=== PATIENT | female | born 1965 | race Caucasian/White ===

== ENCOUNTER → 2016-09-25 | Outpatient (CLI) | payer BC ==
[~2016-09-25] MED LIST: ABL10 PO; ABL5 PO; B-CO1TAB53 PO; DIVA500T3 PO; FEXO1TAB46 PO; IPRASOL4 INH; LAMO200T38 PO; LVX100 PO; OMEP20CA9 PO; POTA1CAP2 PO; QUET1TAB34 PO; SNK PO; SUMA20SP; SYMIN160 INH; VTMD1000 PO
[2016-09-25 17:10] LABS: BASO % 0.2 %; BASO ABS # 0.02 K/uL (0-0.2); COMPLETE YES; EOS % 0.5 %; HEMATOCRIT 36.8 % (37-47); IG% 0.2 %; LYMPH % 18.9 %; LYMPH ABS # 2.51 K/uL (1.2-3.4); MEAN CELL VOLUME 81.8 fL (80-100); MEAN CORPUSCULAR HEMOGLOBIN 27.8 pg (25-34); MEAN PLATELET VOLUME 10.5 fL (7.4-10.4); MONO % 5.1 %; NEUT % 75.1 %; PLATELET COUNT 120 K/uL (130-400); WHITE BLOOD COUNT 13.26 K/uL (4.8-10.8)
[2016-09-25 17:23] LABS: ALT/SGPT 65 U/L (12-78); AMYLASE 75 U/L (25-115); BLOOD UREA NITROGEN 20 mg/dl (7-18); BUN/CREATININE RATIO 15.6 (10-20); CALCIUM 9.8 mg/dl (8.5-10.1); CARBON DIOXIDE 27 mmol/L (21-32); CHLORIDE 105 mmol/L (98-107); GLUCOSE 123 mg/dl (70-99); POTASSIUM 3.8 mmol/L (3.5-5.1); SODIUM 141 mmol/L (136-145)
[2016-09-25 17:26] LABS: ALB/GLOB RATIO 1.6 (0.9-2); ALKALINE PHOSPHATASE 116 U/L (45-117); AST/SGOT 34 U/L (15-37)
== END | disposition home or self-care (01) ==
LOC: C.LABBC 13:40
PROVIDERS: ATTEND Family Medicine
DX: R10.10 Upper abdominal pain, unspecified (principal)

== ENCOUNTER → 2016-10-15 | Outpatient (CLI) | payer BC ==
[2016-10-15 14:37] LABS: BASO % 0.3 %; BASO ABS # 0.02 K/uL (0-0.2); COMPLETE YES; EOS % 2.9 %; HEMATOCRIT 36.5 % (37-47); IG% 0.5 %; LYMPH % 26.9 %; LYMPH ABS # 1.96 K/uL (1.2-3.4); MEAN CELL VOLUME 84.3 fL (80-100); MEAN CORPUSCULAR HEMOGLOBIN 27.3 pg (25-34); MEAN CORPUSCULAR HGB CONC 32.3 g/dl (32-36); MEAN PLATELET VOLUME 10.6 fL (7.4-10.4); MONO % 6.4 %; PLATELET COUNT 185 K/uL (130-400); RED BLOOD COUNT 4.33 M/uL (4.2-5.4); WHITE BLOOD COUNT 7.29 K/uL (4.8-10.8)
[2016-10-15 14:47] LABS: ESTIMATED AVERAGE GLUCOSE 120 mg/dl; HA1C FLAG Normal (Normal)
[2016-10-15 15:20] LABS: ALT/SGPT 61 U/L (12-78); AST/SGOT 16 U/L (15-37); BLOOD UREA NITROGEN 18 mg/dl (7-18); BUN/CREATININE RATIO 16.8 (10-20); CALCIUM 9.5 mg/dl (8.5-10.1); CARBON DIOXIDE 27 mmol/L (21-32); CHLORIDE 108 mmol/L (98-107); GLUCOSE 92 mg/dl (70-99); POTASSIUM 4.4 mmol/L (3.5-5.1); SODIUM 143 mmol/L (136-145)
[2016-10-15 15:28] LABS: ALB/GLOB RATIO 1.2 (0.9-2); ALKALINE PHOSPHATASE 135 U/L (45-117); TOTAL IRON BINDING CAPACITY 384 mcg/dl (250-450)
== END | disposition home or self-care (01) ==
LOC: C.LAB 12:56
PROVIDERS: ATTEND Family Medicine
DX: R73.09 Other abnormal glucose (principal); N18.3 Chronic kidney disease, stage 3 (moderate)

== ENCOUNTER → 2016-11-04 | Outpatient (CLI) | payer BC ==
[2016-11-04 15:15] LABS: BLOOD UREA NITROGEN 13 mg/dl (7-18); BUN/CREATININE RATIO 11.4 (10-20); CALCIUM 9.8 mg/dl (8.5-10.1); CARBON DIOXIDE 30 mmol/L (21-32); CHLORIDE 105 mmol/L (98-107); GLUCOSE 112 mg/dl (70-99); POTASSIUM 4.2 mmol/L (3.5-5.1); SODIUM 138 mmol/L (136-145)
== END | disposition home or self-care (01) ==
LOC: C.LABBC 11:35
PROVIDERS: ATTEND Family Medicine
DX: Z79.899 Other long term (current) drug therapy (principal)

== ENCOUNTER → 2016-12-05 | Outpatient (CLI) | payer BC ==
[2016-12-05 11:25] LABS: ALB/GLOB RATIO 1.4 (0.9-2); ALKALINE PHOSPHATASE 103 U/L (45-117); ALT/SGPT 71 U/L (12-78); AST/SGOT 21 U/L (15-37); BLOOD UREA NITROGEN 21 mg/dl (7-18); CALCIUM 9.3 mg/dl (8.5-10.1); CARBON DIOXIDE 24 mmol/L (21-32); CHLORIDE 112 mmol/L (98-107); CREATININE 0.93 mg/dl (0.60-1.20); GLUCOSE 119 mg/dl (70-99); POTASSIUM 4.2 mmol/L (3.5-5.1); SODIUM 144 mmol/L (136-145)
== END | disposition home or self-care (01) ==
LOC: C.LABBC 08:38
PROVIDERS: ATTEND Family Medicine
DX: F06.31 Mood disorder due to known physiological condition with depressive features (principal)

== ENCOUNTER → 2017-05-08 | Outpatient (CLI) | payer BC ==
--- NOTE | 2017-05-08 16:09 | MAMMOGRAPHY REPORT ---
BILATERAL DIGITAL SCREENING MAMMOGRAM TOMOSYNTHESIS WITH CAD: 05/08/2017 CLINICAL HISTORY: Routine screening. Patient has no complaints. TECHNIQUE: Breast tomosynthesis in addition to standard 2D mammography was performed. Current study was also evaluated with a Computer Aided Detection (CAD) system. COMPARISON: Comparison is made to exams dated: 05/07/2016 mammogram, 05/03/2015 mammogram, and 4 mammogram - [facility]. BREAST COMPOSITION: There are scattered areas of fibroglandular density in both breasts. FINDINGS: No suspicious masses, calcifications, or areas of architectural distortion are noted in ei ther breast. There has been no significant interval change compared to prior exams. IMPRESSION: ACR BI-RADS CATEGORY 1: NEGATIVE There is no mammographic evidence of malignancy. A 1 year screening mammogram is recommended. The pa tient will receive written notification of the results. Approximately 10% of breast cancers are not detected with mammography. A negative mammographic report should not delay biopsy if a clinically suggestive mass is present. Priscilla Clinton M.D. ah/:05/08/2017 13:11:49 [employer] Supervisor: Becka HUNT(Kasia)(M), [facility] letter sent: Normal 1/2 BI-RADS Code: ACR BI-RADS Category 1: Negative
== END | disposition home or self-care (01) ==
LOC: C.MAMM 08:57
PROVIDERS: ATTEND Family Medicine
DX: Z12.31 Encounter for screening mammogram for malignant neoplasm of breast (principal)

== ENCOUNTER → 2017-05-27 | Outpatient (CLI) | payer BC ==
--- NOTE | 2017-05-28 23:47 | PULMONARY FUNCTION TEST ---
PULMONARY FUNCTION TEST Spirometry is normal. Repeat study done following bronchodilators showed mild but not significant improvement in function. Flow volume loops on expiration were normal. It appeared the patient did not optimally perform the inspiratory portion of the flow volume loop.
== END | disposition home or self-care (01) ==
LOC: C.RC 12:32
PROVIDERS: ATTEND Family Medicine
DX: J45.909 Unspecified asthma, uncomplicated (principal)

== ENCOUNTER → 2017-10-14 | Day surgery (SDC) | payer BC, OTHER ==
[2017-10-03 09:55] VITALS: Ht 154.9 cm; Wt 83.6 kg
[~2017-10-14] VITALS: Ht 154.9 cm; Wt 83.6 kg
[~2017-10-14] MED LIST changes: -ABL10 PO; -ABL5 PO; +ARIP30TA3 PO; +ASCA500 PO; -DIVA500T3 PO; +LAMO200T35 PO; -LAMO200T38 PO; +LIDOCAINE HCL 2% 2 ML VIAL (20MG/ML) ONE; +LITH300T2 PO; +MIDAZOLAM HCL 1 MG/ML 2ML VIAL ONE; -OMEP20CA9 PO; +PROPOFOL IV EMULSION 10 MG/ML 20 ML VIAL IV ONE; -QUET1TAB34 PO; -SNK PO; +SODIUM CHLORIDE 0.9% 500ML 500 ML IV ONE; -SUMA20SP
--- NOTE | 2017-10-14 11:00 | Endo History and Physical ---
History & Physical Date of Service: Oct 14, 2017. Chief Complaint: screening Referring Physician: Dr. Rocky Long History of Present Illness 51 yo CF who presents for screening colonoscopy. Past Medical History Other Psy. Disorders, Depression Past Surgical History Hx Cardiac Surgery: No Hx Internal Defibrillator: No Hx Pacemaker: No Hx Abdominal Surgery: Yes (JOSE, HYSTER) Hx of Implantable Prosthesis: No Hx Post-Op Nausea and Vomiting: No Hx Cancer Surgery: No Hx Thoracic Surgery: No Hx Orthopedic: No Hx Urinary Tract Surgery: No Family History None Social History Smoking Status: Former Smoker Hx Substance Use: No Hx Alcohol Use: Yes (QUIT 7 YEARS AGO) Allergies Coded Allergies: Cat Dander (Verified Allergy, Unknown, FACIAL SWELLING AND RASH, 10/03/17) NO KNOWN DRUG ALLERGIES (Verified Allergy, Unknown, ., 10/03/17) Current Medications Reported Home Medications Medications Dose Route/Sig Max Daily Dose Days Date Category Vitamin C (Ascorbic Acid) 500 Mg Tab 1,000 Mg PO QPM 10/03/17 Reported [place] Carbonate 300 Mg Tab 2 Tabs PO HS 10/03/17 Reported [place] Carbonate 300 Mg Tab 300 Mg PO QAM 10/03/17 Reported Abilify (Aripiprazole) 30 Mg Tab 30 Mg PO HS 10/03/17 Reported Duoneb (Ipratropium-Albuterol) 3 Ml Nebu 1 Treatment INH UD PRN 10/27/14 Reported Super B-Complex (B-Complex W/Biotin & Folic Aci) 1 Tab Tab 1 Tab PO QAM 10/27/14 Reported Potassium Chloride Er (Potassium Chloride) 10 Meq Cap 10 Meq PO QPM 10/27/14 Reported Fluvoxamine Maleate 100 Mg Tab 1.5 Tabs PO QPM 10/27/14 Reported Symbicort 160/4.5 Inhaler (Budesonide/Formoterol Fumarate) 120 Puffs/ Aero 2 Puffs INH BID PRN 10/27/14 Reported Ashley (Fexofenadine Hcl) 180 Mg Tab 180 Mg PO DAILY PRN 10/27/14 Reported Vitamin D3 (Cholecalciferol) 1,000 Inter.unit Tab 1,000 Inter.unit PO BID 06/06/14 Reported Lamictal (Lamotrigine) 200 Mg Tab 200 Mg PO QPM 09/05/11 Reported Vital Signs Weight (Kilograms): 83.64 Height (Feet): 5 Height (Inches): 1 Date Time Temp Pulse Resp B/P (MAP) Pulse Ox O2 Delivery O2 Flow Rate FiO2 10/14/17 10:48 37 77 18 122/72 (89) 97 Room Air Physical Exam General Appearance: WD/WN, no apparent distress Respiratory/Chest: Auscultation: breath sounds normal Cardiovascular: Heart Auscultation: RRR Abdomen: Bowel Sounds: normal Inspection & Palpation: soft, non-distended, no tenderness, guarding & rebound Assessment and Plan Assessment: 51 yo CF who presents for screening colonoscopy. Plan: Proceed with colonoscopy.
--- NOTE | 2017-10-14 12:14 | GI REPORT ---
Procedure Date: 10/14/2017 11:00 AM Procedure: Colonoscopy Indications: Screening for colorectal malignant neoplasm Medicines: Monitored Anesthesia Care Complications: No immediate complications. Estimated Blood Loss: Estimated blood loss: none. Procedure: Pre-Anesthesia Assessment: - Prior to the procedure, a History and Physical was performed, and patient medications and allergies were reviewed. The patient's tolerance of previous anesthesia was also reviewed. The risks and benefits of the procedure and the sedation options and risks were discussed with the patient. All questions were answered, and informed consent was obtained. Prior Anticoagulants: The patient has taken no previous anticoagulant or antiplatelet agents. ASA Grade Assessment: III - A patient with severe systemic disease. After reviewing the risks and benefits, the patient was deemed in satisfactory condition to undergo the procedure. After I obtained informed consent, the scope was passed under direct vision. Throughout the procedure, the patient's blood pressure, pulse, and oxygen saturations were monitored continuously. The scope was introduced through the anus and advanced to the terminal ileum. The colonoscopy was performed without difficulty. The patient tolerated the procedure well. The quality of the bowel preparation was good. The terminal ileum, the appendiceal orifice and the rectum were photographed. Findings: The perianal and digital rectal examinations were normal. Two sessile polyps were found in the transverse colon and ascending colon. The polyps were 4 to 6 mm in size. These polyps were removed with a hot snare. Resection and retrieval were complete. Non-bleeding internal hemorrhoids were found during retroflexion. The hemorrhoids were small. Impression: - Two 4 to 6 mm polyps in the transverse colon and in the ascending colon, removed with a hot snare. Resected and retrieved. - Non-bleeding internal hemorrhoids. Recommendation: - Resume previous diet. - Continue present medications. - Repeat colonoscopy for surveillance based on pathology results. - Return to primary care physician as previously scheduled. Bijan Cevallos, DO 10/14/2017 12:14:39 PM This report has been signed electronically. Note Initiated On: 10/14/2017 11:00 AM I attest to the content of the Intraoperative Record and orders documented therein, exceptions below
--- NOTE | 2017-10-14 12:15 | Discharge Instructions ---
Endoscopy Patient Instructions Date / Procedure(s) Performed Oct 14, 2017. Colonoscopy Allergy Information Coded Allergies: Cat Dander (Verified Allergy, Unknown, FACIAL SWELLING AND RASH, 10/03/17) NO KNOWN DRUG ALLERGIES (Verified Allergy, Unknown, ., 10/03/17) Discharge Date / Findings Oct 14, 2017. Colon polyps Internal hemorrhoids Medication Instructions OK to resume all medications today as prescribed Reported Home Medications Medications Dose Route/Sig Max Daily Dose Days Date Category Vitamin C (Ascorbic Acid) 500 Mg Tab 1,000 Mg PO QPM 10/03/17 Reported [place] Carbonate 300 Mg Tab 2 Tabs PO HS 10/03/17 Reported Miner Carbonate 300 Mg Tab 300 Mg PO QAM 10/03/17 Reported Abilify (Aripiprazole) 30 Mg Tab 30 Mg PO HS 10/03/17 Reported Duoneb (Ipratropium-Albuterol) 3 Ml Nebu 1 Treatment INH UD PRN 10/27/14 Reported Super B-Complex (B-Complex W/Biotin & Folic Aci) 1 Tab Tab 1 Tab PO QAM 10/27/14 Reported Potassium Chloride Er (Potassium Chloride) 10 Meq Cap 10 Meq PO QPM 10/27/14 Reported Fluvoxamine Maleate 100 Mg Tab 1.5 Tabs PO QPM 10/27/14 Reported Symbicort 160/4.5 Inhaler (Budesonide/Formoterol Fumarate) 120 Puffs/ Aero 2 Puffs INH BID PRN 10/27/14 Reported Ashley (Fexofenadine Hcl) 180 Mg Tab 180 Mg PO DAILY PRN 10/27/14 Reported Vitamin D3 (Cholecalciferol) 1,000 Inter.unit Tab 1,000 Inter.unit PO BID 06/06/14 Reported Lamictal (Lamotrigine) 200 Mg Tab 200 Mg PO QPM 09/05/11 Reported Provider Instructions Activity Restrictions - No exercising or heavy lifting for 24 hours. - Do not drink alcohol the day of the procedure. - Do not drive a car or operate machinery until the day after the procedure. - Do not make any important decisions or sign important papers in 24 hours after the procedure. Following Day: - Return to full activity which may include returning to work/school. Diet Start your diet with liquids and light foods (jello, soup, juice, toast). Then eat your usual diet if not nauseated. Treatment For Common After Affects For mild abdominal pain, bloating, or excessive gas: - Rest - Eat lightly - Lie on right side Follow-Up Information Follow-up with Dr. Rocky Long as scheduled Anesthesia Information What You Should Know You have had a procedure that required some medicine to reduce anxiety and discomfort. This treatment is called moderate sedation. After receiving the treatment, you may be sleepy, but you will be able to breathe on your own. The effects of the treatment may last for several hours. Follow these instructions along with Activity/Diet recommendations noted above: * Do NOT do anything where dizziness or clumsiness would be dangerous. * Rest quietly at home today, then you can be up and about tomorrow. * Have a responsible person stay with you the rest of today. * You may have had an I.V. today. If so, you may take the dressing off later today. Recommendations Call your doctor if: * Trouble breathing * Continuous vomiting for more than 24 hours * Temperature above 101 degrees * Severe abdominal pain or bloating * Pain not relieved by pain medicine ordered * There is increased drainage or redness from any incision * A large amount of rectal bleeding greater than 2-3 tablespoons. (If you had a polyp/s removed or have hemorrhoids, a small amount of blood - from the rectum is to be expected.) * You have any unanswered questions or concerns. IN THE EVENT OF A SERIOUS EMERGENCY, GO TO THE NEAREST EMERGENCY ROOM Your discharge instructions were prepared by provider Bijan Cevallos. Patient Instructions Signature Page Gayla Valentine Patient (or Guardian) Signature/Date: I have read and understand the instructions given to me by my caregivers. Caregiver/RN/Doctor Signature/Date: The above-named patient and/or guardian has received patient instructions on this date. + Original Patient Signature Page (only) stays with chart. Please make copy for patient.
[2017-10-14 12:37] VITALS: BP 125/54; PULSE 72; O2SAT 94
--- NOTE | 2017-10-14 12:50 | Anesthesiology Progress Note ---
Anesthesia Post Op Note Date & Time Oct 14, 2017 at 12:49 Vital Signs Pain Intensity: 0 Vital Signs Past 12 Hours Date Time Temp Pulse Resp B/P (MAP) Pulse Ox O2 Delivery O2 Flow Rate FiO2 10/14/17 12:37 72 18 125/54 (77) 94 Room Air 10/14/17 12:21 70 18 114/67 (83) 94 Room Air 10/14/17 12:05 71 18 124/63 (83) 94 Room Air 10/14/17 10:48 37 77 18 122/72 (89) 97 Room Air Notes Mental Status: alert / awake / arousable, participated in evaluation Pt Amnestic to Procedure: Yes Nausea / Vomiting: adequately controlled Pain: adequately controlled Airway Patency, RR, SpO2: stable & adequate BP & HR: stable & adequate Hydration State: stable & adequate Anesthetic Complications: no major complications apparent
== END | disposition home or self-care (01) ==
LOC: C.GI 10:21
PROVIDERS: ATTEND Internal Medicine
DX: Z12.11 Encounter for screening for malignant neoplasm of colon (principal); D12.3 Benign neoplasm of transverse colon; D12.2 Benign neoplasm of ascending colon; K64.8 Other hemorrhoids; J45.909 Unspecified asthma, uncomplicated; F31.9 Bipolar disorder, unspecified; G47.33 Obstructive sleep apnea (adult) (pediatric); Z90.49 Acquired absence of other specified parts of digestive tract; Z90.710 Acquired absence of both cervix and uterus; Z87.891 Personal history of nicotine dependence

== ENCOUNTER 2022-03-02 09:58 | Observation (INO) ==
[2022-03-02] MEDS ORDERED: SODIUM CHLORIDE 0.9% 1000ML 1,000 ML IV SCH ×2 (10:30→23:45)
[2022-03-02 10:54] LABS: Basophils # (auto) 0.02 K/uL (0-0.2); Basophils % (auto) 0.2 %; Eosinophils # (auto) 0.27 K/uL (0-0.5); Eosinophils % (auto) 3.3 %; Hematocrit (blood only) 33.4 % (37-47); Hemoglobin 10.7 g/dL (12.0-16.0); Immature Granulocytes # (auto) 0.01 K/uL (0.00-0.02); Immature Granulocytes % (auto) 0.1 %; Lymphocytes % (auto) 16.1 %; Mean Corpuscular Hemoglobin 28.6 pg (25-34); Mean Corpuscular Volume 89.3 fL (80-100); Mean Platelet Volume 11.1 fL (7.4-10.4); Monocytes # (auto) 0.43 K/uL (0.11-0.59); Monocytes % (auto) 5.3 %; Neutrophils # (auto) 6.03 K/uL (1.4-6.5); Platelet Count 160 K/uL (130-400); RDW Coefficient of Variation 13.1 % (11.5-14.5); RDW Standard Deviation 42.6 fL (36.4-46.3); Red Blood Count 3.74 M/uL (4.2-5.4); White Blood Count 8.06 K/uL (4.8-10.8)
[2022-03-02 10:57] LABS: D Dimer 270 ug/L FEU (0-500)
[2022-03-02 11:24] LABS: Albumin Level 4.1 gm/dl (3.4-5.0); BUN Creatinine Ratio 13.8 (10-20); Bilirubin,Total 0.6 mg/dl (0.2-1.0); Calcium 9.7 mg/dl (8.5-10.1); Est GFR (African American) 46.2 ml/min; Est GFR (Non-African American) 39.9 ml/min; Globulin 2.1 gm/dl (2.5-4.0); Magnesium 2.1 mg/dl (1.7-2.4); Potassium 4.4 mmol/L (3.5-5.1); Total Protein 6.2 gm/dl (6.0-8.3)
[2022-03-02 11:26] LABS: Troponin I High Sensitivity 3.1 pg/ml (0-14)
--- NOTE | 2022-03-02 11:41 | CT Scan Report ---
CT head/brain wo con CLINICAL HISTORY: 56 years-old Female with fall, confusion. Acute head injury status post fall TECHNIQUE: Multiple axial CT images of the head were obtained without contrast. A dose lowering tech nique was utilized adhering to the principles of ALARA. CT DOSE: 537.48 mGy.cm COMPARISON: 07/24/2021 FINDINGS: No acute intracranial hemorrhage, midline shift, intracranial mass, hydrocephalus, territorial ischem ia or abnormal extra-axial collection. Minimal white matter hypodensities are nonspecific and may rep resent chronic microvascular ischemic disease. The calvarium is intact. Trace mastoid effusions. Hypoplastic frontal sinuses. Metopic suture. IMPRESSION: No acute intracranial abnormality or calvarial fracture. ACT 112: Negative or not required by law. The above report was generated using voice recognition software. It may contain grammatical, syntax o r spelling errors. Electronically signed by: Clark Costa M.D. 03/02/2022 11:40 AM
--- NOTE | 2022-03-02 11:47 | XRay Report ---
XR chest 1V portable HISTORY: 56 years-old Female cough acute cough COMPARISON: Chest radiograph 07/24/2021 TECHNIQUE: Portable AP view of the chest FINDINGS: The cardiac silhouette is mildly enlarged. Minimal linear scarring/atelectasis of the lateral left blank ng base. No pneumothorax, pleural effusion, airspace consolidation or overt pulmonary edema. The bone s of the chest appear grossly intact. Mild sigmoidal thoracolumbar scoliosis redemonstrated. IMPRESSION: No acute process. ACT 112: Negative or not required by law. The above report was generated using voice recognition software. It may contain grammatical, syntax o r spelling errors. Electronically signed by: Clark Costa M.D. 03/02/2022 11:46 AM
[2022-03-02 12:00] LABS: Appearance Urine Clear (Clear); Bacteria Urine Automated Negative (Negative); Bilirubin Urine Negative (Negative); Blood Urine Negative (Negative); Cast Urine Automated 0 /lpf (0-5); Color Urine Yellow; Epithelial Cell Urine Auto >30 /lpf (0-5); Glucose Urine UA Negative (Negative); Ketones Urine Negative (Negative); Leukocyte Esterase Urine 2+ (Negative); Nitrite Urine Negative (Negative); Protein Urine Negative (Negative); RBC Urine Automated 0-4 /hpf (0-4); Specific Gravity Urine 1.009 (1.000-1.030); Urobilinogen Urine Negative (Negative); pH Urine 5.5 (4.5-7.5)
--- NOTE | 2022-03-02 13:00 | Emergency Department Note ---
Impression & Plan Acute dehydration, Acute hypotension, CHI (closed head injury), Fall, UTI (urinary tract infection), Abdominal pain, epigastric ED Provider Note INFORMANT: Patient ED PROVIDER(S): Dayron Mathur MD CHIEF COMPLAINT: Dehydration PLAN: Disposition: Admitted Condition: Good Outpatient prescription management: none Referral: None MEDICAL DECISION MAKING: Patient presented to the emergency department because of concerns for dehydration. She was generally weak. Nonfocal examination. She was hydrated. She was found to have mildly low blood pressures at baseline and then had some hypotension noted. ED. Despite fluid hydration she still had additional blood pressure measurements that were low. She was bradycardic without any obvious changes on her ECG. Her work-up revealed a negative D-dimer and troponin. Her COVID testing was negative. Urinalysis showed some concern for infection but her symptoms have been going on and expected from just a UTI. The patient was given a dose of Rocephin and culture was ordered. CBC was unremarkable. Her chemistry panel did reveal some mild ERNIE. Discussed with patient and . Further management will be necessary in the hospital. Consultation was made with Dr. Becker of the hospitalist service. Patient was evaluated in the ER for further management. Triage Nursing notes reviewed and agree them. Vital Signs: reviewed and remarkable for mild hypotension Differential diagnosis: Infection, dehydration, metabolic abnormality, hypo/hyperglycemia, electrolyte disturbance, anemia, hypoxia, cardiac sources, intracerebral event, toxicologic, neurologic, as well as other pathologies. Diagnostics interpreted by me: ECG: Lead ECG with sinus bradycardia [address] elevation or depression. No PACs or PVCs. Normal axis. Cardiac Monitoring: Cardiac monitoring ordered by me: The patient was placed on continuous cardiac monitoring and observed. It revealed a sinus bradycardia 57 beats per minute without ectopy or evidence of dysrhythmia. Imaging studies: Chest x-ray. Findings: A chest x-ray was performed and revealed no pneumothorax, effusion, infiltrate, pulmonary edema, free air under the diaphragm, or wide mediastinum. Impression: No acute disease. Head CT: A noncontrast CT scan of the head was performed and was negative for tumor, fracture, intracranial hemorrhage, or other acute pathology. CT scan of the abdomen pelvis does not reveal any obvious acute pathology. Question underdistention versus mild gastritis of the stomach. Nodularity noted of the peritoneum. I refer you to the EMR for further details. HPI: The patient is a 56year old female who presents to the Emergency Room with complaints of dehydration. This started last month and is worsening. Traveled to [place] and tested negative for COVID. She developed a chest cold over there and tested again for COVID and was negative. states that she seemed to be a little off prior to her trip. She has been getting weaker and is unsteady. On her way home to the [facility] the patient did fall and strike the right side of her head at the airport. No loss of consciousness. She did suffer a small hematoma and has some bruising. Patient's appetite has been down. She saw her primary physician yesterday and there was some concerns for dehydration. Blood work was obtained. Patient did try to orally hydrate. She did not im prove with that and with dehydration showing on her blood work she was recommended to come to the ER. Patient denies any current pain.Pt denies LOC, headache, fevers, chills, diaphoresis, visual changes, neck pain, chest pain, breathing difficulties, nausea, vomiting, abdominal pain, back pain, melena, hematochezia, urinary symptoms, numbness, lymphadenopathy, rash, or other complaints. ROS: See above HPI for pertinent positives & negatives. A total of 10 systems re viewed and were otherwise negative. PAST MEDICAL HISTORY:See Below , pancreatitis PAST SURGICAL HISTORY:See Below, FAMILY HISTORY:See below SOCIAL HISTORY:See Below, HOME MEDICATIONS:See Below ALLERGIES:See Below VITALS:See Below PHYSICAL EXAMINATION: GENERAL: Awake, alert, tired-appearing, in no distress HENT: Normocephalic, contusion noted to the right forehead. No lacerations. Oropharynx unremarkable. EYES: Normal conjunctiva. Sclera non-icteric. PERRL. EOMI. NECK: Inspection normal. Non-tender. Supple. No nuchal rigidity. FROM. No masses. RESPIRATORY: Clear to auscultation. No wheezes. No rales. Normal respiratory effort. CARDIAC: Normal rate. Normal rhythm. No murmurs. No rubs. Extremities warm and well perfused. Pulses equal. No JVD. GI: Soft, non-distended. No tenderness to palpation. No rebound or guarding. No masses. RECTAL: Deferred. MUSCULOSKELETAL: Atraumatic. Chest examination reveals no tenderness. The back is symmetrical on inspection without obvious abnormality. There is no CVA tenderness to palpation. No joint edema. LOWER EXTREMITIES: Calves are equal size bilaterally and non-tender. No edema. No discoloration. NEURO: Normal sensorium. Generally weak but no focal sensory or motor deficits noted. No drift. SKIN: No rash or jaundice noted. Dayron Mathur MD Past Med/Surg History Medical History Anxiety Asthma allergy induced--inhaler/neb prn Bipolar disorder Bronchitis Dehydration Depression Dyspnea Fatty liver, alcoholic Frequent urination GERD (gastroesophageal reflux disease) History of colon polyps Ileus Migraine Migraine with aura and without status migrainosus, not intractable Pancreatitis Pancreatitis PNA (pneumonia) Restless leg syndrome RLL pneumonia Sleep apnea cpap Tremor Urinary tract infection Surgical History H/O: hysterectomy History of cholecystectomy History of colonoscopy History of esophagogastroduodenoscopy (EGD) History of tooth extraction all upper teeth History of total hysterectomy with bilateral salpingo-oophorectomy (BSO) History of wisdom tooth extraction Family History Other No family history of adverse response to anesthesia Social History Smoking Status: Former smoker Second Hand Exposure: Yes (parents smoked); Hx Alcohol Use: Yes (quit about 5 yrs ago--was an alcoholic) Hx Substance Use: No Preferred Language: Wallisian Communication Ability: Effective Trade Analyst Required: No Beliefs That Will Affect Care: None Current Living Situation: Spouse Feels Safe at Home: Yes Assistive Devices: CPAP, Denture - Upper and Nebulizer Allergies Allergies Allergy/AdvReac Type Severity Reaction Status Date / Time cat dander Allergy Intermediate FACIAL Verified 08/22/21 08:40 SWELLING AND RASH amoxicillin AdvReac Unknown contraindic Verified 08/22/21 08:40 ation clarithromycin [From Biaxin] AdvReac Unknown contraindic Verified 08/22/21 08:40 ation levofloxacin AdvReac Unknown contraindication Verified 08/22/21 08:40 to med Home Meds Home Medications Medication Instructions Recorded Confirmed ascorbic acid (vitamin C) 1,000 mg 1 g PO QAM 03/02/19 08/22/21 tablet (Vitamin C) cholecalciferol (vitamin D3) 25 1,000 unit PO QAM 03/02/19 08/22/21 mcg (1,000 unit) tablet (Vitamin D3) fluvoxamine 100 mg tablet 200 mg PO HS 03/02/19 08/22/21 lithium carbonate 300 mg capsule 300 mg PO AMHS 03/02/19 08/22/21 lorazepam 0.5 mg tablet (Ativan) 0.5 mg PO BID 03/02/19 08/22/21 omeprazole 20 mg tablet,delayed 20 mg PO QAM 03/02/19 08/22/21 release paroxetine HCl 20 mg tablet (Paxil) 10 mg PO QAM 07/04/19 08/22/21 temazepam 15 mg capsule (Restoril) 30 mg PO HS 07/04/19 08/22/21 vitamin E 400 unit capsule 400 unit PO QDL 07/04/19 08/22/21 levothyroxine 50 mcg tablet 50 mcg PO DAILY 02/08/20 08/22/21 (Synthroid) albuterol sulfate 2.5 mg INHALATION Q4H PRN 05/16/20 08/22/21 lithium carbonate 150 mg capsule 150 mg PO QDL cap 09/04/20 08/22/21 diclofenac sodium 75 mg 75 mg PO BID 07/24/21 08/22/21 tablet,delayed release lamotrigine 150 mg tablet 150 mg PO HS 07/24/21 08/22/21 propranolol 20 mg tablet 20 mg PO BID 07/24/21 08/22/21 trazodone 100 mg tablet 100 mg PO HS 07/24/21 08/22/21 vitamin B complex 1 cap PO QAM 07/24/21 08/22/21 Previous Rx's Medication Instructions Recorded topiramate 50 mg tablet 50 mg PO .COMPLEX 90 Days #270 tab 08/22/21 rizatriptan 10 mg tablet 10 mg PO Q2H PRN #12 tab MDD 20 mg 08/24/21 Results & Data (ED) Vital Signs Vital Signs - 24 hr 03/02/22 10:01 03/02/22 10:38 03/02/22 11:00 Temperature 36.8 C Temperature Source Temporal Artery Scan Pulse Rate - Lying Pulse Rate - Sitting Pulse Rate - Standing Pulse Rate 66 57 L Pulse Rhythm Regular Pulse Strength Normal Respiratory Rate 20 24 Respiratory Effort / Characteristics Non-Labored Spontaneous Respiratory Depth Normal Respiratory Pattern Regular Blood Pressure - Lying Blood Pressure - Sitting Blood Pressure- Standing Blood Pressure 102/52 L 89/48 L Blood Pressure Mean 68 61 Blood Pressure Position Sitting Pulse Oximetry 99 Oxygen Delivery Method Room Air Room Air Sepsis Recent Fever Within 48 Hours No Sepsis New/Unexplained Change in Mental Status N/A Sepsis Action Taken by Nursing No Action Required 03/02/22 12:58 Temperature Temperature Source Pulse Rate - Lying 57 L Pulse Rate - Sitting 64 Pulse Rate - Standing 60 Pulse Rate Pulse Rhythm Pulse Strength Respiratory Rate Respiratory Effort / Characteristics Respiratory Depth Respiratory Pattern Blood Pressure - Lying 89/57 L Blood Pressure - Sitting 84/61 L Blood Pressure- Standing 101/61 Blood Pressure Blood Pressure Mean Blood Pressure Position Pulse Oximetry Oxygen Delivery Method Sepsis Recent Fever Within 48 Hours Sepsis New/Unexplained Change in Mental Status Sepsis Action Taken by Nursing Laboratory Data Result diagrams: 03/02/22 10:10 03/02/22 10:10 Lab Results 03/02/22 03/02/22 03/02/22 Range/Units 10:10 10:10 10:10 WBC 8.06 (4.8-10.8) K/uL RBC 3.74 L (4.2-5.4) M/uL Hgb 10.7 L (12.0-16.0) g/dL Hct 33.4 L (37-47) % MCV 89.3 (80-100) fL MCH 28.6 (25-34) pg MCHC 32.0 (32-36) g/dL RDW Std Deviation 42.6 (36.4-46.3) fL RDW Coeff of Donald 13.1 (11.5-14.5) % Plt Count 160 (130-400) K/uL MPV 11.1 H (7.4-10.4) fL Immature Gran % (Auto) 0.1 % Neut % (Auto) 75.0 % Lymph % (Auto) 16.1 % [place] % (Auto) 5.3 % Eos % (Auto) 3.3 % Baso % (Auto) 0.2 % Neut # (Auto) 6.03 (1.4-6.5) K/uL Lymph # (Auto) 1.30 (1.2-3.4) K/uL [place] # (Auto) 0.43 (0.11-0.59) K/uL Eos # (Auto) 0.27 (0-0.5) K/uL Baso # (Auto) 0.02 (0-0.2) K/uL Immature Gran # (Auto) 0.01 (0.00-0.02) K/uL D-Dimer 270 (0-500) ug/L FEU Sodium 135 L (136-145) mmol/L Potassium 4.4 (3.5-5.1) mmol/L Chloride 107 (98-107) mmol/L Carbon Dioxide 24 (21-32) mmol/L Anion Gap 4 (3-11) BUN 20 (6-23) mg/dl Creatinine 1.45 H (0.6-1.2) mg/dl Est Cr Clr Drug Dosing 36.0 ml/min Est GFR ( Amer) 46.2 ml/min Est GFR (Non-Af Amer) 39.9 ml/min BUN/Creatinine Ratio 13.8 (10-20) Glucose 158 H (70-99(Fasting)) mg/dl Calcium 9.7 (8.5-10.1) mg/dl Magnesium 2.1 (1.7-2.4) mg/dl Total Bilirubin 0.6 (0.2-1.0) mg/dl AST 13 (13-39) U/L ALT 32 (7-52) U/L Alkaline Phosphatase 205 H (34-104) U/L Troponin I High Sens 3.1 (0-14) pg/ml Total Protein 6.2 (6.0-8.3) gm/dl Albumin 4.1 (3.4-5.0) gm/dl Globulin 2.1 L (2.5-4.0) gm/dl Albumin/Globulin Ratio 2.0 (0.9-2) Lipase (11-82) U/L TSH (0.300-4.500) uIu/ml Urine Color Urine Appearance (Clear) Urine pH (4.5-7.5) Ur Specific [place] (1.000-1.030) Urine Protein (Negative) Urine Glucose (UA) (Negative) Urine Ketones (Negative) Urine Blood (Negative) Urine Nitrite (Negative) Urine Bilirubin (Negative) Urine Urobilinogen (Negative) Ur Leukocyte Esterase (Negative) Urine WBC (Auto) (0-5) /hpf Urine RBC (Auto) (0-4) /hpf U Hyaline Cast (Auto) (0-5) /lpf U Epithel Cells (Auto) (0-5) /lpf Urine Bacteria (Auto) (Negative) SARS-CoV-2, RNA, NAAT (NEGATIVE) 03/02/22 03/02/22 03/02/22 Range/Units 10:10 10:42 10:42 WBC (4.8-10.8) K/uL RBC (4.2-5.4) M/uL Hgb (12.0-16.0) g/dL Hct (37-47) % MCV (80-100) fL MCH (25-34) pg MCHC (32-36) g/dL RDW Std Deviation (36.4-46.3) fL RDW Coeff of Donald (11.5-14.5) % Plt Count (130-400) K/uL MPV (7.4-10.4) fL Immature Gran % (Auto) % Neut % (Auto) % Lymph % (Auto) % [place] % (Auto) % Eos % (Auto) % Baso % (Auto) % Neut # (Auto) (1.4-6.5) K/uL Lymph # (Auto) (1.2-3.4) K/uL [place] # (Auto) (0.11-0.59) K/uL Eos # (Auto) (0-0.5) K/uL Baso # (Auto) (0-0.2) K/uL Immature Gran # (Auto) (0.00-0.02) K/uL D-Dimer (0-500) ug/L FEU Sodium (136-145) mmol/L Potassium (3.5-5.1) mmol/L Chloride (98-107) mmol/L Carbon Dioxide (21-32) mmol/L Anion Gap (3-11) BUN (6-23) mg/dl Creatinine (0.6-1.2) mg/dl Est Cr Clr Drug Dosing ml/min Est GFR ( Amer) ml/min Est GFR (Non-Af Amer) ml/min BUN/Creatinine Ratio (10-20) Glucose (70-99(Fasting)) mg/dl Calcium (8.5-10.1) mg/dl Magnesium (1.7-2.4) mg/dl Total Bilirubin (0.2-1.0) mg/dl AST (13-39) U/L ALT (7-52) U/L Alkaline Phosphatase (34-104) U/L Troponin I High Sens (0-14) pg/ml Total Protein (6.0-8.3) gm/dl Albumin (3.4-5.0) gm/dl Globulin (2.5-4.0) gm/dl Albumin/Globulin Ratio (0.9-2) Lipase 12 (11-82) U/L TSH 1.588 (0.300-4.500) uIu/ml Urine Color Urine Appearance (Clear) Urine pH (4.5-7.5) Ur Specific [place] (1.000-1.030) Urine Protein (Negative) Urine Glucose (UA) (Negative) Urine Ketones (Negative) Urine Blood (Negative) Urine Nitrite (Negative) Urine Bilirubin (Negative) Urine Urobilinogen (Negative) Ur Leukocyte Esterase (Negative) Urine WBC (Auto) (0-5) /hpf Urine RBC (Auto) (0-4) /hpf U Hyaline Cast (Auto) (0-5) /lpf U Epithel Cells (Auto) (0-5) /lpf Urine Bacteria (Auto) (Negative) SARS-CoV-2, RNA, NAAT NEGATIVE (NEGATIVE) 03/02/22 Range/Units 11:15 WBC (4.8-10.8) K/uL RBC (4.2-5.4) M/uL Hgb (12.0-16.0) g/dL Hct (37-47) % MCV (80-100) fL MCH (25-34) pg MCHC (32-36) g/dL RDW Std Deviation (36.4-46.3) fL RDW Coeff of Donald (11.5-14.5) % Plt Count (130-400) K/uL MPV (7.4-10.4) fL Immature Gran % (Auto) % Neut % (Auto) % Lymph % (Auto) % [place] % (Auto) % Eos % (Auto) % Baso % (Auto) % Neut # (Auto) (1.4-6.5) K/uL Lymph # (Auto) (1.2-3.4) K/uL [place] # (Auto) (0.11-0.59) K/uL Eos # (Auto) (0-0.5) K/uL Baso # (Auto) (0-0.2) K/uL Immature Gran # (Auto) (0.00-0.02) K/uL D-Dimer (0-500) ug/L FEU Sodium (136-145) mmol/L Potassium (3.5-5.1) mmol/L Chloride (98-107) mmol/L Carbon Dioxide (21-32) mmol/L Anion Gap (3-11) BUN (6-23) mg/dl Creatinine (0.6-1.2) mg/dl Est Cr Clr Drug Dosing ml/min Est GFR ( Amer) ml/min Est GFR (Non-Af Amer) ml/min BUN/Creatinine Ratio (10-20) Glucose (70-99(Fasting)) mg/dl Calcium (8.5-10.1) mg/dl Magnesium (1.7-2.4) mg/dl Total Bilirubin (0.2-1.0) mg/dl AST (13-39) U/L ALT (7-52) U/L Alkaline Phosphatase (34-104) U/L Troponin I High Sens (0-14) pg/ml Total Protein (6.0-8.3) gm/dl Albumin (3.4-5.0) gm/dl Globulin (2.5-4.0) gm/dl Albumin/Globulin Ratio (0.9-2) Lipase (11-82) U/L TSH (0.300-4.500) uIu/ml Urine Color Yellow Urine Appearance Clear (Clear) Urine pH 5.5 (4.5-7.5) Ur Specific [place] 1.009 (1.000-1.030) Urine Protein Negative (Negative) Urine Glucose (UA) Negative (Negative) Urine Ketones Negative (Negative) Urine Blood Negative (Negative) Urine Nitrite Negative (Negative) Urine Bilirubin Negative (Negative) Urine Urobilinogen Negative (Negative) Ur Leukocyte Esterase 2+ H (Negative) Urine WBC (Auto) 10-30 H (0-5) /hpf Urine RBC (Auto) 0-4 (0-4) /hpf U Hyaline Cast (Auto) 0 (0-5) /lpf U Epithel Cells (Auto) >30 H (0-5) /lpf Urine Bacteria (Auto) Negative (Negative) SARS-CoV-2, RNA, NAAT (NEGATIVE) Administered Medications Sodium Chloride (Nss 1000ml) 1,000 mls @ 125 mls/hr IV .Q8H STA Stop: 03/02/22 22:09 Last Admin: 03/02/22 14:38 Dose: 125 mls/hr Documented by: [id number] Discontinued Medications Sodium Chloride (Nss 1000ml) 1,000 mls @ 999 mls/hr IV .Q1H1M NICK Stop: 03/02/22 11:30 Last Infusion: 03/02/22 11:49 Dose: 0 mls/hr Documented by: [id number] Admin: 03/02/22 10:43 Dose: 999 mls/hr Documented by: [id number] Sodium Chloride (Nss 1000ml) 500 mls @ 999 mls/hr IV .Q31M ONE Stop: 03/02/22 13:32 Last Infusion: 03/02/22 14:16 Dose: 0 mls/hr Documented by: [id number] Admin: 03/02/22 13:14 Dose: 999 mls/hr Documented by: [id number] Sodium Chloride (Nss 1000ml) 500 mls @ 999 mls/hr IV .Q31M ONE Stop: 03/02/22 14:40 Last Admin: 03/02/22 14:39 Dose: 999 mls/hr Documented by: [id number] Ceftriaxone Sodium (Rocephin) 1,000 mg in 50 mls @ 100 mls/hr IV NOW STA Stop: 03/02/22 14:42 Last Admin: 03/02/22 14:43 Dose: 100 mls/hr Documented by: [id number] Ioversol (Optiray 320 100ml) 93 ml IV ONCE ONE Stop: 03/02/22 13:37 Last Admin: 03/02/22 13:37 Dose: 93 ml Documented by: [id number] Imaging Data Radiologist's Impression: Chest X-Ray 03/02/22 10:18 XR chest 1V portable HISTORY: 56 years-old Female cough acute cough COMPARISON: Chest radiograph 07/24/2021 TECHNIQUE: Portable AP view of the chest FINDINGS: The cardiac silhouette is mildly enlarged. Minimal linear scarring/atelectasis of the lateral left lung base. No pneumothorax, pleural effusion, airspace consolidation or overt pulmonary edema. The bones of the chest appear grossly intact. Mild sigmoidal thoracolumbar scoliosis redemonstrated. IMPRESSION: No acute process. ACT 112: Negative or not required by law. The above report was generated using voice recognition software. It may contain grammatical, syntax or spelling errors. Electronically signed by: Clark Costa M.D. 03/02/2022 11:[address] 03/02/22 10:33 CT head/brain wo con CLINICAL HISTORY: 56 years-old Female with fall, confusion. Acute head injury status post fall TECHNIQUE: Multiple axial CT images of the head were obtained without contrast. A dose lowering technique was utilized adhering to the principles of ALARA. CT DOSE: 537.48 mGy.cm COMPARISON: 07/24/2021 FINDINGS: No acute intracranial hemorrhage, midline shift, intracranial mass, hydrocephalus, territorial ischemia or abnormal extra-axial collection. Minimal white matter hypodensities are nonspecific and may represent chronic microvascular ischemic disease. The calvarium is intact. Trace mastoid effusions. Hypoplastic frontal sinuses. Metopic suture. IMPRESSION: No acute intracranial abnormality or calvarial fracture. ACT 112: Negative or not required by law. The above report was generated using voice recognition software. It may contain grammatical, syntax or spelling errors. Electronically signed by: Clark Costa M.D. 03/02/2022 11:40 AM Abdomen/Pelvis CT 03/02/22 13:[address] WITH IV CONTRAST CT DOSE: 382.83 mGy.cm HISTORY: Acute epigastric abdominal pain in a patient with reported dehydration epigastric abd pain, dehydration TECHNIQUE: Multiaxial CT images of the abdomen and pelvis were performed following the IV administration of 93 cc of Optiray, A dose lowering technique was utilized adhering to the principles of ALARA. COMPARISON STUDY: CT abdomen and pelvis 01/18/2021 FINDINGS: No acute process of the imaged lower chest. Mild subsegmental dependent bibasilar atelectasis. No pneumatosis or pneumoperitoneum. The spleen is enlarged measuring up to 15.7 cm. There is chronic narrowing of the splenic vein with perigastric varices. Hypodensity adjacent to the splenic hilum abuts the adjacent stomach measuring 2.7 x 1.9 cm. This in the same distribution as th e previously described multiloculated pseudocyst which measured up to 4.3 cm. Atrophic pancreas. No CT evidence of acute pancreatitis. Unremarkable adrenal glands. Cholecystectomy. The liver is within normal limits. There is patency of the hepatic and portal veins. Unremarkable kidneys. No hydronephrosis. Hysterectomy. Unremarkable urinary bladder. Aorta and IVC are unremarkable. There is no lymphadenopathy identified. No bowel obstruction or bowel wall thickening. There is mild wall thickening of the distal stomach. No perigastric inflammation. There is no bowel obstruction or bowel wall thickening. Trace fluid/nodularity of the peritoneum/omentum on image 135 series 3 has mildly progressed from the prior study. Moderate colonic fecal retention. Normal appendix. Tiny fat filled periumbilical hernia. Subacute appearing fracture of the lateral left seventh rib with partially imaged sclerosis of the lateral sixth rib. Mild lumbar levoscoliosis. IMPRESSION: 1. Hypodense structure adjacent to the splenic hilum measuring up to 2.7 cm is suggestive of residual pseudocyst which previously measured over 4 cm on the 01/18/2021 study. 2. Atrophic pancreas. No CT evidence of acute pancreatitis. 3. Moderate fecal retention. No bowel obstruction or bowel wall thickening. Normal appendix. 4. Wall thickening of the distal stomach may be secondary to partial distention. A nonspecific gastritis could appear similarly. 5. Mild nonspecific nodularity of the omentum/peritoneum within the abdominal left upper quadrant. 3 month follow-up CT recommended. 6. Splenomegaly with chronic splenic vein narrowing and unchanged perigastric varices. 7. Additional findings as above. ACT 112: Negative or not required by law. The above report was generated using voice recognition software. It may contain grammatical, syntax or spelling errors. Electronically signed by: Clark Costa M.D. 03/02/2022 1:52 PM Discharge Plan Visit Data Chief Complaint: Dehydration Stated Complaint: BRONCHITIS/DEHYDRATED - REF BY DR VAN Provider: Dayron Mathur Discharge Problem: Acute dehydration, Acute hypotension, CHI (closed head injury), Fall, UTI (urinary tract infection), Abdominal pain, epigastric Forms Stand Alone Forms: [employer] Prescriptions Prescriptions: No Action albuterol sulfate 2.5 mg /3 mL (0.083 %) solution for nebulization 2.5 mg inhalation Q4H PRN (Reason: Shortness Of Breath) RF: 0 rizatriptan 10 mg tablet 10 mg PO Q2H MDD 20 mg PRN (Reason: migraine) Qty: 12 RF: 5 levothyroxine [Synthroid] 50 mcg tablet 50 mcg PO DAILY RF: 0 lithium carbonate 150 mg capsule 150 mg PO QDL RF: 0 topiramate 50 mg tablet 50 mg PO .COMPLEX 90 Days Qty: 270 RF: 1 ascorbic acid (vitamin C) [Vitamin C] 1,000 mg Tablet 1 g PO QAM RF: 0 lorazepam [Ativan] 0.5 mg Tablet 0.5 mg PO BID RF: 0 lithium carbonate 300 mg Capsule 300 mg PO AMHS RF: 0 fluvoxamine 100 mg Tablet 200 mg PO HS RF: 0 cholecalciferol (vitamin D3) [Vitamin D3] 1,000 unit Tablet 1,000 unit PO QAM RF: 0 omeprazole 20 mg Tablet,Delayed Release (Dr/Ec) 20 mg PO QAM RF: 0 temazepam [Restoril] 15 mg Capsule 30 mg PO HS RF: 0 paroxetine HCl [Paxil] 20 mg Tablet 10 mg PO QAM RF: 0 vitamin E 400 unit Capsule 400 unit PO QDL RF: 0 lamotrigine 150 mg tablet 150 mg PO HS RF: 0 trazodone [Desyrel] 100 mg Tablet 100 mg PO HS RF: 0 diclofenac sodium 75 mg tablet,delayed release (DR/EC) 75 mg PO BID RF: 0 propranolol 20 mg Tablet 20 mg PO BID RF: 0 vitamin B complex Capsule 1 cap PO QAM RF: 0 Referrals Referrals: Rocky Long MD [Primary Care Provider] -
[2022-03-02] MEDS ORDERED: SODIUM CHLORIDE 0.9% 1000ML 500 ML IV ONE ×2 (13:02→14:10)
[2022-03-02] MEDS ORDERED: OPTIRAY 320 100ml IV ONE (13:36)
--- NOTE | 2022-03-02 13:55 | CT Scan Report ---
ABDOMEN AND PELVIS CT WITH IV CONTRAST CT DOSE: 382.83 mGy.cm HISTORY: Acute epigastric abdominal pain in a patient with reported dehydration epigastric abd pain, dehydration TECHNIQUE: Multiaxial CT images of the abdomen and pelvis were performed following the IV administrat ion of 93 cc of Optiray, A dose lowering technique was utilized adhering to the principles of ALARA. COMPARISON STUDY: CT abdomen and pelvis 01/18/2021 FINDINGS: No acute process of the imaged lower chest. Mild subsegmental dependent bibasilar atelectas is. No pneumatosis or pneumoperitoneum. The spleen is enlarged measuring up to 15.7 cm. There is chronometer repairer angle narrowing of the splenic vein with perigastric varices. Hypodensity adjacent to the splenic hilum abuts the adjacent stomach measuring 2.7 x 1.9 cm. This in the same distribution as the previously d escribed multiloculated pseudocyst which measured up to 4.3 cm. Atrophic pancreas. No CT evidence of acute pancreatitis. Unremarkable adrenal glands. Cholecystectomy. The liver is within normal limits. There is patency of the hepatic and portal veins. Unremarkable kidneys. No hydronephrosis. Hysterectomy. Unremarkable urinary bladder. Aorta and IVC ar e unremarkable. There is no lymphadenopathy identified. No bowel obstruction or bowel wall thickening . There is mild wall thickening of the distal stomach. No perigastric inflammation. There is no bowel obstruction or bowel wall thickening. Trace fluid/nodularity of the peritoneum/omentum on image 135 series 3 has mildly progressed from the prior study. Moderate colonic fecal retention. Normal appendi x. Tiny fat filled periumbilical hernia. Subacute appearing fracture of the lateral left seventh rib with partially imaged sclerosis of the lateral sixth rib. Mild lumbar levoscoliosis. IMPRESSION: 1. Hypodense structure adjacent to the splenic hilum measuring up to 2.7 cm is suggestive of residual pseudocyst which previously measured over 4 cm on the 01/18/2021 study. 2. Atrophic pancreas. No CT evidence of acute pancreatitis. 3. Moderate fecal retention. No bowel obstruction or bowel wall thickening. Normal appendix. 4. Wall thickening of the distal stomach may be secondary to partial distention. A nonspecific gastri tis could appear similarly. 5. Mild nonspecific nodularity of the omentum/peritoneum within the abdominal left upper quadrant. 3 month follow-up CT recommended. 6. Splenomegaly with chronic splenic vein narrowing and unchanged perigastric varices. 7. Additional findings as above. ACT 112: Negative or not required by law. The above report was generated using voice recognition software. It may contain grammatical, syntax o r spelling errors. Electronically signed by: Clark Costa M.D. 03/02/2022 1:52 PM
[2022-03-02] MEDS ORDERED: SODIUM CHLORIDE 0.9% 1000ML 1,000 ML IV STA (14:10)
[2022-03-02] MEDS ORDERED: cefTRIAXone SODIUM 1,000 MG/50 ML BAG IV STA (14:13)
--- NOTE | 2022-03-02 15:13 | History & Physical Report ---
Date of Service March 02, 2022 Assessment & Plan (1) Weakness: Plan: - Ongoing for 1.5 months. In the setting of increased thirst, long time lithium use. ? diabetes insipidus. Also concern for Lyme disease as she also has fatigue, is bradycardic, hx of headaches (although they have no been occurring recently and when they do, seem consistent with her migraines). New anemia with Hgb 10.7, has previously been almost consistently > 12.0. - Received IVF for hypotension and ERNIE. Ceftriaxone given in ED to cover for UTI. - Test for Lyme and anaplasmosis, check lithium level, benzodiazepine level, urine Na and urine osm, AM cortisol. * Lyme IgG, IgM negative, no evidence of anaplasmosis on smear. Watrous level 1.3. Urine sodium 11. - Also check iron panel, ferritin, B12 and folate given new anemia, decreased appetite and documented history of previous excessive alcohol use. * Iron panel, ferritin, folate, B12 all within normal limits. - CT without evidence of infarct. Do not feel brain MRI is necessary at this time. but could get later on if above labs do not provide diagnosis to explain symptoms. - Hold off on further antibiotics. (2) Acute kidney injury: Plan: - Cr 1.45, BUN 24 yesterday on outpatient labs, now decreased at 20. In the setting of polydipsia for the past month or so, increased water intake yesterday per recommendation of PCP given Cr bump. - Received IVF in ED for this, as well as mild hypotension. Now normotensive, MAP has been > 65 - Follow renal function on BMP; renally dose meds as able, avoid nephrotoxins. (3) Anemia: Plan: - 10.7, without evidence of acute bleeding. No drop since yesterday's labs; last labs in our system from July 2021 she was 12.6. - Iron panel within normal limits. - Follow on CBC. (4) Abdominal pain, epigastric: Plan: - CT a/p showed gastric wall thickening, decreased in size of pseudocyst from 4.0 cm in January 2021 to 2.7 cm today. Atrophic pancreatitis. Splenomegaly and chronic splenic vein narrowing and unchanged perigastric varices. (5) Hypothyroidism: Plan: - TSH wnl here. - Continue levothyroxine 50 mcg daily. (6) Anxiety: Plan: - Continue Ativan, takes scheduled 0.5 mg in AM and afternoon. (7) Bipolar disorder: Plan: - Continue home meds: * Lamictal 150 mg HS * Watrous 300mg AM and HS. * Pacxil 10 mg daily. - Checking lithium level as above. (8) Migraine with aura and without status migrainosus, not intractable: Plan: - Continue topiramate 50 mg BID. - Continue rizatriptan prn; has not required this for the past month. patient reports her migraines typically worst in spring and fall. (9) Tremor: Plan: Continue propranolol 20 mg BID. (10) COPD (chronic obstructive pulmonary disease): Plan: - Chrinc, stable. Patient is a former smoker, quit many years ago. - Continue albuterol inhale prn; patient state she has not required it for some time. (11) Fatty liver, alcoholic: Plan: - Noted. Alk phos elevated, but at baseline. AST and ALT wnl. - Continue to follow on daily labs. (12) GERD (gastroesophageal reflux disease): Plan: - Continue PPI. Plan: - Obs med/tele. - SCDs for VTE pp.x - DNR/DNI. History of Present Illness Chief Complaint: Weakness, hypotension Primary Care Provider: Rocky Long MD Mariah Valentine is a 56-year-old female with past medical history significant for COPD, bipolar 1 disorder, cervical radiculopathy, migraine headaches, chronic pancreatitis with pancreatic cyst who presents today with concerns for dehydration. She has some ongoing symptoms over the past month, which include general confusion and difficulty finding her words that started in early January, prior to her traveling to [place]. At that time, her PCP made adjustments to her medications, specifically he reduced her lithium dose to just 300 mg in the morning at bedtime, removing the 150 mg lunch dose. No longer on Restoril, Topamax reduced from 50 mg AM and 100mg HS to 50 mg twice a day. Trazodone also reduced from 100 mg HS to 50 mg HS. since then, she has not had a confusion, but has continued to feel generally weak and fatigued, at bedside reports an obvious reduction in energy levels. He cannot get her to go on walks, something they previously did often. Other than that, she reports she has been drinking more water because she is very thirsty, but denies increased urinary output or urinary symptoms such as dysuria, hematuria, or urinary retention. She recently traveled to [place], which is where she is from was there for 3 weeks. While there, she had some URI symptoms, cough, some difficulty breathing, and headaches. She was tested for COVID twice, both test negative. She treated her symptoms with [id number] medications and this has resolved since returning to [facility]. Fatigue and weakness have begun before this. She did suffer a fall in the airport on her way home from [place], reports she was going down the escalator. She does not remember the fall well, she believes she tripped, cannot recall if she lost consciousness due to fall as she was very embarrassed and generally cannot provide much information about this. She had h er head and suffered a minor contusion, however appears to be healing well. No headaches/confusion or other acute neurological symptoms since this fall. She denies any focal weakness, numbness, or tingling. Denies any known tick bites or previous history of Lyme disease. Mildly bradycardic with heart rate midhigh 50s, soft BPs. Labs largely unremarkable, significant for Hgb 10.7, creatinine 1.45 (baseline 0.91.1), glucose 158. Alk phos 205, at baseline. UA with >30 epi cells's, 2+ leuk esterase and 1030 WBCs. COVID-negative. CXR and head CT unremarkable. CT A/P with nonspecific findings, showed atrophic pancreatitis no evidence of acute pancreatitis with residual pseudocyst, decreased in size from January 2021 study. Constipation. Distal stomach wall thickening and mild nonspecific nodularity and omentum within LUQ. Splenomegaly with chronic splenic vein narrowing, unchanged for gastric varices. Allergies Allergy/AdvReac Type Severity Reaction Status Date / Time cat dander Allergy Intermediate FACIAL Verified 03/02/22 15:14 SWELLING AND RASH amoxicillin AdvReac Unknown contraindic Verified 03/02/22 15:14 ation clarithromycin [From Biaxin] AdvReac Unknown contraindic Verified 03/02/22 15:14 ation levofloxacin AdvReac Unknown contraindication Verified 03/02/22 15:14 to [facility] Home Medications Medication Instructions Recorded Confirmed Type ascorbic acid (vitamin C) 1,000 mg 1 g PO QDL 03/02/19 03/02/22 History tablet (Vitamin C) cholecalciferol (vitamin D3) 25 1,000 unit PO QAM 03/02/19 03/02/22 History mcg (1,000 unit) tablet (Vitamin D3) fluvoxamine 100 mg tablet 200 mg PO HS 03/02/19 03/02/22 History lithium carbonate 300 mg capsule 300 mg PO AMHS 03/02/19 03/02/22 History lorazepam 0.5 mg tablet (Ativan) 0.5 mg PO BID 03/02/19 03/02/22 History omeprazole 20 mg tablet,delayed 20 mg PO QAM 03/02/19 03/02/22 History release paroxetine HCl 20 mg tablet (Paxil) 10 mg PO QAM 07/04/19 03/02/22 History vitamin E 400 unit capsule 400 unit PO QDL 07/04/19 03/02/22 History levothyroxine 50 mcg tablet 50 mcg PO DAILY 02/08/20 03/02/22 History (Synthroid) albuterol sulfate 2.5 mg INHALATION Q4H PRN 05/16/20 03/02/22 History diclofenac sodium 75 mg 75 mg PO BID 07/24/21 03/02/22 History tablet,delayed release lamotrigine 150 mg tablet 150 mg PO HS 07/24/21 03/02/22 History propranolol 20 mg tablet 20 mg PO BID 07/24/21 03/02/22 History vitamin B complex 1 cap PO QDL 07/24/21 03/02/22 History rizatriptan 10 mg tablet 10 mg PO Q2H PRN #12 tab MDD 20 mg 08/24/21 03/02/22 Rx melatonin 10 mg tablet 10 mg PO HS 03/02/22 03/02/22 History topiramate 50 mg tablet 50 mg PO BID 03/02/22 03/02/22 History trazodone 50 mg tablet 50 mg PO HS 03/02/22 03/02/22 History Past Med/Surg History Medical History (Updated 03/02/22 @ 16:18 by Samira De Leon PA-C) Anxiety Asthma allergy induced--inhaler/neb prn Bipolar disorder Bronchitis Dehydration Depression Dyspnea Fatty liver, alcoholic Frequent urination GERD (gastroesophageal reflux disease) History of colon polyps Ileus Migraine Migraine with aura and without status migrainosus, not intractable Pancreatitis Pancreatitis PNA (pneumonia) Restless leg syndrome RLL pneumonia Sleep apnea cpap Tremor Urinary tract infection Surgical History H/O: hysterectomy History of cholecystectomy History of colonoscopy History of esophagogastroduodenoscopy (EGD) History of tooth extraction all upper teeth History of total hysterectomy with bilateral salpingo-oophorectomy (BSO) History of wisdom tooth extraction Family History Other No family history of adverse response to anesthesia Social History Smoking Status: Never smoker Second Hand Exposure: No; Do You Dip or Chew Tobacco: No; Tobacco Cessation Education Requested by Patient: No Hx Alcohol Use: No Hx Substance Use: No Preferred Language: Moldovan Communication Ability: Effective House Steward/Stewardess Required: No Beliefs That Will Affect Care: None Current Living Situation: Spouse Other Information That Helps Us Care for You: No Feels Safe at Home: Yes Safety Concerns: Feels Safe At This Time Assistive Devices: None Review of Systems Review of Systems: Constitutional: increased thirst and general weakness and fatigue x1 month; No fever/chills, weakness, fatigue, myalgias, anorexia, night sweats Eyes: No diplopia, no worsening or blurred vision ENT: normal hearing, no trouble swallowing Respiratory: No cough, sputum, dyspnea at rest or on exertion Cardiovascular: No chest pain, tightness or palpitations Abdomen: No pain, nausea, vomiting, diarrhea or constipation : Denies dysuria, hematuria, increased urgency/frequency, urinary retention Musculoskeletal: No joint pain, calf pain, swelling Neurologic: No focal weakness, numbness/tingling, or balance problems Psychiatric: No anxiety or depression Skin: No rash or itch Physical Exam Physical Exam: General: awake, alert, no apparent distress Head: Normocephalic, atraumatic ENT: PERRL, EOMI, no pharyngeal exudate, mucous membranes moist Chest: Clear to auscultation, on room air, no adventitious breath sounds Cardiac: Regular rate and rhythm, no murmur, no JVD, normal peripheral pulses, good capillary refill Abdominal: TTP in upper abdomen without rebound pain; NABS x 4 quadrants, soft, no rebound, guarding Extremities: Normal inspection, no peripheral edema or erythema, calfs nontender to palpation Psych: Normal mood and affect Neuro: AAO x 3, strength intact bilaterally and rated 5/5, no motor deficits, speech is clear, no peripheral sensory deficits Skin: no rash or erythema Results & Data Results & Data ([facility]) Vital Signs (Past 12 Hours) Vital Signs Temp Pulse Resp BP Pulse Ox 03/02/22 11:00 57 L 24 89/48 L 03/02/22 10:01 36.8 C 66 20 102/52 L 99 Laboratory Results Abnormal lab results 03/02/22 03/02/22 03/02/22 Range/Units 10:10 10:10 11:15 RBC 3.74 L (4.2-5.4) M/uL Hgb 10.7 L (12.0-16.0) g/dL Hct 33.4 L (37-47) % MPV 11.1 H (7.4-10.4) fL Sodium 135 L (136-145) mmol/L Creatinine 1.45 H (0.6-1.2) mg/dl Glucose 158 H (70-99(Fasting)) mg/dl Alkaline Phosphatase 205 H (34-104) U/L Globulin 2.1 L (2.5-4.0) gm/dl Ur Leukocyte Esterase 2+ H (Negative) Urine WBC (Auto) 10-30 H (0-5) /hpf U Epithel Cells (Auto) >30 H (0-5) /lpf Diagnostic Findings Chest X-Ray 03/02/22 10:18 XR chest 1V portable HISTORY: 56 years-old Female cough acute cough COMPARISON: Chest radiograph 07/24/2021 TECHNIQUE: Portable AP view of the chest FINDINGS: The cardiac silhouette is mildly enlarged. Minimal linear scarring/atelectasis of the lateral left lung base. No pneumothorax, pleural effusion, airspace consolidation or overt pulmonary edema. The bones of the chest appear grossly intact. Mild sigmoidal thoracolumbar scoliosis redemonstrated. IMPRESSION: No acute process. ACT 112: Negative or not required by law. The above report was generated using voice recognition software. It may contain grammatical, syntax or spelling errors. Electronically signed by: Clark Costa M.D. 03/02/2022 11:[address] 03/02/22 10:33 CT head/brain wo con CLINICAL HISTORY: 56 years-old Female with fall, confusion. Acute head injury status post fall TECHNIQUE: Multiple axial CT images of the head were obtained without contrast. A dose lowering technique was utilized adhering to the principles of ALARA. CT DOSE: 537.48 mGy.cm COMPARISON: 07/24/2021 FINDINGS: No acute intracranial hemorrhage, midline shift, intracranial mass, hydrocephalus, territorial ischemia or abnormal extra-axial collection. Minimal white matter hypodensities are nonspecific and may represent chronic microvascular ischemic disease. The calvarium is intact. Trace mastoid effusions. Hypoplastic frontal sinuses. Metopic suture. IMPRESSION: No acute intracranial abnormality or calvarial fracture. ACT 112: Negative or not required by law. The above report was generated using voice recognition software. It may contain grammatical, syntax or spelling errors. Electronically signed by: Clark Costa M.D. 03/02/2022 11:40 AM Abdomen/Pelvis CT 03/02/22 13:[address] WITH IV CONTRAST CT DOSE: 382.83 mGy.cm HISTORY: Acute epigastric abdominal pain in a patient with reported dehydration epigastric abd pain, dehydration TECHNIQUE: Multiaxial CT images of the abdomen and pelvis were performed following the IV administration of 93 cc of Optiray, A dose lowering technique was utilized adhering to the principles of ALARA. COMPARISON STUDY: CT abdomen and pelvis 01/18/2021 FINDINGS: No acute process of the imaged lower chest. Mild subsegmental dependent bibasilar atelectasis. No pneumatosis or pneumoperitoneum. The spleen is enlarged measuring up to 15.7 cm. There is chronic narrowing of the splenic vein with perigastric varices. Hypodensity adjacent to the splenic hilum abuts the adjacent stomach measuring 2.7 x 1.9 cm. This in the same distribution as the previously described multiloculated pseudocyst which measured up to 4.3 cm. Atrophic pancreas. No CT evidence of acute pancreatitis. Unremarkable adrenal glands. Cholecystectomy. The liver is within normal limits. There is patency of the hepatic and portal veins. Unremarkable kidneys. No hydronephrosis. Hysterectomy. Unremarkable urinary bladder. Aorta and IVC are unremarkable. There is no lymphadenopathy identified. No bowel obstruction or bowel wall thickening. There is mild wall thickening of the distal stomach. No perigastric inflammation. There is no bowel obstruction or bowel wall thickening. Trace fluid/nodularity of the peritoneum/omentum on image 135 series 3 has mildly progressed from the prior study. Moderate colonic fecal retention. Normal appendix. Tiny fat filled periumbilical hernia. Subacute appearing fracture of the lateral left seventh rib with partially imaged sclerosis of the lateral sixth rib. Mild lumbar levoscoliosis. IMPRESSION: 1. Hypodense structure adjacent to the splenic hilum measuring up to 2.7 cm is suggestive of residual pseudocyst which previously measured over 4 cm on the 01/18/2021 study. 2. Atrophic pancreas. No CT evidence of acute pancreatitis. 3. Moderate fecal retention. No bowel obstruction or bowel wall thickening. Normal appendix. 4. Wall thickening of the distal stomach may be secondary to partial distention. A nonspecific gastritis could appear similarly. 5. Mild nonspecific nodularity of the omentum/peritoneum within the abdominal left upper quadrant. 3 month follow-up CT recommended. 6. Splenomegaly with chronic splenic vein narrowing and unchanged perigastric varices. 7. Additional findings as above. ACT 112: Negative or not required by law. The above report was generated using voice recognition software. It may contain grammatical, syntax or spelling errors. Electronically signed by: Clark Costa M.D. 03/02/2022 1:52 PM ECG Additional Comments: Sinus bradycardia Otherwise normal ECG When compared with ECG of 24-JUL-2021 14:14, Incomplete right bundle branch block is no longer Present. Code Status & VTE Plan Code Status DNR/DNI. PG Care Time/CCT Total # of Minutes Spent Total Time Spent with Patient: Total time spent is greater than 50% in coordination of care (as documented) at patient's floor/unit and/or counseling patient: Coding Level of Care Code INT OBSERVATION CARE 70M LVL 3 Diagnoses Bipolar disorder F31.9 Acute kidney injury N17.9 Abdominal pain, epigastric R10.13 Migraine with aura and without status migrainosus, not intractable G43.109 COPD (chronic obstructive pulmonary disease) J44.9 Fatty liver, alcoholic K70.0 GERD (gastroesophageal reflux disease) K21.9 Anxiety F41.9 Weakness R53.1 Tremor R25.1 Anemia D64.9 Hypothyroidism E03.9
[2022-03-02 16:58] LABS: Folate (Folic Acid) > 22.30 ng/ml (>5.38)
[2022-03-02 16:59] LABS: Amphetamines+Metham, Urine Neg (Neg); Barbiturates, Urine Neg (Neg); Benzodiazepine, Urine Neg (Neg); Cocaine, Urine Neg (Neg); MDMA (Ecstacy), Urine Neg (Neg); Methadone, Urine Neg (Neg); Opiate, Urine Neg (Neg); Phencyclidine, Urine Neg (Neg)
[2022-03-02 16:59] LABS: Vitamin B12 769 pg/ml (180-914)
[2022-03-02 17:00] LABS: Ferritin 120.5 ng/ml (8-388)
[2022-03-02 17:00] LABS: Lyme Ab IgG w/WB Rflx Negative (Negative); Lyme Ab IgM w/WB Rflx Negative (Negative)
[2022-03-02] MEDS ORDERED: ONDANSETRON INJ 2 MG/ML 2 ML VIAL IV PRN (17:09)
[2022-03-02] MEDS ORDERED: POLYETHYLENE (MIRALAX) 17 GM PACK PO PRN (17:09)
[2022-03-02] MEDS ORDERED: RIZATRIPTAN BENZOATE 10 MG TAB PO PRN (17:09)
[2022-03-02] MEDS ORDERED: ALBUTEROL 0.083% NEBU SOLN 3 ML VIAL INH PRN (17:09)
[2022-03-02] MEDS ORDERED: NORMOSOL-R 1,000 ML IV SCH (17:09)
[2022-03-02] MEDS: ACETAMINOPHEN 325 MG TAB PO PRN (20:28)
[2022-03-02] MEDS: LORazepam 0.5 MG TAB PO SCH (20:29)
[2022-03-02] MEDS: TOPIRAMATE 50 MG TAB PO SCH (20:31)
[2022-03-02] MEDS: LITHIUM CARBONATE 300 MG TAB PO SCH (20:31)
[2022-03-02] MEDS ORDERED: fluvoxaMINE MALEATE 50 MG TAB PO SCH (21:00)
[2022-03-02] MEDS ORDERED: lamoTRIgine 100 MG TAB PO SCH (21:00)
[2022-03-02] MEDS ORDERED: traZODone HCL 50 MG TAB PO SCH (21:00)
[2022-03-03 06:26] LABS: Eosinophils # (auto) 0.06 K/uL (0-0.5); Eosinophils % (auto) 2.5 %; Hematocrit (blood only) 27.3 % (37-47); Hemoglobin 8.7 g/dL (12.0-16.0); Lymphocytes % (auto) 25.2 %; Mean Corpuscular Hemoglobin 28.9 pg (25-34); Mean Corpuscular Hgb Conc 31.9 g/dL (32-36); Mean Corpuscular Volume 90.7 fL (80-100); Mean Platelet Volume 10.7 fL (7.4-10.4); Monocytes # (auto) 0.21 K/uL (0.11-0.59); Monocytes % (auto) 8.8 %; Neutrophils # (auto) 1.51 K/uL (1.4-6.5); Neutrophils % (auto) 63.5 %; Platelet Count 102 K/uL (130-400); RDW Coefficient of Variation 13.2 % (11.5-14.5); RDW Standard Deviation 43.8 fL (36.4-46.3); Red Blood Count 3.01 M/uL (4.2-5.4); White Blood Count 2.38 K/uL (4.8-10.8)
[2022-03-03] MEDS ORDERED: LEVOTHYROXINE SODIUM 50 MCG TABLET PO SCH (06:30)
[2022-03-03 06:53] LABS: Est GFR (African American) 65.3 ml/min; Est GFR (Non-African American) 56.3 ml/min
[2022-03-03 06:54] LABS: Albumin Globulin Ratio 2.1 (0.9-2); Albumin Level 3.5 gm/dl (3.4-5.0); BUN Creatinine Ratio 10.1 (10-20); Bilirubin,Total 0.3 mg/dl (0.2-1.0); Calcium 8.5 mg/dl (8.5-10.1); Creatinine Clr Calc Pharmacy 50.6 ml/min; Globulin 1.7 gm/dl (2.5-4.0); Total Protein 5.2 gm/dl (6.0-8.3)
[2022-03-03] MEDS: LITHIUM CARBONATE 300 MG TAB PO SCH (08:51)
[2022-03-03] MEDS: TOPIRAMATE 50 MG TAB PO SCH (08:51)
[2022-03-03] MEDS: LORazepam 0.5 MG TAB PO SCH (08:52)
[2022-03-03] MEDS: ACETAMINOPHEN 325 MG TAB PO PRN (08:59)
[2022-03-03] MEDS ORDERED: CHOLECALCIFEROL 1,000 UNITS 25 MCG TAB PO SCH (09:00)
[2022-03-03] MEDS ORDERED: PANTOprazole 40 MG TAB PO SCH (09:00)
[2022-03-03] MEDS ORDERED: VITAMIN B COMPLEX TAB PO SCH (09:00)
[2022-03-03] MEDS ORDERED: PARoxetine HCL 10 MG TAB PO SCH (09:00)
[2022-03-03] MEDS ORDERED: ASCORBIC ACID 500 MG TAB PO SCH (09:00)
[2022-03-03] MEDS ORDERED: TOCOPHERYL, DL-ALPHA 400 UNITS 180 MG CAP PO SCH (11:30)
--- NOTE | 2022-03-03 15:14 | Discharge Summary ---
Date of Service March 03, 2022 Admission HPI Per Admitting Provider Mariah Valentine is a 56-year-old female with past medical history significant for COPD, bipolar 1 disorder, cervical radiculopathy, migraine headaches, chronic pancreatitis with pancreatic cyst who presents today with concerns for dehydration. She has some ongoing symptoms over the past month, which include general confusion and difficulty finding her words that started in early January, prior to her traveling to [place]. At that time, her PCP made adjustments to her medications, specifically he reduced her lithium dose to just 300 mg in the morning at bedtime, removing the 150 mg lunch dose. No longer on Restoril, Topamax reduced from 50 mg AM and 100mg HS to 50 mg twice a day. Trazodone also reduced from 100 mg HS to 50 mg HS. since then, she has not had a confusion, but has continued to feel generally weak and fatigued, at bedside reports an obvious reduction in energy levels. He cannot get her to go on walks, something they previously did often. Other than that, she reports she has been drinking more water because she is very thirsty, but denies increased urinary output or urinary symptoms such as dysuria, hematuria, or urinary retention. She recently traveled to [place], which is where she is from was there for 3 weeks. While there, she had some URI symptoms, cough, some difficulty breathing, and headaches. She was tested for COVID twice, both test negative. She treated her symptoms with [id number] medications and this has resolved since returning to [facility]. Fatigue and weakness have begun before this. She did suffer a fall in the airport on her way home from [place], reports she was going down the escalator. She does not remember the fall well, she believes she tripped, cannot recall if she lost consciousness due to fall as she was very embarrassed and generally cannot provide much information about this. She had her head and suffered a minor contusion, however appears to be healing well. No headaches/confusion or other acute neurological symptoms since this fall. She denies any focal weakness, numbness, or tingling. Denies any known tick bites or previous history of Lyme disease. Mildly bradycardic with heart rate midhigh 50s, soft BPs. Labs largely unremarkable, significant for Hgb 10.7, creatinine 1.45 (baseline 0.91.1), glucose 158. Alk phos 205, at baseline. UA with >30 epi cells's, 2+ leuk esterase and 1030 WBCs. COVID-negative. CXR and head CT unremarkable. CT A/P with nonspecific findings, showed atrophic pancreatitis no evidence of acute pancreatitis with residual pseudocyst, decreased in size from January 2021 study. Constipation. Distal stomach wall thickening and mild nonspecific nodularity and omentum within LUQ. Splenomegaly with chronic splenic vein narrowing, unchanged for gastric varices. Principal Diagnosis Fatigue - Likely from medication overuse Discharge Exam Constitutional WD/WN, vitals as above Eyes EOM intact bilaterally; no conjunctival abnormality ENMT external ear and nose normal, oropharynx normal Neck trachea midline, no thyromegaly normal visual inspection Respiratory normal respiratory effort, lungs clear to auscultation no respiratory distress Cardiovascular RRR, no murmur, no edema Gastrointestinal (Abdomen) Inspection/Auscultation: abdomen normal to inspection; abdomen not distended Musculoskeletal no cyanosis or clubbing, extremities motor strength 5/5 Skin no rashes, warm and dry Neurologic moves all extremities and awake Psychiatric Orientation: alert, oriented to person and cooperative Discharge Data Allergies Allergy/AdvReac Type Severity Reaction Status Date / Time cat dander Allergy Intermediate FACIAL Verified 03/02/22 15:14 SWELLING AND RASH amoxicillin AdvReac Unknown contraindic Verified 03/02/22 15:14 ation clarithromycin [From Biaxin] AdvReac Unknown contraindic Verified 03/02/22 15:14 ation levofloxacin AdvReac Unknown contraindication Verified 03/02/22 15:14 to med Consultations 03/02/22 14:25 ED Decision to Admit Stat Ordered Studies 03/02/22 10:33 CT head/brain wo con Stat 03/02/22 13:00 CT abd pelvis IV con only Stat Hospital Course (1) Weakness: Ongoing for 1.5 months. In the setting of increased thirst, long time lithium use. ? diabetes insipidus. Also concern for Lyme disease as she also has fatigue, is bradycardic, hx of headaches (although they have no been occurring recently and when they do, seem consistent with her migraines). New anemia with Hgb 10.7, has previously been almost consistently > 12.0. - Received IVF for hypotension and ERNIE. Ceftriaxone given in ED to cover for UTI. - Test for Lyme and anaplasmosis, check lithium level, benzodiazepine level, urine Na and urine osm, AM cortisol. - All normal. * Lyme IgG, IgM negative, no evidence of anaplasmosis on smear. [place] level 1.3. Urine sodium 11. - Iron panel, ferritin, B12 and folate given new anemia, decreased appetite and documented history of previous excessive alcohol use. * Iron panel, ferritin, folate, B12 all within normal limits. - CT without evidence of infarct. - Hold off on further antibiotics. - Mcfarland better after IV fluids. Of note, she had two bottles of topiramate in her possession. She was accidentally double-taking this medication (ie 100 mg PO BID) instead of prescribed 50 mg PO BID. We did sort this out and reduced her medication to one bottle to avoid confusion. - She will speak with her psychiatrist on about possibly weaning some other medications. For instance, her lithium level was still high on our testing. Additionally, she is on two SSRIs at fairly high doses. (2) Acute kidney injury: - Cr 1.45, BUN 24 yesterday on outpatient labs, now decreased at 20. In the setting of polydipsia for the past month or so, increased water intake yesterday per recommendation of PCP given Cr bump. - Received IVF in ED for this, as well as mild hypotension. Now normotensive, MAP has been > 65 - Follow renal function on BMP; renally dose meds as able, avoid nephrotoxins. - Back to baseline by discharge. (3) Anemia: - 10.7, without evidence of acute bleeding. No drop since yesterday's labs; last labs in our system from July 2021 she was 12.6. - Iron panel within normal limits. - Follow on CBC -> Dropped further, but all cell lines were lower. Believe to be dilation. No signs of bleeding or other distress. PCP can check CBC in 1-2 weeks. (4) Abdominal pain, epigastric: CT a/p showed gastric wall thickening, decreased in size of pseudocyst from 4.0 cm in January 2021 to 2.7 cm today. Atrophic pancreatitis. Splenomegaly and chronic splenic vein narrowing and unchanged perigastric varices. - Resolved by next day. (5) Hypothyroidism: - TSH wnl here. - Continue levothyroxine 50 mcg daily. (6) Anxiety: - Continue Ativan PRN. (7) Bipolar disorder: - Continue home meds: * Lamictal 150 mg HS * [place] 300mg AM and HS. * Pacxil 10 mg daily. - [place] level was 1.3 this admission (mildly high). Consider lowering dose per pschiatry. (8) Migraine with aura and without status migrainosus, not intractable: - Continue topiramate 50 mg BID. (As above, was accidentally taking 100 mg PO BID.) - Continue rizatriptan prn; has not required this for the past month. patient reports her migraines typically worst in spring and fall. (9) Tremor: - Continue propranolol 5 mg BID PRN for tremor (10) COPD (chronic obstructive pulmonary disease): - Chrinc, stable. Patient is a former smoker, quit many years ago. - Continue albuterol inhale prn; patient state she has not required it for some time. (11) Fatty liver, alcoholic: - Noted. Alk phos elevated, but at baseline. AST and ALT wnl. - Continue to follow on daily labs. (12) GERD (gastroesophageal reflux disease): - Continue PPI. - Obs med/tele. - SCDs for VTE pp.x - DNR/DNI. Total Time Total Time Spent Total Time Spent (In Minutes): 35 Discharge Plan Discharge Items Patient Disposition: Home - Self-Care Reason For Visit: WEAKNESS, FATIGUE Discharge Diagnosis: Weakness, fatigue Activity: Resume your previous activity Non-emergency contact: Primary Care Provider and Psychiatrist Call non-emergency contact if: your symptoms worsen Follow-up/Referrals: Rodrigo Barton MD [Physician] - (Please follow up with Dr. Barton this at your normal appointment.) Rocky Long MD [Primary Care Provider] - Diet: Regular Addtl Attending Provider Instructions: Ms. Valentine, Ronak were admitted to the hospital with fatigue and tiredness. We think this was likely due to a medication issue where you were accidentally taking twice the recommended dose of topiramate because you had two separate bottles of it. We consolidated those two bottles into one, and hopefully you will feel better now. You are also on two medications called "SSRI" medications (paroxetine and fluvoxamine). You are on fairly high doses of both medications, so please ask Dr. Barton if this combination is right for you. Finally, your lithium level was slightly high this admission despite the lowered dose. Please ask Dr. Barton if a further decrease could be beneficial for you. Pending Studies at Discharge: No Stand-Alone Forms: My [facility], Smoking Cessation Medications and DC Order Prescriptions: Continued albuterol sulfate 2.5 mg /3 mL (0.083 %) solution for nebulization 2.5 mg inhalation Q4H PRN (Reason: Shortness Of Breath) RF: 0 rizatriptan 10 mg tablet 10 mg PO Q2H MDD 20 mg PRN (Reason: migraine) Qty: 12 RF: 5 levothyroxine [Synthroid] 50 mcg tablet 50 mcg PO DAILY RF: 0 ascorbic acid (vitamin C) [Vitamin C] 1,000 mg Tablet 1 g PO QDL RF: 0 lorazepam [Ativan] 0.5 mg Tablet 0.5 mg PO BID PRN (Reason: Anxiety) RF: 0 lithium carbonate 300 mg Capsule 300 mg PO AMHS RF: 0 fluvoxamine 100 mg Tablet 200 mg PO HS RF: 0 cholecalciferol (vitamin D3) [Vitamin D3] 1,000 unit Tablet 1,000 unit PO QAM RF: 0 omeprazole 20 mg Tablet,Delayed Release (Dr/Ec) 20 mg PO QAM RF: 0 vitamin E 400 unit Capsule 400 unit PO QDL RF: 0 trazodone 50 mg Tablet 50 mg PO HS RF: 0 melatonin 10 mg Tablet 10 mg PO HS RF: 0 topiramate 50 mg tablet 50 mg PO BID RF: 0 propranolol 10 mg tablet 5 mg PO BID PRN (Reason: Tremor(S)) RF: 0 paroxetine HCl 40 mg tablet 40 mg PO DAILY RF: 0 lamotrigine 150 mg tablet 150 mg PO HS RF: 0 diclofenac sodium 75 mg tablet,delayed release (DR/EC) 75 mg PO BID RF: 0 vitamin B complex Capsule 1 cap PO QDL RF: 0 Discharge Orders: Discharge Order (Routine); Ordered 03/03/22 Ordered By: Monty Becker Admission Data Admit Date/Time: 03/02/22 15:24 Attending Provider: Monty Becker Admit Provider: Monty Becker Primary Care Provider: Rocky Long Other Providers: Monty Becker Other Interventions: Discharge Summary Assessment (RN) Last Done: 03/03/22 13:37 Coding Level of Care Code 06295 OBS Care - Discharge Diagnoses Weakness R53.1 Acute kidney injury N17.9 Anemia D64.9 Abdominal pain, epigastric R10.13 Hypothyroidism E03.9 Anxiety F41.9 Bipolar disorder F31.9 Migraine with aura and without status migrainosus, not intractable G43.109 Tremor R25.1 COPD (chronic obstructive pulmonary disease) J44.9 Fatty liver, alcoholic K70.0 GERD (gastroesophageal reflux disease) K21.9
--- NOTE | 2022-03-03 19:40 | Electrocardiogram Report ---
Test Reason : Blood Pressure : / mmHG Vent. Rate : 055 BPM Atrial Rate : 055 BPM P-R Int : 208 ms QRS Dur : 094 ms QT Int : 436 ms P-R-T Axes : 040 011 037 degrees QTc Int : 417 ms Poor data quality, interpretation may be adversely affected Sinus bradycardia Otherwise normal ECG When compared with ECG of 24-JUL-2021 14:14, Incomplete right bundle branch block is no longer Present Confirmed by Natalio Garcia ([id number]) on 03/03/2022 7:40:19 PM Referred By: REFERRED SELF Confirmed By:Natalio Garcia
[2022-03-04 08:04] LABS: Estimated Average Glucose 114 mg/dl; Hemoglobin A1C 5.6 % (4.5-5.6)
== END 2022-03-03 14:23 | disposition home or self-care (01) ==
LOC: ED 09:58 → 2N 09:58

== ENCOUNTER 2023-11-26 14:33 | Inpatient (IN) ==
--- NOTE | 2023-11-26 14:43 | ED Triage Note ---
Date of Service November 26, 2023 Provider in Triage Author: Kathryn Gonzalez History of Present Illness This patient was briefly evaluated while in triage. An abbreviated physical exam was performed. This patient is a 58-year-old Female who presents to the ED for evaluation of epigastric abd pain and vomiting. Just returned from [place] yesterday. Developed rash 1 month ago that is now worsening. Previously treated with prednisone, no improvement in rash. 1 week of epigastric abd pain and nausea/vomiting. Denies fevers. Physical Exam Constitutional: alert and oriented x3. no acute distress. HEENT: normocephalic, atraumatic. normal conjunctiva.PERRLA. EOM's grossly intact. erythematous macular rash on abdomen noted. Respiratory: equal chest rise. normal respiratory effort, no accessory muscle use. Cardiovascular: regular rate and rhythm. MSK: moves all 4 extremities spontaneously Psych:appropriate mood and affect. Initial orders for labs and / or imaging were placed and patient was placed in the waiting area until a bed is available. Please see further documentation for the full ED course.
[2023-11-26 15:36] LABS: Basophils # (auto) 0.04 K/uL (0.00-0.20); Basophils % (auto) 0.3 %; Eosinophils # (auto) 0.07 K/uL (0.00-0.50); Eosinophils % (auto) 0.5 %; Hemoglobin 11.7 g/dl (12.0-16.0); Immature Granulocytes % (auto) 0.7 %; Lymphocytes % (auto) 7.1 %; Mean Corpuscular Hemoglobin 29.6 pg (25.0-34.0); Mean Corpuscular Hgb Conc 34.4 g/dL (32.0-36.0); Mean Corpuscular Volume 86.1 fL (80.0-100.0); Mean Platelet Volume 11.2 fL (9.4-12.4); Monocytes # (auto) 0.74 K/uL (0.11-0.59); Monocytes % (auto) 5.3 %; Neutrophils # (auto) 12.13 K/uL (1.40-6.50); Neutrophils % (auto) 86.1 %; Platelet Count 223 K/uL (130-400); RDW Coefficient of Variation 14.4 % (11.5-14.5); RDW Standard Deviation 45.3 fL (36.4-46.3); Red Blood Count 3.95 M/uL (4.20-5.40); White Blood Count 14.08 K/ul (4.8-10.8)
--- NOTE | 2023-11-26 16:04 | XRay Report ---
XR chest 1V portable CLINICAL HISTORY: n/v TECHNIQUE: Single frontal radiograph of the chest was obtained. Comparison: Comparison is made to chest 04/14/2023 FINDINGS: No lines and tubes are seen. The cardiomediastinal silhouette is normal. The lungs are clear. No evid ence of pleural effusion or pneumothorax. IMPRESSION: No acute chest disease. ACT 112: Negative or not required by law. Electronically signed by: Randy Yuen M.D. 11/26/2023 4:03 PM
[2023-11-26] MEDS: SODIUM CHLORIDE 0.9% 500 ML IV ONE (16:06)
[2023-11-26] MEDS: ONDANSETRON INJ 2 MG/ML 2 ML VIAL IV STA (16:06)
--- NOTE | 2023-11-26 16:33 | Emergency Department Note ---
History of Present Illness General Chief complaint: Illness Stated complaint: RASH, VOMITING, WEAKNESS, REF BY DOC Time Seen by Provider: 11/26/23 16:04 History of Present Illness Provider complaint: Multiple complaints Maximum Pain Intensity: 7 58-year-old female presents emergency department for multiple complaints. Patient reports her main complaint is the abdominal pain nausea and vomiting. She states this began yesterday after she got off of a flight from [place]. Patient does states she has a history of pancreatitis. Patient also reports she has been having difficulty breathing. Patient does have obstructive lung disease. Reports inspiratory chest pain. Patient also reports mild headache. Patient also reports a rash that has been present diffusely over her body for the last month even before she went to [place]. She states she was recently on prednisone for this prescribed by her physician Dr. Justin. Home Medications Medication Instructions Recorded Confirmed Type ascorbic acid (vitamin C) 1,000 mg 1 g PO QAM 03/02/19 11/26/23 History tablet (Vitamin C) cholecalciferol (vitamin D3) 25 1,000 unit PO QAM 03/02/19 11/26/23 History mcg (1,000 unit) tablet (Vitamin D3) fluvoxamine 100 mg tablet 200 mg PO HS 03/02/19 11/26/23 History vitamin E 268 mg (400 unit) capsule 400 unit PO QAM 07/04/19 11/26/23 History lamotrigine 150 mg tablet 150 mg PO HS 07/24/21 11/26/23 History propranolol 10 mg tablet 5 mg PO BID PRN Tremor(S) 03/03/22 11/26/23 History lithium carbonate 300 mg capsule 300 mg PO HS 07/10/22 11/26/23 History levothyroxine 50 mcg tablet 50 mcg PO QAM #90 tabs 01/21/23 11/26/23 Rx (Synthroid) olanzapine 7.5 mg tablet 7.5 mg PO HS 03/05/23 11/26/23 History triamcinolone acetonide 0.1 % 1 applic dental BID #5 grams 03/05/23 11/26/23 Rx dental paste topiramate 50 mg tablet 50 mg PO HS #90 tabs 04/02/23 11/26/23 Rx umeclidinium 62.5 mcg-vilanterol 1 inh inhalation DAILY PRN asthma 04/09/23 11/26/23 Rx 25 mcg/actuation powdr for #14 ea inhalation (Anoro Ellipta) thiamine HCl (vitamin B1) 100 mg 100 mg PO QAM 06/20/23 11/26/23 History tablet ketorolac 10 mg tablet 10 mg PO TID PRN pain 5 days #15 08/04/23 11/26/23 Rx tabs rizatriptan 10 mg tablet 10 mg PO Q2H PRN migraine #10 tabs 08/04/23 11/26/23 Rx fluticasone propionate 50 2 spray intranasal DAILY #16 grams 09/09/23 11/26/23 Rx mcg/actuation nasal spray,suspension ipratropium bromide 21 mcg (0.03 2 spray intranasal TID PRN 09/09/23 11/26/23 Rx %) nasal spray postnasal drip #30 mL famotidine 40 mg tablet 40 mg PO BID #180 tabs 10/31/23 11/26/23 Rx prazosin 5 mg capsule 5 mg PO QPM 10/31/23 11/26/23 History ropinirole 2 mg tablet 2 mg PO DAILY 10/31/23 11/26/23 History albuterol sulfate 90 mcg/actuation 1 puff inhalation DIRECTED PRN 11/26/23 11/26/23 History aerosol inhaler Shortness Of Breath Or Wheezing esomeprazole magnesium 40 mg 40 mg PO QAM 11/26/23 11/26/23 History capsule,delayed release vitamin B complex 1 tab DAILY 11/26/23 11/26/23 History Allergies Allergy/AdvReac Type Severity Reaction Status Date / Time cat dander Allergy Intermediate FACIAL Verified 11/26/23 17:56 SWELLING AND RASH clarithromycin [From Biaxin] AdvReac Unknown contraindic Verified 11/26/23 17:56 ation levofloxacin AdvReac Unknown contraindication Verified 11/26/23 17:56 to med Past Med/Surg History Medical History Seasonal rhinitis Mild persistent asthma Dysphonia Chronic cough Dry mouth Vocal cord dysfunction Sleep apnea hx; tested 10/2022, no longer needs device Chronic pancreatitis Herpes simplex hx Internal hemorrhoids Weight loss unintentional in 2021-currently "holding at the same weight" Gastritis and duodenitis Bipolar [address], [address] of the abdomen "muscle that's not working in her abdomen" Hypothyroidism Mild cardiomegaly pt unaware Acute kidney injury CHI (closed head injury) pt denies Migraine with aura and without status migrainosus, not intractable H/O: pneumonia 2021, no current symptoms History of colon polyps GERD (gastroesophageal reflux disease) Depression Anxiety Bipolar disorder Tremor Restless leg syndrome Asthma allergy induced-- inh prn Surgical History S/P excision of lipoma 2017 from arm Status post incision and drainage pancreatic pseudocyst 01/25/16 History of total hysterectomy with bilateral salpingo-oophorectomy (BSO) History of colonoscopy History of esophagogastroduodenoscopy (EGD) History of cholecystectomy History of tooth extraction all upper teeth History of wisdom tooth extraction Family History Mother Hypertension Diabetes Father Migraine Brother Multiple sclerosis Sister Migraine Other No family history of adverse response to anesthesia Denies family history of Ovarian cancer Prostate cancer Breast cancer Lung cancer Colorectal cancer Stroke Social History Smoking Status: Former smoker Tobacco Type: Cigarettes Second Hand Exposure: Yes (hx in the workplace); Do You Dip or Chew Tobacco: No; Hx Alcohol Use: No Hx Substance Use: No Preferred Language: Icelandic Communication Ability: Effective Voice Over Announcer Required: No Beliefs That Will Affect Care: None marital status: marital status details: spouse:Perez Valentine Current Living Situation: Spouse Current Living Situation Comment: Lives at home with Other Information That Helps Us Care for You: No Feels Safe at Home: Yes Safety Concerns: Feels Safe At This Time Assistive Devices: Denture - Upper and Glasses Physical Exam Vital Signs Vital Signs - 24 hr 11/26/23 14:39 11/26/23 16:11 11/26/23 18:00 Temperature 36.6 C Temperature Source Temporal Artery Scan Pulse Rate 90 Pulse Rate [Apical] 82 78 Respiratory Rate 18 20 20 Blood Pressure 144/87 H Blood Pressure [Right Arm] 135/87 118/67 Blood Pressure Mean 106 Blood Pressure Mean [Right Arm] 103 84 Pulse Oximetry 97 92 87 L Oxygen Delivery Method Room Air Room Air Room Air Oxygen Flow Rate Sepsis Recent Fever Within 48 Hours No Sepsis New/Unexplained Change in Mental Status N/A Sepsis Action Taken by Nursing No Action Required Oxygen Flow Rate - Titration Fraction of Inspired Oxygen - Titration Pulse Oximetry Post Tiitration 11/26/23 18:01 11/26/23 18:12 11/26/23 19:00 Temperature Temperature Source Pulse Rate Pulse Rate [Apical] Respiratory Rate Blood Pressure Blood Pressure [Right Arm] Blood Pressure Mean Blood Pressure Mean [Right Arm] Pulse Oximetry 87 L 97 88 L Oxygen Delivery Method Nasal Cannula Room Air Room Air Oxygen Flow Rate 0 2 Sepsis Recent Fever Within 48 Hours Sepsis New/Unexplained Change in Mental Status Sepsis Action Taken by Nursing Oxygen Flow Rate - Titration 2 0 Fraction of Inspired Oxygen - Titration 97 Pulse Oximetry Post Tiitration 95 11/26/23 19:05 Temperature Temperature Source Pulse Rate Pulse Rate [Apical] Respiratory Rate Blood Pressure Blood Pressure [Right Arm] Blood Pressure Mean Blood Pressure Mean [Right Arm] Pulse Oximetry 94 Oxygen Delivery Method Room Air Oxygen Flow Rate Sepsis Recent Fever Within 48 Hours Sepsis New/Unexplained Change in Mental Status Sepsis Action Taken by Nursing Oxygen Flow Rate - Titration Fraction of Inspired Oxygen - Titration Pulse Oximetry Post Tiitration Physical Exam GENERAL: She is oriented to person, place, and time. HENT: Exam performed. -Head: Normocephalic and atraumatic. -Right Ear: External ear normal. No mastoid erythema -Left Ear: External ear normal. No mastoid erythema -Mouth/Throat: Dry mucous membranes. No trismus in the jaw. No dental abscesses or uvula swelling. No oropharyngeal exudate or tonsillar abscesses. EYES: Conjunctivae and EOM are normal. Pupils are equal, round, and reactive to light. Right eye exhibits no discharge. Left eye exhibits no discharge. No scleral icterus. NECK: Normal range of motion. Neck supple. No JVD present. CV: Tachycardia rate, regular rhythm, normal heart sounds and intact distal pulses. There is no peripheral edema. Palpable radial pulses bue. PULM/CHEST: Expiratory wheezes bilaterally. ABD: The abdomen is soft. There is diffuse tenderness to palpation. There is no rebound, no guarding. NEURO: She is alert and oriented to person, place, and time. She has normal strength. No cranial nerve deficit or sensory deficit. Coordination and gait normal. GCS eye subscore is 4. GCS verbal subscore is 5. GCS motor subscore is 6. Cerebellar tests wnl. SKIN: Diffuse petechial rash over the bilateral lower extremities anterior abdominal and chest wall. Petechial rash is also on her back. Course Course 1604: The patient was evaluated in room B11. A complete history and physical exam was performed Cardiac monitoring: An order was placed for continuous cardiac monitoring. The monitor shows a rate of 110 with sinus tachcardia rhythm interpreted by me 1900: Nursing informed me that the patient is becoming hypoxic on room air. Labs show leukocytosis of 14.08. Coagulation studies within normal limits. Labs show a sodium of 125. Chloride of 92. Glucose 743. Serum osmolality 307. No anion gap. Osmolar gap is 10. Imaging shows no pulmonary embolus but does show infiltrate. Patient's corrected sodium with her hyperglycemia is 135. Patient be treated with IV antibiotics and [facility] given her hypoxia and pneumonia. Administered Medications Albuterol (Albut/Ipratrop 3mg/0.5mg Neb 3 Ml Vial) 3 ml NEB QIDR NICK; Protocol Stop: 12/26/23 20:54 Last Admin: 11/26/23 22:46 Dose: 3 ml Documented By: BHUMIKA Enoxaparin Sodium (Enoxaparin Inj 40 Mg/0.4 Ml Syr) 40 mg SQ Q24H NICK Stop: 12/26/23 21:59 Last Admin: 11/26/23 22:28 Dose: 40 mg Documented By: MARY Fluvoxamine Maleate (Fluvoxamine Maleate 50 Mg Tab) 200 mg PO HS NICK Stop: 12/26/23 21:49 Last Admin: 11/26/23 22:28 Dose: 200 mg Documented By: MARY Lactated Ringer's (Lr) 1,000 mls @ 100 mls/hr IV .Q10H NICK Stop: 11/27/23 16:59 Last Admin: 11/26/23 22:59 Dose: 100 mls/hr Documented By: MARY Insulin Aspart (Insulin Aspart Per Unit Charge) 0 units SC Q4 NICK Stop: 12/26/23 20:59 Last Admin: 11/26/23 21:24 Dose: 4 units Documented By: NRB Co-signed By: LCD Lamotrigine (Lamotrigine 100 Mg Tab) 150 mg PO HS NICK Stop: 12/26/23 21:59 Last Admin: 11/26/23 22:27 Dose: 150 mg Documented By: MARY [place] Carbonate ([place] Carbonate 300 Mg Tab) 300 mg PO HS NICK Stop: 12/26/23 21:49 Last Admin: 11/26/23 22:28 Dose: 300 mg Documented By: MARY Prazosin HCl (Prazosin Hcl 1 Mg Cap) 5 mg PO QPM NICK Stop: 12/26/23 21:49 Last Admin: 11/26/23 22:27 Dose: 5 mg Documented By: CR Topiramate (Topiramate 50 Mg Tab) 50 mg PO HS NICK Stop: 12/26/23 21:49 Last Admin: 11/26/23 22:26 Dose: 50 mg Documented By: MARY Discontinued Medications Albuterol (Albut/Ipratrop 3mg/0.5mg Neb 3 Ml Vial) 3 ml NEB NOW STA; Protocol Stop: 11/26/23 16:20 Last Admin: 11/26/23 16:56 Dose: 3 ml Documented By: BRIANNA Azithromycin (Azithromycin 250 Mg Tab) 500 mg PO NOW ONE Stop: 11/26/23 19:52 Last Admin: 11/26/23 21:01 Dose: Not Given Documented By: BRIANNA Sodium Chloride (Nss) 500 mls @ 999 mls/hr IV .Q31M ONE Stop: 11/26/23 15:14 Last Infusion: 11/26/23 16:49 Dose: Infused Documented By: Admin: 11/26/23 16:06 Dose: 999 mls/hr Documented By: BRIANNA Ceftriaxone Sodium (Rocephin) 2,000 mg in 50 mls @ 100 mls/hr IV NOW STA Stop: 11/26/23 20:20 Last Infusion: 11/26/23 20:51 Dose: Infused Documented By: Admin: 11/26/23 20:20 Dose: 100 mls/hr Documented By: BRIANNA Pantoprazole Sodium 40 mg/ (Syringe) 10 mls @ 5 mls/min IV NOW ONE Stop: 11/26/23 20:20 Last Admin: 11/26/23 20:37 Dose: 5 mls/min Documented By: BARBARA Famotidine (Pepcid 20mg Iv Push) 20 mg in 5 mls @ 2.5 mls/min IV NOW STA Stop: 11/26/23 20:20 Last Admin: 11/26/23 20:38 Dose: 2.5 mls/min Documented By: BARBARA Azithromycin 500 mg/ Dextrose 255 mls @ 127.5 mls/hr IV NOW STA Stop: 11/26/23 22:44 Last Admin: 11/26/23 21:58 Dose: 127.5 mls/hr Documented By: MARY Cefepime HCl 2,000 mg/ Syringe 20 mls @ 5 mls/min IV NOW ONE; Protocol Stop: 11/26/23 21:03 Last Admin: 11/26/23 21:26 Dose: 5 mls/min Documented By: BRIANNA Lactated Ringer's (Lr) 1,000 mls @ 999 mls/hr IV .Q1H1M ONE Stop: 11/26/23 21:51 Last Infusion: 11/26/23 22:56 Dose: Infused Documented By: Admin: 11/26/23 21:55 Dose: 999 mls/hr Documented By: MARY Ioversol (Optiray 350 500ml) 115 ml IV ONCE ONE Stop: 11/26/23 17:45 Last Admin: 11/26/23 17:44 Dose: 115 ml Documented By: MATEO Ondansetron HCl (Ondansetron Inj 2 Mg/Ml 2 Ml Vial) 4 mg IV NOW STA Stop: 11/26/23 14:45 Last Admin: 11/26/23 16:06 Dose: 4 mg Documented By: BRIANNA Critical Care Time Critical Care Time: Yes Total Critical Care Time: 59 I have personally spent greater than 59 minutes of critical care time in the direct management of this patient. This includes bedside care, interpretation of diagnostic studies, and testing, discussion with consultants, patient, and family members, and other required patient management activities. This 59 minutes is in excess of all separately billable procedures. Medical Decision Making Laboratory Data Attestation: I reviewed the patient's lab results. 11/26/23 15:16 11/26/23 20:55 Lab Results 11/26/23 11/26/23 11/26/23 Range/Units 15:16 15:16 15:16 WBC 14.08 H (4.8-10.8) K/ul RBC 3.95 L (4.20-5.40) M/uL Hgb 11.7 L (12.0-16.0) g/dl Hct 34.0 L (37.0-47.0) % MCV 86.1 (80.0-100.0) fL MCH 29.6 (25.0-34.0) pg MCHC 34.4 (32.0-36.0) g/dL RDW Std Deviation 45.3 (36.4-46.3) fL RDW Coeff of Donald 14.4 (11.5-14.5) % Plt Count 223 (130-400) K/uL MPV 11.2 (9.4-12.4) fL Immature Gran % (Auto) 0.7 % Neut % (Auto) 86.1 % Lymph % (Auto) 7.1 % [place] % (Auto) 5.3 % Eos % (Auto) 0.5 % Baso % (Auto) 0.3 % Neut # (Auto) 12.13 H (1.40-6.50) K/uL Lymph # (Auto) 1.00 L (1.20-3.40) K/uL [place] # (Auto) 0.74 H (0.11-0.59) K/uL Eos # (Auto) 0.07 (0.00-0.50) K/uL Baso # (Auto) 0.04 (0.00-0.20) K/uL Immature Gran # (Auto) 0.10 (0.01-0.20) K/uL PT Cancelled INR Cancelled APTT Cancelled PTT Ratio Cancelled VBG pH (7.36-7.41) VBG pCO2 (38-50) mmHg VBG pO2 mmHg VBG HCO3 mmol/L VBG O2 Saturation % VBG Base Excess mEq/L Sodium 125 L (136-145) mmol/L Potassium TNP 4.7 Chloride 92 L (98-107) mmol/L Carbon Dioxide 24 (21-32) mmol/L Anion Gap 9 (3-11) BUN 16 (6-23) mg/dl Creatinine 0.99 (0.6-1.2) mg/dl Est Cr Clr Drug Dosing 54.7 ml/min Est GFR ( Amer) 72.3 ml/min Est GFR (Non-Af Amer) 62.4 ml/min BUN/Creatinine Ratio 16.2 (10-20) Glucose 743 H* (70-99(Fasting)) mg/dl Osmolality 307 H (280-300) mOsm/kg Lactate (0.4-2.0) mmol/L Calcium 9.4 (8.6-10.3) mg/dl Magnesium 2.4 (1.7-2.4) mg/dl Total Bilirubin 0.7 (0.2-1.0) mg/dl Direct Bilirubin TNP 0.2 AST TNP ALT (7-52) U/L Alkaline Phosphatase (34-104) U/L Troponin I High Sens (0-14) pg/ml Total Protein (6.0-8.3) gm/dl Albumin (3.4-5.0) gm/dl Globulin (2.5-4.0) gm/dl Albumin/Globulin Ratio (0.9-2) Lipase (11-82) U/L Procalcitonin (0-0.5) ng/ml Urine Color Urine Appearance (Clear) Urine pH (4.5-7.5) Ur Specific [place] (1.000-1.030) Urine Protein (Negative) Urine Glucose (UA) (Negative) Urine Ketones (Negative) Urine Blood (Negative) Urine Nitrite (Negative) Urine Bilirubin (Negative) Urine Urobilinogen (Negative) Ur Leukocyte Esterase (Negative) Urine RBC (0-4) /hpf Urine WBC (0-5) /hpf Ur Epithelial Cells (0-5) /lpf Urine Bacteria (Negative) [place] (0.6-1.2) mmol/L Ethyl Alcohol mg/dL (<10.0) mg/dl Anaplasma Smear Babesia Smear Lyme Disease Screen (Negative) SARS-CoV-2 (PCR) (Negative) Influenza Type A (PCR) (Neg) Influenza Type B (PCR) (Neg) RSV (RT-PCR) (Neg) 11/26/23 11/26/23 11/26/23 Range/Units 15:16 16:13 16:25 WBC (4.8-10.8) K/ul RBC (4.20-5.40) M/uL Hgb (12.0-16.0) g/dl Hct (37.0-47.0) % MCV (80.0-100.0) fL MCH (25.0-34.0) pg MCHC (32.0-36.0) g/dL RDW Std Deviation (36.4-46.3) fL RDW Coeff of Donald (11.5-14.5) % Plt Count (130-400) K/uL MPV (9.4-12.4) fL Immature Gran % (Auto) % Neut % (Auto) % Lymph % (Auto) % [place] % (Auto) % Eos % (Auto) % Baso % (Auto) % Neut # (Auto) (1.40-6.50) K/uL Lymph # (Auto) (1.20-3.40) K/uL [place] # (Auto) (0.11-0.59) K/uL Eos # (Auto) (0.00-0.50) K/uL Baso # (Auto) (0.00-0.20) K/uL Immature Gran # (Auto) (0.01-0.20) K/uL PT 10.4 INR 0.9 APTT 34 H PTT Ratio 1.2 VBG pH 7.33 L (7.36-7.41) VBG pCO2 49 (38-50) mmHg VBG pO2 46 mmHg VBG HCO3 26 mmol/L VBG O2 Saturation 77.6 % VBG Base Excess -0.6 mEq/L Sodium (136-145) mmol/L Potassium Chloride (98-107) mmol/L Carbon Dioxide (21-32) mmol/L Anion Gap (3-11) BUN (6-23) mg/dl Creatinine (0.6-1.2) mg/dl Est Cr Clr Drug Dosing ml/min Est GFR ( Amer) ml/min Est GFR (Non-Af Amer) ml/min BUN/Creatinine Ratio (10-20) Glucose (70-99(Fasting)) mg/dl Osmolality (280-300) mOsm/kg Lactate 1.0 (0.4-2.0) mmol/L Calcium (8.6-10.3) mg/dl Magnesium (1.7-2.4) mg/dl Total Bilirubin (0.2-1.0) mg/dl Direct Bilirubin AST 8 L ALT 21 (7-52) U/L Alkaline Phosphatase 175 H (34-104) U/L Troponin I High Sens 7.9 (0-14) pg/ml Total Protein 7.2 (6.0-8.3) gm/dl Albumin 4.1 (3.4-5.0) gm/dl Globulin 3.1 (2.5-4.0) gm/dl Albumin/Globulin Ratio 1.3 (0.9-2) Lipase 65 (11-82) U/L Procalcitonin 0.10 (0-0.5) ng/ml Urine Color Yellow Urine Appearance Cloudy A (Clear) Urine pH 6.0 (4.5-7.5) Ur Specific [place] <= 1.005 (1.000-1.030) Urine Protein Negative (Negative) Urine Glucose (UA) 3+ H (Negative) Urine Ketones 1+ H (Negative) Urine Blood Trace-intact H (Negative) Urine Nitrite Negative (Negative) Urine Bilirubin Negative (Negative) Urine Urobilinogen Negative (Negative) Ur Leukocyte Esterase 1+ H (Negative) Urine RBC 0-4 (0-4) /hpf Urine WBC >30 H (0-5) /hpf Ur Epithelial Cells >30 H (0-5) /lpf Urine Bacteria 1+ H (Negative) [place] 0.1 L (0.6-1.2) mmol/L Ethyl Alcohol mg/dL (<10.0) mg/dl Anaplasma Smear See Comment Babesia Smear See Comment Lyme Disease Screen (Negative) SARS-CoV-2 (PCR) NEGATIVE (Negative) Influenza Type A (PCR) Negative (Neg) Influenza Type B (PCR) Negative (Neg) RSV (RT-PCR) Negative (Neg) 11/26/23 11/26/23 Range/Units 17:58 17:59 WBC (4.8-10.8) K/ul RBC (4.20-5.40) M/uL Hgb (12.0-16.0) g/dl Hct (37.0-47.0) % MCV (80.0-100.0) fL MCH (25.0-34.0) pg MCHC (32.0-36.0) g/dL RDW Std Deviation (36.4-46.3) fL RDW Coeff of Donald (11.5-14.5) % Plt Count (130-400) K/uL MPV (9.4-12.4) fL Immature Gran % (Auto) % Neut % (Auto) % Lymph % (Auto) % [place] % (Auto) % Eos % (Auto) % Baso % (Auto) % Neut # (Auto) (1.40-6.50) K/uL Lymph # (Auto) (1.20-3.40) K/uL [place] # (Auto) (0.11-0.59) K/uL Eos # (Auto) (0.00-0.50) K/uL Baso # (Auto) (0.00-0.20) K/uL Immature Gran # (Auto) (0.01-0.20) K/uL PT INR APTT PTT Ratio VBG pH (7.36-7.41) VBG pCO2 (38-50) mmHg VBG pO2 mmHg VBG HCO3 mmol/L VBG O2 Saturation % VBG Base Excess mEq/L Sodium (136-145) mmol/L Potassium Chloride (98-107) mmol/L Carbon Dioxide (21-32) mmol/L Anion Gap (3-11) BUN (6-23) mg/dl Creatinine (0.6-1.2) mg/dl Est Cr Clr Drug Dosing ml/min Est GFR ( Amer) ml/min Est GFR (Non-Af Amer) ml/min BUN/Creatinine Ratio (10-20) Glucose (70-99(Fasting)) mg/dl Osmolality (280-300) mOsm/kg Lactate (0.4-2.0) mmol/L Calcium (8.6-10.3) mg/dl Magnesium (1.7-2.4) mg/dl Total Bilirubin (0.2-1.0) mg/dl Direct Bilirubin AST ALT (7-52) U/L Alkaline Phosphatase (34-104) U/L Troponin I High Sens (0-14) pg/ml Total Protein (6.0-8.3) gm/dl Albumin (3.4-5.0) gm/dl Globulin (2.5-4.0) gm/dl Albumin/Globulin Ratio (0.9-2) Lipase (11-82) U/L Procalcitonin (0-0.5) ng/ml Urine Color Urine Appearance (Clear) Urine pH (4.5-7.5) Ur Specific [place] (1.000-1.030) Urine Protein (Negative) Urine Glucose (UA) (Negative) Urine Ketones (Negative) Urine Blood (Negative) Urine Nitrite (Negative) Urine Bilirubin (Negative) Urine Urobilinogen (Negative) Ur Leukocyte Esterase (Negative) Urine RBC (0-4) /hpf Urine WBC (0-5) /hpf Ur Epithelial Cells (0-5) /lpf Urine Bacteria (Negative) [place] (0.6-1.2) mmol/L Ethyl Alcohol mg/dL < 10.0 (<10.0) mg/dl Anaplasma Smear Babesia Smear Lyme Disease Screen Negative (Negative) SARS-CoV-2 (PCR) (Negative) Influenza Type A (PCR) (Neg) Influenza Type B (PCR) (Neg) RSV (RT-PCR) (Neg) Imaging Data Attestation: I personally reviewed and interpreted this imaging study as follows: My Impression: Chest x-ray negative. Airway clear. No pneumothorax. No consolidation. No cardiomegaly or cephalization.. No free air under the diaphragm. No fractures of the skeletal structures. Radiologist's Impression: Chest X-Ray 11/26/23 14:43 XR chest 1V portable CLINICAL HISTORY: n/v TECHNIQUE: Single frontal radiograph of the chest was obtained. Comparison: Comparison is made to chest 04/14/2023 FINDINGS: No lines and tubes are seen. The cardiomediastinal silhouette is normal. The lungs are clear. No evidence of pleural effusion or pneumothorax. IMPRESSION: No acute chest disease. ACT 112: Negative or not required by law. Electronically signed by: Randy Yuen M.D. 11/26/2023 4:03 PM Abdomen/Pelvis CT 11/26/23 16:19 CT abd pelvis IV con only CLINICAL HISTORY: abd pain nv TECHNIQUE: Helical axial images of the abdomen and pelvis were obtained and displayed. Automated dose lowering techniques and/or adjustment according to patient size were utilized for this exam. This exam was performed with intravenous contrast. COMPARISON: None available at the time of this dictation. FINDINGS: Lower chest: For findings above the diaphragm, please see CT chest performed same day. Liver: Unremarkable. No focal lesions are seen. Gallbladder and biliary tree: Patient is status post cholecystectomy. No intra- or extrahepatic biliary ductal dilation. Pancreas: Unremarkable, no focal lesions. Spleen: Unremarkable. Adrenals: Unremarkable. Kidneys and ureters: Unremarkable. Bladder: Unremarkable. Reproductive organs: Patient is status post hysterectomy. Bowel: The appendix is normal. No evidence of bowel wall thickening. Again noted, there is irregular soft tissue thickening in the splenic tail with extensions to the gastric wall. Lymph nodes Retroperitoneal: Unremarkable. Pelvic: Unremarkable. Mesenteric: Unremarkable. Peritoneum: Normal. Vessels: Unremarkable. Abdominal wall: Unremarkable. Bones: Unremarkable. IMPRESSION: No acute abnormalities are seen. Redemonstration of soft tissue density in the left upper quadrant involving the pancreatic tail and stomach which may represent scarring from prior pancreatitis, similar to prior exam. ACT 112: Negative or not required by law. Electronically signed by: Randy Yuen M.D. 11/26/2023 6:[address] 11/26/23 16:19 CT head/brain wo con CLINICAL HISTORY: padilla Technique: Contiguous axial CT images of the head were acquired from the base of the skull to the vertex without intravenous contrast administration. Images were viewed in brain, subdural and bone windows. Automated dose lowering techniques and/or adjustment according to patient size were utilized for this exam. Comparison: Comparison is made to CT head 03/02/2022 Findings: The ventricles, basal cisterns, and cerebral sulci are normal. There is no acute intracranial hemorrhage or evidence of acute territorial infarction. Neither mass effect, shift of the midline structures, nor abnormal extra-axial fluid collections are shown. Opacification of the right maxillary sinus is seen. Ethmoid and sphenoid air cell opacification is also seen. The orbits appear normal. There are no acute fractures of the calvaria or scalp swelling. Impression: No acute intracranial hemorrhage, no evidence of acute territorial infarction or other acute intracranial disease process. ACT 112: Negative or not required by law. Electronically signed by: Randy Yuen M.D. 11/26/2023 6:08 PM Chest CTA 11/26/23 16:20 CT angio chest PE protocol CLINICAL HISTORY: ro PE TECHNIQUE: Multidetector row helical CT of the chest was performed with angiographic protocol. Coronal and sagittal reformations were obtained. Coronal and sagittal MIPS were obtained from the axial data set and were submitted for review. Automated dose lowering techniques and/or adjustment according to patient size were utilized for this exam. CT DOSE: 2657.2 mGy.cm Comparison: Comparison is made to CT chest to 11/26/2019 FINDINGS: Lungs and pleura: Bronchial wall thickening and tree-in-bud nodularity is in the right lower lobe. Heart and pericardium: Heart size is normal. No pericardial effusion. Vessels: No evidence of pulmonary embolism. Mediastinum and rl: Unremarkable. Chest wall and lower neck: Unremarkable. Abdomen: For findings below the diaphragm, please refer to CT of the abdomen dated the same. Bones: Degenerative changes in the thoracic spine. IMPRESSION: 1. No pulmonary embolus. 2. Infectious airways and airspace disease in the right lower lobe compatible with pneumonia. ACT 112: Negative or not required by law. Electronically signed by: Randy Yuen M.D. 11/26/2023 6:26 PM ECG Data Attestation: I personally reviewed and interpreted this ECG as follows: Indication: + abdominal pain and + SOB/dyspnea Rate (beats per minute): 90 Rhythm: + normal sinus ECG Intervals/blocks: + Normal QRS, + Normal [place] and + Normal QT-c ECG ST segments: + Normal ST segments [facility] Narrative 1604: The patient was evaluated in room B11. A complete history and physical exam was performed Cardiac monitoring: An order was placed for continuous cardiac monitoring. The monitor shows a rate of 110 with sinus tachcardia rhythm interpreted by me 1900: Nursing informed me that the patient is becoming hypoxic on room air. Labs show leukocytosis of 14.08. Coagulation studies within normal limits. Labs show a sodium of 125. Chloride of 92. Glucose 743. Serum osmolality 307. No anion gap. Osmolar gap is 10. Imaging shows no pulmonary embolus but does show infiltrate. Patient's corrected sodium with her hyperglycemia is 135. Patient be treated with IV antibiotics and [facility] given her hypoxia and pneumonia. Impression & Plan Hypoxia, Pneumonia, Hyperglycemia due to diabetes mellitus Discharge Plan Visit Data Chief Complaint: Illness Stated Complaint: RASH, VOMITING, WEAKNESS, REF BY DOC ED Provider: Ermias Dickerson Discharge Problem: Hypoxia, Pneumonia, Hyperglycemia due to diabetes mellitus Patient Disposition: Admitted As Inpatient Discharge Instructions Interventions: ED Discharge Assessment Last Done: 11/26/23 21:04
[2023-11-26 16:34] LABS: Glucose 743 mg/dl (70-99(Fasting))
[2023-11-26 16:45] LABS: Alanine Aminotransferase 21 U/L (7-52); Albumin Globulin Ratio 1.3 (0.9-2); Albumin Level 4.1 gm/dl (3.4-5.0); Alkaline Phosphatase 175 U/L (34-104); Anion Gap 9 (3-11); BUN Creatinine Ratio 16.2 (10-20); Bilirubin,Total 0.7 mg/dl (0.2-1.0); Blood Urea Nitrogen 16 mg/dl (6-23); Calcium 9.4 mg/dl (8.6-10.3); Carbon Dioxide 24 mmol/L (21-32); Chloride 92 mmol/L (98-107); Creatinine Clr Calc Pharmacy 54.7 ml/min; Est GFR (African American) 72.3 ml/min; Est GFR (Non-African American) 62.4 ml/min; Globulin 3.1 gm/dl (2.5-4.0); Lipase 65 U/L (11-82); Magnesium 2.4 mg/dl (1.7-2.4); Sodium 125 mmol/L (136-145); Total Protein 7.2 gm/dl (6.0-8.3); Troponin I High Sensitivity 7.9 pg/ml (0-14)
[2023-11-26] MEDS: ALBUT/IPRATROP 3MG/0.5MG NEB 3 ML VIAL NEB STA (16:56)
[2023-11-26 16:57] LABS: Base Excess VBG -0.6 mEq/L; HCO3 VBG 26 mmol/L; Oxygen Saturation VBG 77.6 %; PCO2 VBG 49 mmHg (38-50); PO2 VBG 46 mmHg; pH VBG 7.33 (7.36-7.41)
[2023-11-26 16:59] LABS: Appearance Urine Cloudy (Clear); Bilirubin Urine Negative (Negative); Blood Urine Trace-intact (Negative); Color Urine Yellow; Glucose Urine UA 3+ (Negative); Ketones Urine 1+ (Negative); Leukocyte Esterase Urine 1+ (Negative); Nitrite Urine Negative (Negative); Protein Urine Negative (Negative); Specific Gravity Urine <= 1.005 (1.000-1.030); Urobilinogen Urine Negative (Negative)
[2023-11-26 17:01] LABS: Bilirubin Direct 0.2 mg/dl (0-0.2); Potassium 4.7 mmol/L (3.5-5.1)
[2023-11-26 17:06] LABS: Bacteria Urine 1+ (Negative); Epithelial Cell Urine >30 /lpf (0-5); RBC Urine 0-4 /hpf (0-4); WBC Urine >30 /hpf (0-5)
[2023-11-26 17:22] LABS: INR 0.9 (0.9-1.1); Partial Thromboplastin Ratio 1.2; Partial Thromboplastin Time 34 Seconds (21-31); Prothrombin Time 10.4 Seconds (9.0-12.0)
[2023-11-26] MEDS: OPTIRAY 350 500ml IV ONE (17:44)
[2023-11-26 17:56] LABS: Influenza A virus by PCR Negative (Neg); Influenza B virus by PCR Negative (Neg); RSV by PCR Negative (Neg); SARS CoV2 RNA(COVID-19) Ceph NEGATIVE (Negative)
--- NOTE | 2023-11-26 18:09 | CT Scan Report ---
CT head/brain wo con CLINICAL HISTORY: padilla Technique: Contiguous axial CT images of the head were acquired from the base of the skull to the mckenzie mario without intravenous contrast administration. Images were viewed in brain, subdural and [facility]. Automated dose lowering techniques and/or adjustment according to patient size were utilized for this exam. Comparison: Comparison is made to CT head 03/02/2022 Findings: The ventricles, basal cisterns, and cerebral sulci are normal. There is no acute intracranial hemorrh age or evidence of acute territorial infarction. Neither mass effect, shift of the midline structures , nor abnormal extra-axial fluid collections are shown. Opacification of the right maxillary sinus is seen. Ethmoid and sphenoid air cell opacification is al so seen. The orbits appear normal. There are no acute fractures of the calvaria or scalp swelling. Impression: No acute intracranial hemorrhage, no evidence of acute territorial infarction or other acute intracra nial disease process. ACT 112: Negative or not required by law. Electronically signed by: Randy Yuen M.D. 11/26/2023 6:08 PM
--- NOTE | 2023-11-26 18:29 | CT Scan Report ---
CT angio chest PE protocol CLINICAL HISTORY: ro PE TECHNIQUE: Multidetector row helical CT of the chest was performed with angiographic protocol. Calderon l and sagittal reformations were obtained. Coronal and sagittal MIPS were obtained from the axial do a set and were submitted for review. Automated dose lowering techniques and/or adjustment according to patient size were utilized for this exam. CT DOSE: 2657.2 mGy.cm Comparison: Comparison is made to CT chest to 11/26/2019 FINDINGS: Lungs and pleura: Bronchial wall thickening and tree-in-bud nodularity is in the right lower lobe. Heart and pericardium: Heart size is normal. No pericardial effusion. Vessels: No evidence of pulmonary embolism. Mediastinum and rl: Unremarkable. Chest wall and lower neck: Unremarkable. Abdomen: For findings below the diaphragm, please refer to CT of the abdomen dated the same. Bones: Degenerative changes in the thoracic spine. IMPRESSION: 1. No pulmonary embolus. 2. Infectious airways and airspace disease in the right lower lobe compatible with pneumonia. ACT 112: Negative or not required by law. Electronically signed by: Randy Yuen M.D. 11/26/2023 6:26 PM
--- NOTE | 2023-11-26 18:42 | CT Scan Report ---
CT abd pelvis IV con only CLINICAL HISTORY: abd pain nv TECHNIQUE: Helical axial images of the abdomen and pelvis were obtained and displayed. Automated dose lowering techniques and/or adjustment according to patient size were utilized for this exam. This e xam was performed with intravenous contrast. COMPARISON: None available at the time of this dictation. FINDINGS: Lower chest: For findings above the diaphragm, please see CT chest performed same day. Liver: Unremarkable. No focal lesions are seen. Gallbladder and biliary tree: Patient is status post cholecystectomy. No intra- or extrahepatic bilia ry ductal dilation. Pancreas: Unremarkable, no focal lesions. Spleen: Unremarkable. Adrenals: Unremarkable. Kidneys and ureters: Unremarkable. Bladder: Unremarkable. Reproductive organs: Patient is status post hysterectomy. Bowel: The appendix is normal. No evidence of bowel wall thickening. Again noted, there is irregular soft tissue thickening in the splenic tail with extensions to the gastric wall. Lymph nodes Retroperitoneal: Unremarkable. Pelvic: Unremarkable. Mesenteric: Unremarkable. Peritoneum: Normal. Vessels: Unremarkable. Abdominal wall: Unremarkable. Bones: Unremarkable. IMPRESSION: No acute abnormalities are seen. Redemonstration of soft tissue density in the left upper quadrant in volving the pancreatic tail and stomach which may represent scarring from prior pancreatitis, similar to prior exam. ACT 112: Negative or not required by law. Electronically signed by: Randy Yuen M.D. 11/26/2023 6:39 PM
--- NOTE | 2023-11-26 20:13 | History & Physical Report ---
Date of Service November 26, 2023 Assessment & Plan (1) Generalized weakness: Plan: -Admit to the PCU on tele and pulse oximetry -Currently hemodynamically stable and stable on RA -Presented to the ED with multiple complaints including severe generalized weakness -Symptoms began while the patient was in [place] caring for her parents over the past 3 weeks, [place] on [place] -At this time her generalized weakness is likely multifactorial including her p neumonia, UTI, and recent travel, and dehydration -She is non-focal on neuro exam, CT of the head/brain wo con was negative for acute findings -Will continue treatment of her infections -S/P 500 mL NSS in the ED, will give her 1L LR bolus on admission and continue maintenance LR overnight with a max of 2 bags as she is very dry on exam -Follow blood cultures, urine cultures, tick borne panel -Fall/aspiration precautions -Clear liquid diet overnight until she is more alert and less of an aspiration risk -SQ lovenox for DVT PPX -AM CBC, CMP, mag, PT/INR, A1c (2) PNA (pneumonia): Plan: -CTA of the chest with PE protocol was negative for PE -Does show findings consistent with a RLL pneumonia -Currently stable on RA and in no respiratory distress -Was given a dose of Ceftriaxone in the ED -We will start Cefepime and Azithromycin for now with her recent travel -Will obtain MRSA swab -Will try and obtain sputum culture w/gram stain -Incentive spirometry, flutter therapy, QIDr DuoNebs -Will start BIDr Budesonide Nebs as well -PRN o2 to keep SpO2 between 89-92% (3) Urinary tract infection: Plan: -Patient has been experiencing increased urinary frequency and dysuria for the past 3 days -UA is consistent with UTI -Her suprapubic abd pain is likely due to UTI -Continue Cefepime for now -Follow urine/blood cultures (4) Hyperglycemia: Plan: -Patient was noted to be hyperglycemic on arrival with BSG in the 's -Repeat BSG on admission at 391, AG and bicarb are WNL -Patient has a hx of impaired fasting glucose; last Hgb A1c on 07/28/23 was 6.2 -No recent steroids since her 6 day taper at the end of October -Will repeat BMP, mag, and obtain ABG on admission for re-evaluation -Will start q4h BSG checks with CF of 50 and CR of 15 -Will continue IV fluid resuscitation -Monitor am Hgb A1c (5) Fall: Plan: -Reportedly had a fall while taking care of her Parents over in [place] -She does not remember the fall as she was very weak -Only trauma on exam is the bruising and skin tears over the right knee and white -CT of the head, CTA of the chest, and CT of the abd/pelvis were negative for trauma -Will obtain xrays of the right knee, and tight tib/fib for further evaluation -Fall precautions ordered (6) Rash: Plan: -Appears viral in nature -Not currently itching -Has been ongoing over the past month -Follow infectious workup -If not improving consider Dermatology consult (7) Abdominal pain: Plan: -Has been experiencing suprapubic tenderness -CT of the abd/pelvis w/IV con negative for acute findings -Lipase is WNL -Likely due to her UTI -Will start PRN tylenol now (8) COPD (chronic obstructive pulmonary disease): Plan: -Stable on RA -Does not appear to be in an exacerbation at this time, despite her Pneumonia -Rest of care per pneumonia plan (9) Hypothyroidism: Plan: -Will obtain TSH on admission -Continue levothyroxine (10) Bipolar disorder: Plan: -Has not had meds in the past 24 hours -Neihart level is subtherapeutic -Will resume Neihart, fluvoxamine, Lamictal, topamax (11) Hypertension: Plan: -Stable -Continue to monitor (12) Sleep apnea: Plan: -Does normally us HS CPAP -Will hold HS CPAP tonight with her weakness -Resume when more alert Plan The patient was discussed with Dr. Rodriguez at the time of the admission History of Present Illness Chief Complaint: Rash, abd pain, wheezing, recent travel Primary Care Provider: Rocky Long MD Mariah Valentine is 58 year old female with a PMH significant for COPD, hypothyroidism, bipolar disorder (on lithium), impaired fasting glucose, tremor, HTN, and gastritis who presented to the [facility] ED on 11/26/23 with multiple complaints including SOB/wheezing, abd pain and ongoing rash. She reported to the ED that she recently returned to the [place] after visiting family in [place]. She was noted to be tachycardic at 99 on arrival but was otherwise stable. She was noted to drop her SpO2 to 88% on RA while in the ED. Labs were significant for a leukocytosis of 14 with neutrophil predominance of 12, VBG pH of 7.33 with pCO2 of 49, and pO2 of 46, BSG of 743, corrected sodium of 135, UA with 3+ glucose, 1+ Ketones, 1+ leukocyte esterase, >30 WBC and epithelial cells, and 1+ bacteria, Influenza/RSV/Covid19 negative. CTA of the chest was read as "1. No pulmonary embolus. 2. Infectious airways and airspace disease in the right lower lobe compatible with pneumonia.". CT of the abd/pelvis w/IV con was read as "No acute abnormalities are seen. Redemonstration of soft tissue density in the left upper quadrant involving the pancreatic tail and stomach which may represent scarring from prior pancreatitis, similar to prior exam.". CT of the head/brain wo con was read as negative for acute findings. Prior to admission the patient was given 500 mL NSS, a dose of Ceftriaxone, and an albuterol nebuli zer. At the time of the exam the patient was lying in be and appears fatigued and generally ill; history was obtained from the patient and her at bedside. They state that the patient developed a rash on her shoulder and chest at the end of October. She was seen by her PCP and prescribed a 6 day prednisone taper for this, which she did complete. She states that she returned to the [place] from [place] yesterday; she was in [place] for the past 3 weeks as she is from [place] originally and was taking care of her parents. While over in [place] she developed a non-productive cough, wheezing, and generalized weakness. Her states that she reported had a fall at her parent's house because she was so weak. She has bruising over her right knee and white from the fall. The patient states that she does not remember the fall. When asked, she denies the rash currently itching. She has had fever and chills at home but did not take her temperature. She noted SOB, lower abdominal pain, and multiple episodes of non-bloody diarrhea. She did state that she has not had a bowel movement today. She has been too tired to take her home medications since returning yesterday. She denies recent insect bites, recent medication changes prior to her rash starting, changes in soap, detergent, or new foods. She is a full code and would want her to make medical decisions for her if she cannot make them herself. Please refer to Dr. Rodriguez's attestation for any changes to the treatment plan Allergies Allergy/AdvReac Type Severity Reaction Status Date / Time cat dander Allergy Intermediate FACIAL Verified 11/26/23 17:56 SWELLING AND RASH clarithromycin [From Biaxin] AdvReac Unknown contraindic Verified 11/26/23 17:56 ation levofloxacin AdvReac Unknown contraindication Verified 11/26/23 17:56 to med Home Medications Medication Instructions Recorded Confirmed Type ascorbic acid (vitamin C) 1,000 mg 1 g PO QAM 03/02/19 11/26/23 History tablet (Vitamin C) cholecalciferol (vitamin D3) 25 1,000 unit PO QAM 03/02/19 11/26/23 History mcg (1,000 unit) tablet (Vitamin D3) fluvoxamine 100 mg tablet 200 mg PO HS 03/02/19 11/26/23 History vitamin E 268 mg (400 unit) capsule 400 unit PO QAM 07/04/19 11/26/23 History lamotrigine 150 mg tablet 150 mg PO HS 07/24/21 11/26/23 History propranolol 10 mg tablet 5 mg PO BID PRN Tremor(S) 03/03/22 11/26/23 History lithium carbonate 300 mg capsule 300 mg PO HS 07/10/22 11/26/23 History levothyroxine 50 mcg tablet 50 mcg PO QAM #90 tabs 01/21/23 11/26/23 Rx (Synthroid) olanzapine 7.5 mg tablet 7.5 mg PO HS 03/05/23 11/26/23 History triamcinolone acetonide 0.1 % 1 applic dental BID #5 grams 03/05/23 11/26/23 Rx dental paste topiramate 50 mg tablet 50 mg PO HS #90 tabs 04/02/23 11/26/23 Rx umeclidinium 62.5 mcg-vilanterol 1 inh inhalation DAILY PRN asthma 04/09/23 11/26/23 Rx 25 mcg/actuation powdr for #14 ea inhalation (Anoro Ellipta) thiamine HCl (vitamin B1) 100 mg 100 mg PO QAM 06/20/23 11/26/23 History tablet ketorolac 10 mg tablet 10 mg PO TID PRN pain 5 days #15 08/04/23 11/26/23 Rx tabs rizatriptan 10 mg tablet 10 mg PO Q2H PRN migraine #10 tabs 08/04/23 11/26/23 Rx fluticasone propionate 50 2 spray intranasal DAILY #16 grams 09/09/23 11/26/23 Rx mcg/actuation nasal spray,suspension ipratropium bromide 21 mcg (0.03 2 spray intranasal TID PRN 09/09/23 11/26/23 Rx %) nasal spray postnasal drip #30 mL famotidine 40 mg tablet 40 mg PO BID #180 tabs 10/31/23 11/26/23 Rx prazosin 5 mg capsule 5 mg PO QPM 10/31/23 11/26/23 History ropinirole 2 mg tablet 2 mg PO DAILY 10/31/23 11/26/23 History albuterol sulfate 90 mcg/actuation 1 puff inhalation DIRECTED PRN 11/26/23 11/26/23 History aerosol inhaler Shortness Of Breath Or Wheezing esomeprazole magnesium 40 mg 40 mg PO QAM 11/26/23 11/26/23 History capsule,delayed release vitamin B complex 1 tab DAILY 11/26/23 11/26/23 History Past Med/Surg History Medical History (Updated 11/27/23 @ 16:35 by Rekha Mancilla MD) Uncontrolled diabetes mellitus with hyperglycemia Seasonal rhinitis Mild persistent asthma Dysphonia Chronic cough Dry mouth Vocal cord dysfunction Sleep apnea hx; tested 10/2022, no longer needs device Chronic pancreatitis Herpes simplex hx Internal hemorrhoids Weight loss unintentional in 2021-currently "holding at the same weight" Gastritis and duodenitis Bipolar 1 disorder, mixed Abnormal CT of the abdomen "muscle that's not working in her abdomen" Hypothyroidism Mild cardiomegaly pt unaware Acute kidney injury CHI (closed head injury) pt denies Migraine with aura and without status migrainosus, not intractable H/O: pneumonia 2021, no current symptoms History of colon polyps GERD (gastroesophageal reflux disease) Depression Anxiety Bipolar disorder Tremor Restless leg syndrome Asthma allergy induced-- inh prn Surgical History S/P excision of lipoma 2017 from arm Status post incision and drainage pancreatic pseudocyst 01/25/16 History of total hysterectomy with bilateral salpingo-oophorectomy (BSO) History of colonoscopy History of esophagogastroduodenoscopy (EGD) History of cholecystectomy History of tooth extraction all upper teeth History of wisdom tooth extraction Family History Mother Hypertension Diabetes Father Migraine Brother Multiple sclerosis Sister Migraine Other No family history of adverse response to anesthesia Denies family history of Ovarian cancer Prostate cancer Breast cancer Lung cancer Colorectal cancer Stroke Social History Smoking Status: Former smoker Tobacco Type: Cigarettes Second Hand Exposure: Yes (hx in the workplace); Do You Dip or Chew Tobacco: No; Hx Alcohol Use: No Hx Substance Use: No Preferred Language: Malaysian Communication Ability: Effective 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 Beliefs That Will Affect Care: None marital status: marital status details: spouse:Perez Valentine Current Living Situation: Spouse Current Living Situation Comment: Lives at home with Other Information That Helps Us Care for You: No Feels Safe at Home: Yes Safety Concerns: Feels Safe At This Time Assistive Devices: None Physical Exam Physical Exam: Physical Exam: General: In no acute distress, stated age, ill but non-toxic appearing HEENT: Normocephalic, atraumatic, no scleral icterus, pupils around round, symmetrical, and reactive to light, Dry mucus membranes, trachea midline, no thyromegaly Chest/Pulm: No respiratory distress, symmetrical chest expansion, scattered expiratory wheezing Cardiac: RRR, no murmurs noted Abdomen: Negative for ascites and bruising, normoactive bowel sounds, soft, tender to palpation in the suprapubic region, otherwise non-tender Musculoskeletal: Patient with bruising in various stages of healing and previous skin tears over the right knee and white, otherwise no acute trauma. N on-tender to palpation over the head, cervical/thoracic/lumbar spine, BL hips and LLE. Able to flex her BL knees and dorsiflex the BL ankles Extremities: Radial, dorsalis pedis, and posterior tibial pulses are intact and symmetrical, no edema noted in the BL LE's Skin: Patient with a diffuse, papular rash over her anterior/posterior trunk, upper and lower extremities, buttocks, and abdomen Neuro: Alert and oriented to person, place, month, year, no focal defects, baseline tremors noted Psych: fatigued but calm and cooperative during the exam Results & Data Results & Data Vital Signs (Past 12 Hours) Vital Signs Temp Pulse Pulse Resp BP BP Pulse Ox 11/26/23 19:00 88 L 11/26/23 18:12 97 11/26/23 18:01 87 L 11/26/23 18:00 78 20 118/67 87 L 11/26/23 16:11 82 20 135/87 92 11/26/23 14:39 36.6 C 90 18 144/87 H 97 O2 Del Method O2 Flow Rate 11/26/23 19:00 Room Air 11/26/23 18:12 Room Air 2 11/26/23 18:01 Nasal Cannula 0 11/26/23 18:00 Room Air 11/26/23 16:11 Room Air 11/26/23 14:39 Room Air Laboratory Results Abnormal lab results 11/26/23 11/26/23 11/26/23 Range/Units 15:16 16:13 16:25 WBC 14.08 H (4.8-10.8) K/ul RBC 3.95 L (4.20-5.40) M/uL Hgb 11.7 L (12.0-16.0) g/dl Hct 34.0 L (37.0-47.0) % Neut # (Auto) 12.13 H (1.40-6.50) K/uL Lymph # (Auto) 1.00 L (1.20-3.40) K/uL Platte # (Auto) 0.74 H (0.11-0.59) K/uL APTT 34 H (21-31) Seconds VBG pH 7.33 L (7.36-7.41) Sodium 125 L (136-145) mmol/L Chloride 92 L (98-107) mmol/L Glucose 743 H* (70-99(Fasting)) mg/dl POC Glucose (70-99) mg/dl Osmolality 307 H (280-300) mOsm/kg AST 8 L (13-39) U/L Alkaline Phosphatase 175 H (34-104) U/L Urine Appearance Cloudy A (Clear) Urine Glucose (UA) 3+ H (Negative) Urine Ketones 1+ H (Negative) Urine Blood Trace-intact H (Negative) Ur Leukocyte Esterase 1+ H (Negative) Urine WBC >30 H (0-5) /hpf Ur Epithelial Cells >30 H (0-5) /lpf Urine Bacteria 1+ H (Negative) Neihart 0.1 L (0.6-1.2) mmol/L 11/26/23 Range/Units 20:42 WBC (4.8-10.8) K/ul RBC (4.20-5.40) M/uL Hgb (12.0-16.0) g/dl Hct (37.0-47.0) % Neut # (Auto) (1.40-6.50) K/uL Lymph # (Auto) (1.20-3.40) K/uL Platte # (Auto) (0.11-0.59) K/uL APTT (21-31) Seconds VBG pH (7.36-7.41) Sodium (136-145) mmol/L Chloride (98-107) mmol/L Glucose (70-99(Fasting)) mg/dl POC Glucose 391 H* (70-99) mg/dl Osmolality (280-300) mOsm/kg AST (13-39) U/L Alkaline Phosphatase (34-104) U/L Urine Appearance (Clear) Urine Glucose (UA) (Negative) Urine Ketones (Negative) Urine Blood (Negative) Ur Leukocyte Esterase (Negative) Urine WBC (0-5) /hpf Ur Epithelial Cells (0-5) /lpf Urine Bacteria (Negative) Neihart (0.6-1.2) mmol/L Diagnostic Findings Chest X-Ray 11/26/23 14:43 XR chest 1V portable CLINICAL HISTORY: n/v TECHNIQUE: Single frontal radiograph of the chest was obtained. Comparison: Comparison is made to chest 04/14/2023 FINDINGS: No lines and tubes are seen. The cardiomediastinal silhouette is normal. The lungs are clear. No evidence of pleural effusion or pneumothorax. IMPRESSION: No acute chest disease. ACT 112: Negative or not required by law. Electronically signed by: Randy Yuen M.D. 11/26/2023 4:03 PM Abdomen/Pelvis CT 11/26/23 16:19 CT abd pelvis IV con only CLINICAL HISTORY: abd pain nv TECHNIQUE: Helical axial images of the abdomen and pelvis were obtained and displayed. Automated dose lowering techniques and/or adjustment according to patient size were utilized for this exam. This exam was performed with intravenous contrast. COMPARISON: None available at the time of this dictation. FINDINGS: Lower chest: For findings above the diaphragm, please see CT chest performed same day. Liver: Unremarkable. No focal lesions are seen. Gallbladder and biliary tree: Patient is status post cholecystectomy. No intra- or extrahepatic biliary ductal dilation. Pancreas: Unremarkable, no focal lesions. Spleen: Unremarkable. Adrenals: Unremarkable. Kidneys and ureters: Unremarkable. Bladder: Unremarkable. Reproductive organs: Patient is status post hysterectomy. Bowel: The appendix is normal. No evidence of bowel wall thickening. Again noted, there is irregular soft tissue thickening in the splenic tail with extensions to the gastric wall. Lymph nodes Retroperitoneal: Unremarkable. Pelvic: Unremarkable. Mesenteric: Unremarkable. Peritoneum: Normal. Vessels: Unremarkable. Abdominal wall: Unremarkable. Bones: Unremarkable. IMPRESSION: No acute abnormalities are seen. Redemonstration of soft tissue density in the left upper quadrant involving the pancreatic tail and stomach which may represent scarring from prior pancreatitis, similar to prior exam. ACT 112: Negative or not required by law. Electronically signed by: Randy Yuen M.D. 11/26/2023 6:[address] 11/26/23 16:19 CT head/brain wo con CLINICAL HISTORY: paidlla Technique: Contiguous axial CT images of the head were acquired from the base of the skull to the vertex without intravenous contrast administration. Images were viewed in brain, subdural and bone windows. Automated dose lowering techniques and/or adjustment according to patient size were utilized for this exam. Comparison: Comparison is made to CT head 03/02/2022 Findings: The ventricles, basal cisterns, and cerebral sulci are normal. There is no acute intracranial hemorrhage or evidence of acute territorial infarction. Neither mass effect, shift of the midline structures, nor abnormal extra-axial fluid collections are shown. Opacification of the right maxillary sinus is seen. Ethmoid and sphenoid air cell opacification is also seen. The orbits appear normal. There are no acute fractures of the calvaria or scalp swelling. Impression: No acute intracranial hemorrhage, no evidence of acute territorial infarction or other acute intracranial disease process. ACT 112: Negative or not required by law. Electronically signed by: Randy Yuen M.D. 11/26/2023 6:08 PM Chest CTA 11/26/23 16:20 CT angio chest PE protocol CLINICAL HISTORY: ro PE TECHNIQUE: Multidetector row helical CT of the chest was performed with angiographic protocol. Coronal and sagittal reformations were obtained. Coronal and sagittal MIPS were obtained from the axial data set and were submitted for review. Automated dose lowering techniques and/or adjustment according to patient size were utilized for this exam. CT DOSE: 2657.2 mGy.cm Comparison: Comparison is made to CT chest to 11/26/2019 FINDINGS: Lungs and pleura: Bronchial wall thickening and tree-in-bud nodularity is in the right lower lobe. Heart and pericardium: Heart size is normal. No pericardial effusion. Vessels: No evidence of pulmonary embolism. Mediastinum and rl: Unremarkable. Chest wall and lower neck: Unremarkable. Abdomen: For findings below the diaphragm, please refer to CT of the abdomen dated the same. Bones: Degenerative changes in the thoracic spine. IMPRESSION: 1. No pulmonary embolus. 2. Infectious airways and airspace disease in the right lower lobe compatible with pneumonia. ACT 112: Negative or not required by law. Electronically signed by: Randy Yuen M.D. 11/26/2023 6:26 PM ECG Additional Comments: Normal sinus rhythm Minimal voltage criteria for LVH, may be normal variant ( R in aVL ) Borderline ECG When compared with ECG of 02-MAR-2022 10:38, T wave amplitude has increased in Anterolateral leads Code Status & VTE Plan Code Status Full code VTE Prophylaxis Plan VTE Prophylaxis will be ordered: Yes Supervising Physician Co-Signing Physician Notes Attending addendum: I have physically seen this patient, have supervised the AILIN's activities, and agree with the H&P unless as otherwise noted. Assessment and Plan: Infectious disease/urinary tract infection/right lower lobe pneumonia Treat as noted below Right lower lobe pneumonia- As noted on CTA chest, which was negative for PE Received a single dose of ceftriaxone from the ED Placed on cefepime 2 g IV every 12 hours, and azithromycin 500 mg IV daily due to potential exposures with recent travel to [place] MRSA swab Duonebs every 4 hours while awake and every 2 hours when necessary. Pulmicort Respules 0.5 mg inhaled twice daily Nasal cannula oxygen, titrate to keep pulse ox 92-94% Urinary tract infection- Follow urine culture and sensitivity Antibiotics as above Hyperglycemia- Glucose 743 initially, with follow-up 391 after IV fluids Likely secondary to recent prednisone 6-day course Placed on Accu-Cheks with NovoLog SSI as noted Continue IV fluids as noted Check hemoglobin A1c Remaining orders and notations as noted PG Care Time/CCT Total # of Minutes Spent Total Time Spent with Patient: Total time spent is greater than 50% in coordination of care (as documented) at patient's floor/unit and/or counseling patient: Coding [place] [address] INT INP/OBS CARE 3/75MIN Patient Type Established Medical Decision Making High Complexity Diagnoses Generalized weakness R53.1 PNA (pneumonia) J18.9 Urinary tract infection N39.0 Hyperglycemia R73.9 Fall W19.XXXA Rash R21 Abdominal pain R10.9 COPD (chronic obstructive pulmonary disease) J44.9 Hypothyroidism E03.9 Bipolar disorder F31.9 Hypertension I10 Sleep apnea G47.30
[2023-11-26] MEDS: cefTRIAXone SODIUM 2,000 MG/50 ML BAG IV STA (20:20)
[2023-11-26] MEDS: PANTOprazole 40 MG in SYRINGE 0 ML IV ONE (20:37)
[2023-11-26] MEDS: FAMOTIDINE 20MG IV PUSH 20 MG/5 ML SYR IV STA ×2 (20:38→23:56)
[2023-11-26] MEDS ORDERED: GLUCOSE 40% GEL 15 GM TUBE PO PRN (20:52)
[2023-11-26] MEDS ORDERED: CARBOHYDRATES FOR HYPOGLYCEMIA PO PRN (20:52)
[2023-11-26] MEDS ORDERED: DEXTROSE 50% 50 ML SYRINGE IV PRN (20:52)
[2023-11-26] MEDS ORDERED: GLUCAGON FOR INJ 1 MG VIAL SQ PRN (20:52)
[2023-11-26] MEDS ORDERED: GLUCOSE 10 TAB/TUBE PO PRN (20:52)
[2023-11-26] MEDS: AZITHROMYCIN 250 MG TAB PO ONE (21:01)
[2023-11-26 21:22] LABS: Base Excess ABG 1.1 mEq/L (-9-1.8); HCO3 ABG 25 mmol/L (19-24); Oxygen Saturation ABG 96.1 % (90-95); PCO2 ABG 37 mmHg (35-46); PO2 ABG 71 mmHg (80-95); pH ABG 7.44 (7.35-7.45)
[2023-11-26 21:23] LABS: Allen Test Pos (Pos)
[2023-11-26] MEDS: INSULIN ASPART PER UNIT CHARGE SC SCH (21:24)
[2023-11-26] MEDS: CEFEPIME 2,000 MG in SYRINGE 0 ML IV ONE (21:26)
[2023-11-26] MEDS ORDERED: PROPRANOLOL HCL 10 MG TAB PO PRN (21:50)
[2023-11-26] MEDS: LACTATED RINGER'S 1,000 ML IV ONE (21:55)
[2023-11-26] MEDS: AZITHROMYCIN 500 MG in DEXTROSE 5% 250 ML IV STA (21:58)
[2023-11-26] MEDS: TOPIRAMATE 50 MG TAB PO SCH (22:26)
[2023-11-26] MEDS: PRAZOSIN HCL 1 MG CAP PO SCH (22:27)
[2023-11-26] MEDS: lamoTRIgine 100 MG TAB PO SCH (22:27)
[2023-11-26] MEDS: fluvoxaMINE MALEATE 50 MG TAB PO SCH (22:28)
[2023-11-26] MEDS: LITHIUM CARBONATE 300 MG TAB PO SCH (22:28)
[2023-11-26] MEDS: ENOXAPARIN INJ 40 MG/0.4 ML SYR SQ SCH (22:28)
[2023-11-26 22:34] LABS: Thyroid Stimulating Hormone 0.453 uIu/ml (0.300-4.500)
[2023-11-26] MEDS: ALBUT/IPRATROP 3MG/0.5MG NEB 3 ML VIAL NEB SCH (22:46)
[2023-11-26 22:48] LABS: Calcium 8.8 mg/dl (8.6-10.3); Magnesium 2.1 mg/dl (1.7-2.4); Potassium 4.5 mmol/L (3.5-5.1)
[2023-11-26 22:55] LABS: BUN Creatinine Ratio 18.9 (10-20); Creatinine Clr Calc Pharmacy 72.8 ml/min; Est GFR (African American) 102.8 ml/min; Est GFR (Non-African American) 88.7 ml/min
[2023-11-26] MEDS: LACTATED RINGER'S 1,000 ML IV SCH (22:59)
[2023-11-26] MEDS ORDERED: ALUMINUM/MAGNESIUM SUSP 30 ML UDC PO PRN (23:14)
[2023-11-27] MEDS: ACETAMINOPHEN 1,000 MG/100 ML VIAL IV STA (00:01)
--- NOTE | 2023-11-27 07:17 | XRay Report ---
RIGHT TIBIA AND FIBULA 2 VIEWS CLINICAL HISTORY: Fall with right leg injury. FINDINGS: AP and lateral views of the right tibia and fibula are correlated with radiographs of the r ight knee dated 04/19/2015. The skeletal structures are osteopenic. There is no radiographic evidence of right tibial or fibular fracture. The knee and ankle joints are grossly maintained. There is mild soft tissue swelling overlying the tibial tuberosity. IMPRESSION: No acute bony abnormality is identified. Electronically signed by: Delta Evans M.D. 11/27/2023 7:16 AM
[2023-11-27 07:19] LABS: Allen Test Pos (Pos); HCO3 ABG 26 mmol/L (19-24); Oxygen Saturation ABG 93.9 % (90-95); PCO2 ABG 42 mmHg (35-46); PO2 ABG 62 mmHg (80-95)
[2023-11-27] MEDS: BUDESONIDE 0.5 MG/2 ML VIAL (PULMICORT) NEB SCH (07:31)
[2023-11-27 07:33] LABS: Basophils # (auto) 0.03 K/uL (0.00-0.20); Basophils % (auto) 0.4 %; Eosinophils # (auto) 0.08 K/uL (0.00-0.50); Eosinophils % (auto) 1.1 %; Hematocrit (blood only) 27.1 % (37.0-47.0); Hemoglobin 9.1 g/dl (12.0-16.0); Immature Granulocytes # (auto) 0.02 K/uL (0.01-0.20); Immature Granulocytes % (auto) 0.3 %; Lymphocytes # (auto) 1.98 K/uL (1.20-3.40); Lymphocytes % (auto) 27.3 %; Mean Corpuscular Hemoglobin 29.6 pg (25.0-34.0); Mean Corpuscular Hgb Conc 33.6 g/dL (32.0-36.0); Mean Corpuscular Volume 88.3 fL (80.0-100.0); Mean Platelet Volume 10.5 fL (9.4-12.4); Monocytes # (auto) 0.51 K/uL (0.11-0.59); Neutrophils # (auto) 4.63 K/uL (1.40-6.50); Neutrophils % (auto) 63.9 %; Platelet Count 131 K/uL (130-400); RDW Coefficient of Variation 14.5 % (11.5-14.5); RDW Standard Deviation 46.5 fL (36.4-46.3); Red Blood Count 3.07 M/uL (4.20-5.40); White Blood Count 7.25 K/ul (4.8-10.8)
[2023-11-27 08:02] LABS: Estimated Average Glucose 292 mg/dl; Hemoglobin A1C 11.8 % (4.5-5.6)
[2023-11-27 08:04] LABS: Prothrombin Time 10.6 Seconds (9.0-12.0)
--- NOTE | 2023-11-27 08:20 | XRay Report ---
XR knee RT 1 or 2V routine CLINICAL HISTORY: fall, right knee pain COMPARISON: Right knee radiographs April 19, 2015. FINDINGS: Alignment of the right knee is anatomic. There is no fracture. There is a moderate size juli int effusion. Soft tissue swelling anterior to the tibial tubercle is noted. There is moderate patell ofemoral compartment osteoarthritis. IMPRESSION: 1. No acute fractures within the right knee. 2. Moderate size right knee joint effusion. 3. Moderate patellofemoral compartment osteoarthritis. 4. Soft tissue swelling anterior to the tibial tubercle. ACT 112: Negative or not required by law. Electronically signed by: Otto Hill M.D. 11/27/2023 8:18 AM
[2023-11-27] MEDS: ACETAMINOPHEN 325 MG TAB PO PRN (08:50)
[2023-11-27] MEDS: LEVOTHYROXINE SODIUM 50 MCG TABLET PO SCH (08:51)
[2023-11-27] MEDS: rOPINIRole HCL 2 MG TABLET PO SCH (08:52)
[2023-11-27] MEDS: PANTOprazole 40 MG TAB PO SCH (08:52)
[2023-11-27] MEDS: FAMOTIDINE 40 MG TABLET PO SCH (08:53)
[2023-11-27] MEDS ORDERED: INFLUENZA VIRUS QUADRIVALENT VACCINE (IIV4) 0.5 ML SYR IM ONE (09:00)
--- NOTE | 2023-11-27 09:26 | Electrocardiogram Report ---
Test Reason : Blood Pressure : / mmHG Vent. Rate : 090 BPM Atrial Rate : 090 BPM P-R Int : 154 ms QRS Dur : 084 ms QT Int : 344 ms P-R-T Axes : 059 011 062 degrees QTc Int : 420 ms Normal sinus rhythm Normal ECG When compared with ECG of 02-MAR-2022 10:38, Vent. rate has increased BY 35 BPM Nonspecific T wave abnormality no longer evident in Inferior leads T wave amplitude has increased in Anterolateral leads Confirmed by Eric Hill ([id number]) on 11/27/2023 9:26:45 AM Referred By: REFERRED SELF Confirmed By:Mannie Hill
[2023-11-27] MEDS: NYSTATIN SUSP 500,000 U/5 ML UDC PO SCH (10:55)
[2023-11-27] MEDS: CEFEPIME 2,000 MG in SYRINGE 0 ML IV SCH (10:57)
[2023-11-27] MEDS ORDERED: Nursing to Pharmacy Communication SCH (11:00)
[2023-11-27 11:34] LABS: Albumin Globulin Ratio 1.4 (0.9-2); Albumin Level 3.2 gm/dl (3.4-5.0); BUN Creatinine Ratio 12.8 (10-20); Bilirubin,Total 0.3 mg/dl (0.2-1.0); Calcium 8.3 mg/dl (8.6-10.3); Est GFR (African American) 96.4 ml/min; Est GFR (Non-African American) 83.2 ml/min; Globulin 2.3 gm/dl (2.5-4.0); Potassium 3.6 mmol/L (3.5-5.1); Total Protein 5.5 gm/dl (6.0-8.3)
[2023-11-27] MEDS: INSULIN ASPART PER UNIT CHARGE SC SCH (12:52)
--- NOTE | 2023-11-27 16:46 | Hospitalist Progress Note ---
Date of Service November 27, 2023 Assessment & Plan (1) PNA (pneumonia): Plan: -CTA of the chest with PE protocol was negative for PE but there is R basilar consolidation consistent with pneumonia -continue antibiotics for CAP: azithromycin 500 mg IV daily x 3 doses and ceftriaxone IV for now, 5-7 days total course (2) Uncontrolled diabetes mellitus with hyperglycemia: Plan: Presented with volume depletion and severe hyperglycemia BG 700. No prior history of diabetes. Recently on prednisone for rash (last dose a week ago) IV fluids given in ED, BG improved but in 200s throughout today. A1c 12% consistent with new diagnosis type 2 diabetes. Has hx chronic pancreatitis but was not in DKA on presentation, consistent with type 2 -will need insulins to get under control, eventually may transition to combination of glargine and non-insulin agents as outpatient -calculated weight-based basal-bolus insulin -NPH 10 units x 1 now -aspart premeal/correctional adjusted to CF 35 and CR 11 -glargine 20 units qAM -consult certified adapted physical educator Oral thrush and pain with swallowing - related to hyperglycemia and recent prednisone -nystatin s/s. consider fluconazole if not improving promptly Translational hyponatremia on presentation - Na 125 with severe hyperglycemia -Na normal today after correction of BG and IV fluids (3) Generalized weakness: Plan: Related to dehyration, pneumonia, UTI, hyperglycemia Head CT negative in ED Observe for improvement, may need PT/OT eval (4) Urinary tract infection: Plan: -Patient has been experiencing increased urinary frequency and dysuria for the past 3 days with SP pain -UA is consistent with UTI, GPC on prelim urine culture - await S/S (5) Fall: Plan: -Reportedly had a fall while taking care of her Parents over in [place] -She does not remember the fall as she was very weak -Only trauma on exam is the bruising and skin tears over the right knee and white -CT of the head, CTA of the chest, and CT of the abd/pelvis were negative for trauma -xrays of the right knee with effusion, and tight tib/fib negative for fracture -Fall precautions ordered (6) Rash: Plan: -Appears viral in nature and appears to be fading/resolving -ddx would be a psoriatic or eczematous eruption -monitor (7) Abdominal pain: Plan: -CT of the abd/pelvis w/IV con negative for acute findings -Lipase is WNL -Likely due to her UTI (8) COPD (chronic obstructive pulmonary disease): Plan: -Stable on RA -Does not appear to be in an exacerbation at this time, despite her Pneumonia -continue bronchodilators (9) Hypothyroidism: Plan: TSH wnl -Continue levothyroxine (10) Bipolar disorder: Plan: -Has not had meds in the past 24 hours -[place] level is subtherapeutic -Will resume [place], fluvoxamine, Lamictal, topamax (11) Hypertension: Plan: -Stable -Continue to monitor (12) Sleep apnea: Plan: -Does normally us HS CPAP - ordered Admission and Anticipated Discharge Date Admission Date: November 26, 2023 Subjective Continues to feel weak and tired +cough, not short of breath, throat pain and pain with swallowing 2-3 days had rash few weeks ago, had rx for prednisone, resolving. was "red bumps" not vesicular/pustular and did not itch or hurt. denies viral URI symptoms at that time Physical Exam 2 Physical Exam: PHYSICAL EXAMINATION Last 24h vital signs reviewed, see documentation in flowsheet General: comfortable appearing, no distress, looks tired/weak HEENT: Normocephalic, atraumatic, pupils round and equal, sclerae anicteric, no conjunctival injection, moist mucus membranes can't see posterior tongue but some whitish patches posterior oropharynx Lungs: Normal respiratory effort. Clear to auscultation bilaterally except diminished R base. No RRW Heart: Regular rate and rhythm, no murmurs. No JVD Abdomen: Soft, nontender, nondistended. Bowel sounds present. Extremities: Warm, dry, well-perfused. No extremity edema. Skin: fading rash on arms, legs, trunk. Lesions crusted or scaly almost psoriatic appearing. Neuro: Alert and oriented x 4, face symmetric, moves 4 extremities well Psych: Normal affect and behavior Results & Data Results & Data Vital Signs (Past 12 Hours) Vital Signs Temp Pulse Pulse Resp BP BP Pulse Ox 11/27/23 15:12 94 H 16 98 11/27/23 15:00 36.7 C 89 18 138/75 99 11/27/23 11:22 36.8 C 84 18 107/65 93 11/27/23 07:34 82 15 95 11/27/23 07:28 36.8 C 66 17 97/66 L 94 O2 Del Method FiO2 11/27/23 15:12 Room Air 11/27/23 15:00 Room Air 11/27/23 11:22 Room Air 11/27/23 07:34 Room Air 11/27/23 07:28 Room Air Laboratory Results 11/27/23 06:55 11/27/23 06:55 PG Care Time/CCT Total # of Minutes Spent Total Time Spent with Patient: Total time spent is greater than 50% in coordination of care (as documented) at patient's floor/unit and/or counseling patient: Coding Level of Care Code 15197 SUB INP/OBS CARE 3/50MIN Diagnoses PNA (pneumonia) J18.9 Uncontrolled diabetes mellitus with hyperglycemia E11.65 Generalized weakness R53.1 Urinary tract infection N39.0 Fall W19.XXXA Rash R21 Abdominal pain R10.9 COPD (chronic obstructive pulmonary disease) J44.9 Hypothyroidism E03.9 Bipolar disorder F31.9 Hypertension I10 Sleep apnea G47.30
[2023-11-27] MEDS: cefTRIAXone SODIUM 2,000 MG in DEXTROSE 5 % MINI-B 50 ML IV SCH (17:57)
[2023-11-27] MEDS: NovoLIN-N (NPH) PER UNIT CHARGE SC ONE (18:01)
[2023-11-27] MEDS ORDERED: CHLORASEPTIC (PHENOL) 1.4% SOLN 180 ML BTL MT PRN (19:53)
[2023-11-27] MEDS: KETOROLAC TROMETHAMINE 15 MG/ML VIAL IV ONE (20:26)
[2023-11-27] MEDS: ONDANSETRON INJ 2 MG/ML 2 ML VIAL IV STA (20:26)
[2023-11-27] MEDS: FLUTICASONE PROPIONATE NA SPR 16 GM BTL SCH (20:27)
[2023-11-27] MEDS: guaiFENesin 600 MG TABCR PO SCH (20:27)
[2023-11-27] MEDS: BENZONATATE 100 MG CAPSULE PO SCH (20:27)
[2023-11-27] MEDS: AZITHROMYCIN 500 MG in DEXTROSE 5% 250 ML IV SCH (20:32)
[2023-11-27] MEDS: PROCHLORPERAZINE 5 MG in SYRINGE 4 ML IV ONE (22:05)
[2023-11-27] MEDS: INSULIN ASPART PER UNIT CHARGE SC STA (23:07)
[2023-11-27 23:32] LABS: BUN Creatinine Ratio 7.8 (10-20); Calcium 8.3 mg/dl (8.6-10.3); Creatinine Clr Calc Pharmacy 46.8 ml/min; Est GFR (African American) 60.3 ml/min; Potassium 3.3 mmol/L (3.5-5.1)
[2023-11-28] MEDS: POTASSIUM CHLORIDE CRTAB 20 MEQ TABCR PO STA (01:00)
[2023-11-28 06:29] LABS: Basophils # (auto) 0.02 K/uL (0.00-0.20); Basophils % (auto) 0.4 %; Eosinophils # (auto) 0.09 K/uL (0.00-0.50); Eosinophils % (auto) 1.7 %; Hematocrit (blood only) 27.7 % (37.0-47.0); Hemoglobin 8.9 g/dl (12.0-16.0); Immature Granulocytes # (auto) 0.04 K/uL (0.01-0.20); Immature Granulocytes % (auto) 0.8 %; Lymphocytes # (auto) 1.54 K/uL (1.20-3.40); Lymphocytes % (auto) 29.7 %; Mean Corpuscular Hemoglobin 28.9 pg (25.0-34.0); Mean Corpuscular Hgb Conc 32.1 g/dL (32.0-36.0); Mean Corpuscular Volume 89.9 fL (80.0-100.0); Mean Platelet Volume 11.2 fL (9.4-12.4); Monocytes # (auto) 0.33 K/uL (0.11-0.59); Monocytes % (auto) 6.4 %; Neutrophils # (auto) 3.17 K/uL (1.40-6.50); Platelet Count 124 K/uL (130-400); RDW Coefficient of Variation 14.2 % (11.5-14.5); RDW Standard Deviation 46.2 fL (36.4-46.3); Red Blood Count 3.08 M/uL (4.20-5.40); White Blood Count 5.19 K/ul (4.8-10.8)
[2023-11-28 06:51] LABS: INR 0.9 (0.9-1.1); Prothrombin Time 10.3 Seconds (9.0-12.0)
[2023-11-28 06:56] LABS: Albumin Globulin Ratio 1.3 (0.9-2); Albumin Level 3.1 gm/dl (3.4-5.0); BUN Creatinine Ratio 9.8 (10-20); Bilirubin,Total 0.3 mg/dl (0.2-1.0); Calcium 8.6 mg/dl (8.6-10.3); Est GFR (Non-African American) 68.2 ml/min; Globulin 2.4 gm/dl (2.5-4.0); Potassium 3.9 mmol/L (3.5-5.1); Total Protein 5.5 gm/dl (6.0-8.3)
[2023-11-28] MEDS: LACTATED RINGER'S 1,000 ML IV ONE (07:58)
[2023-11-28] MEDS: LANTUS PER UNIT CHARGE SQ SCH (08:09)
--- NOTE | 2023-11-28 15:51 | Hospitalist Progress Note ---
Date of Service November 28, 2023 Assessment & Plan (1) PNA (pneumonia): Plan: -CTA of the chest with PE protocol was negative for PE but there is R basilar consolidation consistent with pneumonia -continue antibiotics for CAP: azithromycin 500 mg IV daily x 3 doses and ceftriaxone IV for now, 5-7 days total course -not hypoxic, remains severely hyperglycemic -stop budesonide nebs (2) Uncontrolled diabetes mellitus with hyperglycemia: Plan: Presented with volume depletion and severe hyperglycemia BG 700. No prior history of diabetes. Recently on prednisone for rash (last dose a week ago) IV fluids given in ED, BG improved but in 200s throughout today. A1c 12% consistent with new diagnosis type 2 diabetes. Has hx chronic pancreatitis but was not in DKA on presentation, consistent with type 2 -AM BG acceptable around 200 but midday went up to 400, adjusted insulins discussed with pharmacist and peer educator -will need insulins to get under control, eventually may transition to combination of glargine and non-insulin agents as outpatient -aspart premeal/correctional adjusted to high stress dose -inc glargine 22 units qAM Oral thrush and pain with swallowing - related to hyperglycemia and recent prednisone -nystatin s/s. improved today. consider fluconazole if not improving promptly Translational hyponatremia on presentation - Na 125 with severe hyperglycemia -Na normal after correction of BG and IV fluids (3) Generalized weakness: Plan: Related to dehyration, pneumonia, UTI, hyperglycemia Head CT negative in ED -improved, now independent in room. 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 -UA is consistent with UTI, MSSA on urine culture -ceftriaxone not well studied for serious staph infections but should be ok coverage for UTI (5) Fall: Plan: -Reportedly had a fall while taking care of her Parents over in [place] -She does not remember the fall as she was very weak -Only trauma on exam is the bruising and skin tears over the right knee and white -CT of the head, CTA of the chest, and CT of the abd/pelvis were negative for trauma -xrays of the right knee with effusion, and tight tib/fib negative for fracture (6) Rash: Plan: -Appears viral in nature and appears to be fading/resolving -ddx would be a psoriatic or eczematous eruption -monitor, no progression (7) Abdominal pain: Plan: -CT of the abd/pelvis w/IV con negative for acute findings -Lipase is WNL -Likely due to her UTI, also has hx gastroaresis and pancreatitis -improved/resolved (8) COPD (chronic obstructive pulmonary disease): Plan: -Stable on RA -Does not appear to be in an exacerbation at this time, despite her Pneumonia -continue bronchodilators PRN, stop budesonide because of severe hyperglycemia and not wheezing (9) Hypothyroidism: Plan: TSH wnl -Continue levothyroxine (10) Bipolar disorder: Plan: -cont [place], fluvoxamine, Lamictal, topamax (11) Hypertension: Plan: -Stable -Continue to monitor (12) Sleep apnea: Plan: -Does normally us HS CPAP - ordered Plan ordered initial diabetic supplies for discharge, insulin pen, needles, lancets, strips, discussed with DM educator Admission and Anticipated Discharge Date Admission Date: November 26, 2023 Subjective feels much better, weakness improved has been up in room walking to bathroom, nausea and abdominal pain resolved. chest wall and still feels tender. BUILDING SERVICES ENGINEER cough. throat pain improved Physical Exam 2 Physical Exam: PHYSICAL EXAMINATION Last 24h vital signs reviewed, see documentation in flowsheet General: comfortable appearing, no distress, looks stronger and more alert today HEENT: Normocephalic, atraumatic, pupils round and equal, sclerae anicteric, no conjunctival injection, moist mucus membranes slight whitish patches posterior oropharynx - improved Lungs: Normal respiratory effort. Clear to auscultation bilaterally except slight crackle and diminished R base. No wheezing Heart: Regular rate and rhythm, no murmurs. No JVD Abdomen: Soft, nontender, nondistended. Bowel sounds present. Extremities: Warm, dry, well-perfused. No extremity edema. Skin: fading rash on arms, legs, trunk. Lesions crusted or scaly almost psoriatic appearing. No new lesions. Neuro: Alert and oriented x 4, face symmetric, moves 4 extremities well Psych: Normal affect and behavior Results & Data Results & Data Vital Signs (Past 12 Hours) Vital Signs Temp Pulse Pulse Resp BP Pulse Ox O2 Del Method 11/28/23 14:40 88 11/28/23 11:00 36.8 C 91 H 20 125/62 93 Room Air 11/28/23 08:00 76 11/28/23 08:00 Room Air 11/28/23 08:00 36.7 C 83 18 101/69 97 Room Air 11/28/23 07:17 92 H 22 96 Room Air Laboratory Results 11/28/23 05:45 11/28/23 05:45 PG Care Time/CCT Total # of Minutes Spent Total Time Spent with Patient: I personally spent: 50 minutes today on clinical care activities including: reviewing chart notes and vital signs reviewing labs, microbiology discussion with clinical pharmacist, visual educator examining and counseling the patient Ordering discharge medications, checking formulary writing orders documentation Coding Level of Care Code 93907 SUB INP/OBS CARE 3/50MIN Diagnoses PNA (pneumonia) J18.9 Uncontrolled diabetes mellitus with hyperglycemia E11.65 Generalized weakness R53.1 Urinary tract infection N39.0 Fall W19.XXXA Rash R21 Abdominal pain R10.9 COPD (chronic obstructive pulmonary disease) J44.9 Hypothyroidism E03.9 Bipolar disorder F31.9 Hypertension I10 Sleep apnea G47.30
[2023-11-28] MEDS ORDERED: metFORMIN HCL ER 500 MG TABCR PO SCH (16:30)
[2023-11-29 07:08] LABS: Basophils # (auto) 0.02 K/uL (0.00-0.20); Basophils % (auto) 0.4 %; Eosinophils # (auto) 0.09 K/uL (0.00-0.50); Eosinophils % (auto) 1.9 %; Hematocrit (blood only) 30.4 % (37.0-47.0); Hemoglobin 9.4 g/dl (12.0-16.0); Immature Granulocytes # (auto) 0.09 K/uL (0.01-0.20); Immature Granulocytes % (auto) 1.9 %; Lymphocytes # (auto) 1.53 K/uL (1.20-3.40); Mean Corpuscular Hemoglobin 28.7 pg (25.0-34.0); Mean Corpuscular Hgb Conc 30.9 g/dL (32.0-36.0); Mean Corpuscular Volume 92.7 fL (80.0-100.0); Mean Platelet Volume 10.8 fL (9.4-12.4); Monocytes # (auto) 0.27 K/uL (0.11-0.59); Monocytes % (auto) 5.6 %; Neutrophils # (auto) 2.78 K/uL (1.40-6.50); Neutrophils % (auto) 58.2 %; Platelet Count 135 K/uL (130-400); RDW Coefficient of Variation 14.4 % (11.5-14.5); RDW Standard Deviation 48.9 fL (36.4-46.3); Red Blood Count 3.28 M/uL (4.20-5.40); White Blood Count 4.78 K/ul (4.8-10.8)
[2023-11-29 07:28] LABS: Albumin Globulin Ratio 1.3 (0.9-2); Albumin Level 3.5 gm/dl (3.4-5.0); BUN Creatinine Ratio 7.8 (10-20); Bilirubin,Total 0.3 mg/dl (0.2-1.0); Creatinine Clr Calc Pharmacy 60.9 ml/min; Est GFR (African American) 81.1 ml/min; Globulin 2.6 gm/dl (2.5-4.0); Magnesium 1.9 mg/dl (1.7-2.4); Potassium 4.1 mmol/L (3.5-5.1); Total Protein 6.1 gm/dl (6.0-8.3)
[2023-11-29 07:38] LABS: INR 0.9 (0.9-1.1); Prothrombin Time 9.9 Seconds (9.0-12.0)
[2023-11-29] MEDS: metFORMIN HCL ER 500 MG TABCR PO SCH (08:23)
[2023-11-29] MEDS: LANTUS PER UNIT CHARGE SQ SCH (08:24)
--- NOTE | 2023-11-29 14:07 | Hospitalist Progress Note ---
Date of Service November 29, 2023 Assessment & Plan (1) PNA (pneumonia): Plan: -CTA of the chest with PE protocol was negative for PE but there is R basilar consolidation consistent with pneumonia -continue antibiotics for CAP: treated with azithromycin 500 mg IV daily x 3 doses and ceftriaxone IV, 5-7 days total course -not hypoxic -stop budesonide nebs (2) Uncontrolled diabetes mellitus with hyperglycemia: Plan: Presented with volume depletion and severe hyperglycemia BG 700, elevated serum Osm. Diabetes type 2 with hyperosmolar state without NKHCC present on admission, treated with IV fluids and IV insulin, resolved. No prior history of diabetes. Recently on prednisone for rash (last dose a week ago) IV fluids given in ED, BG improved but in 200s throughout today. A1c 12% consistent with new diagnosis type 2 diabetes. Has hx chronic pancreatitis but was not in DKA on presentation, consistent with type 2 -AM BG acceptable around 200 but midday went up to 400, adjusted insulins discussed with pharmacist and family living educator -will need insulins to get under control, eventually may transition to combination of glargine and non-insulin agents as outpatient -aspart premeal/correctional adjusted to high stress dose 11/27 -cont glargine 22 units qAM -metformin 500 mg XR started this AM -continues to need 9u, 9u aspart today maintaining BG in 200s Oral thrush and pain with swallowing - related to hyperglycemia and recent prednisone -nystatin s/s. improved. (3) Generalized weakness: Plan: Related to dehyration, pneumonia, UTI, hyperglycemia Head CT negative in ED -resolved, now independent in room. 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 No eye pain or redness. Potentially related to diabetic retinopathy or retinal detachment? Followed by [facility] - needs opthalmologic exam as soon as possible (6) Rash: Plan: -Appears viral in nature and appears to be fading/resolving -ddx would be a psoriatic or eczematous eruption -monitor, no progression (7) Abdominal pain: Plan: -CT of the abd/pelvis w/IV con negative for acute findings -Lipase is WNL -Likely due to her UTI, also has hx gastroaresis and pancreatitis -improved/resolved (8) Fall: Plan: -Reportedly had a fall while taking care of her Parents over in [place] -She does not remember the fall as she was very weak -Only trauma on exam is the bruising and skin tears over the right knee and white -CT of the head, CTA of the chest, and CT of the abd/pelvis were negative for trauma -xrays of the right knee with effusion, and tight tib/fib negative for fracture (9) COPD (chronic obstructive pulmonary disease): Plan: -Stable on RA, no wheezing -Does not appear to be in an exacerbation at this time, despite her Pneumonia -continue bronchodilators PRN (10) Hypothyroidism: Plan: TSH wnl -Continue levothyroxine (11) Bipolar disorder: Plan: -cont [place], fluvoxamine, Lamictal, topamax (12) Hypertension: Plan: -Stable -Continue to monitor (13) Sleep apnea: Plan: -Does normally us HS CPAP - ordered Plan Acute metabolic encephalopathy - present on admission, was initially confused and hallucinating when presented to ED - treated with IV fluids, antibiotics and insulin and resolved Mild thrombocytopenia related to infection, resolved plt 135 today Anemia Translational hyponatremia on presentation - Na 125 with severe hyperglycemia. Na corrects to 135-140 when adjusted for BG 740 at the time. 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 No eye pain or redness. Rash Physical Exam 2 Physical Exam: PHYSICAL EXAMINATION Last 24h vital signs reviewed, see documentation in flowsheet General: appears much more well, walking in hallway HEENT: Normocephalic, atraumatic, pupils round and equal, sclerae anicteric, no conjunctival injection, moist mucus membranes Lungs: Normal respiratory effort. R basilar crackles improved air mvt to R base. No wheezing Heart: Regular rate and rhythm, no murmurs. No JVD Abdomen: Soft, nontender, nondistended. Bowel sounds present. Extremities: Warm, dry, well-perfused. No extremity edema. Skin: fading rash on arms, legs, trunk. Red maculopapular on upper back, upper arms and thighs, Some lesions crusted or scaly almost psoriatic appearing. No new lesions. Neuro: Alert and oriented x 4, face symmetric, moves 4 extremities well Psych: Normal affect and behavior Results & Data Results & Data Vital Signs (Past 12 Hours) Vital Signs Temp Pulse Pulse Pulse Resp BP Pulse Ox 11/29/23 11:55 36.6 C 102 H 17 123/75 94 11/29/23 11:19 18 L 18 95 11/29/23 08:00 75 11/29/23 08:00 11/29/23 07:52 36.6 C 86 18 112/73 95 11/29/23 07:07 86 19 98 11/29/23 04:15 36.4 C L 103 H 18 102/62 97 O2 Del Method 11/29/23 11:55 Room Air 11/29/23 11:19 Room Air 11/29/23 08:00 11/29/23 08:00 Room Air 11/29/23 07:52 Room Air 11/29/23 07:07 Room Air 11/29/23 04:15 Room Air Laboratory Results 11/29/23 06:52 11/29/23 06:52 PG Care Time/CCT Total # of Minutes Spent Total Time Spent with Patient: Total time spent is greater than 50% in coordination of care (as documented) at patient's floor/unit and/or counseling patient: Coding Level of Care Code 81310 SUB INP/OBS CARE 2/35MIN Diagnoses PNA (pneumonia) J18.9 Uncontrolled diabetes mellitus with hyperglycemia E11.65 Generalized weakness R53.1 Urinary tract infection N39.0 Vision disturbance H53.9 Rash R21 Abdominal pain R10.9 Fall W19.XXXA COPD (chronic obstructive pulmonary disease) J44.9 Hypothyroidism E03.9 Bipolar disorder F31.9 Hypertension I10 Sleep apnea G47.30
[2023-11-29] MEDS: LACTATED RINGER'S 1,000 ML IV ONE (15:23)
[2023-11-29] MEDS: PROCHLORPERAZINE 5 MG in SYRINGE 4 ML IV PRN (15:23)
[2023-11-30 06:17] LABS: Babesia microti DNA Not Detected (Not Detected)
--- NOTE | 2023-11-30 07:48 | Hospitalist Progress Note ---
Date of Service November 30, 2023 Assessment & Plan (1) PNA (pneumonia): Plan: -CTA of the chest with PE protocol was negative for PE but there is R basilar consolidation consistent with pneumonia -not hypoxic -sputum cx was neg -continue antibiotics for CAP: treated with azithromycin 500 mg IV daily x 3 doses and ceftriaxone IV, 5-7 days total course (2) Uncontrolled diabetes mellitus with hyperglycemia: Plan: Presented with volume depletion and severe hyperglycemia BG 700, elevated serum Osm. Diabetes type 2 with hyperosmolar state without NKHCC present on admission, treated with IV fluids and IV insulin, resolved. No prior history of diabetes. Recently on prednisone for rash (last dose a week ago) IV fluids given in ED, BG improved but in 200s throughout today. A1c 12% consistent with new diagnosis type 2 diabetes. Has hx chronic pancreatitis but was not in DKA on presentation, consistent with type 2 -will need insulins to get under control, eventually may transition to combination of glargine and non-insulin agents as outpatient -aspart premeal/correctional adjusted to high stress dose 11/27, decreased to medium stress 11/28. [place] aspart 0-9 units last 24h. BGs in 200-260 range with one 88 yesterday afternoon -cont glargine 22 units qAM -metformin 500 mg XR started AM 11/28 -BG improved today 200s-160. DM educator met with her 11/29 again Oral thrush and pain with swallowing - related to hyperglycemia and recent prednisone -nystatin s/s. improved. (3) Generalized weakness: Plan: Related to dehyration, pneumonia, UTI, hyperglycemia Head CT negative in ED -resolved, now independent in room. 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 No eye pain or redness. Potentially related to diabetic retinopathy or retinal detachment? Is a small spot but disturbs her reading. Followed by [facility] - needs opthalmologic exam as soon as possible (6) Rash: Plan: -Appears viral in nature and appears to be fading/resolving -ddx would be a psoriatic or eczematous eruption -monitor, no progression (7) Abdominal pain: Plan: -CT of the abd/pelvis w/IV con negative for acute findings -Lipase is WNL -Likely due to her UTI, also has hx gastroparesis and pancreatitis -resolved (8) Fall: Plan: -Reportedly had a fall while taking care of her Parents over in [place] -She does not remember the fall as she was very weak -Only trauma on exam is the bruising and skin tears over the right knee and white -CT of the head, CTA of the chest, and CT of the abd/pelvis were negative for trauma -xrays of the right knee with effusion, and tight tib/fib negative for fracture (9) COPD (chronic obstructive pulmonary disease): Plan: -Stable on RA, no wheezing -Does not appear to be in an exacerbation at this time, despite her Pneumonia -continue bronchodilators PRN (10) Hypothyroidism: Plan: TSH wnl -Continue levothyroxine (11) Bipolar disorder: Plan: -cont [place], fluvoxamine, Lamictal, topamax (12) Hypertension: Plan: -Stable -Continue to monitor (13) Sleep apnea: Plan: -Does normally us HS CPAP - ordered Plan Acute metabolic encephalopathy - present on admission, was initially confused and hallucinating when presented to ED - treated with IV fluids, antibiotics and insulin and resolved Mild thrombocytopenia related to infection, resolved plt 135 today Anemia - needs outpatient follow up Translational hyponatremia on presentation - Na 125 with severe hyperglycemia. Na corrects to 135-140 when adjusted for BG 740 at the time. -Na normal after correction of BG and IV fluids 11/27 - ordered initial diabetic supplies for discharge, insulin pen, needles, lancets, strips 11/29 updated her at bedside Admission and Anticipated Discharge Date Admission Date: November 26, 2023 Physical Exam 2 Physical Exam: PHYSICAL EXAMINATION Last 24h vital signs reviewed, see documentation in flowsheet General: appears much more well, walking in hallway HEENT: Normocephalic, atraumatic, pupils round and equal, sclerae anicteric, no conjunctival injection, moist mucus membranes Lungs: Normal respiratory effort. R basilar crackles improved air mvt to R base. No wheezing Heart: Regular rate and rhythm, no murmurs. No JVD Abdomen: Soft, nontender, nondistended. Bowel sounds present. Extremities: Warm, dry, well-perfused. No extremity edema. Skin: fading rash on arms, legs, trunk. Red maculopapular on upper back, upper arms and thighs, Some lesions crusted or scaly almost psoriatic appearing. No new lesions. Neuro: Alert and oriented x 4, face symmetric, moves 4 extremities well Psych: Normal affect and behavior Results & Data Results & Data Vital Signs (Past 12 Hours) Vital Signs Temp Pulse Pulse Resp BP Pulse Ox O2 Del Method 11/30/23 07:37 36.4 C L 82 18 129/77 96 Room Air 11/30/23 07:23 86 15 95 Room Air 11/30/23 03:00 36.5 C 85 18 96/61 L 96 Room Air 11/30/23 00:06 84 11/29/23 23:40 16 96 11/29/23 23:00 36.4 C L 92 H 21 115/73 97 Room Air 11/29/23 20:10 Room Air 11/29/23 19:46 36.7 C 85 18 144/81 H 96 Room Air Laboratory Results 11/29/23 06:52 11/29/23 06:52 PG Care Time/CCT Total # of Minutes Spent Total Time Spent with Patient: Total time spent is greater than 50% in coordination of care (as documented) at patient's floor/unit and/or counseling patient: Coding Level of Care Code 24746 SUB INP/OBS CARE 2/35MIN Diagnoses PNA (pneumonia) J18.9 Uncontrolled diabetes mellitus with hyperglycemia E11.65 Generalized weakness R53.1 Urinary tract infection N39.0 Vision disturbance H53.9 Rash R21 Abdominal pain R10.9 Fall W19.XXXA COPD (chronic obstructive pulmonary disease) J44.9 Hypothyroidism E03.9 Bipolar disorder F31.9 Hypertension I10 Sleep apnea G47.30
[2023-11-30] MEDS ORDERED: ALBUT/IPRATROP 3MG/0.5MG NEB 3 ML VIAL NEB PRN (07:49)
[2023-11-30] MEDS: PROPRANOLOL HCL 10 MG TAB PO SCH (09:34)
[2023-11-30] MEDS: POLYETHYLENE (MIRALAX) 17 GM PACK PO PRN (20:23)
--- NOTE | 2023-12-01 14:24 | Discharge Summary ---
Date of Service December 01, 2023 Admission HPI Per Admitting Provider Mariah Valentine is 58 year old female with a PMH significant for COPD, hypothyroidism, bipolar disorder (on lithium), impaired fasting glucose, tremor, HTN, and gastritis who presented to the [facility] ED on 11/26/23 with multiple complaints including SOB/wheezing, abd pain and ongoing rash. She reported to the ED that she recently returned to the [place] after visiting family in [place]. She was noted to be tachycardic at 99 on arrival but was otherwise stable. She was noted to drop her SpO2 to 88% on RA while in the ED. Labs were significant for a leukocytosis of 14 with neutrophil predominance of 12, VBG pH of 7.33 with pCO2 of 49, and pO2 of 46, BSG of 743, corrected sodium of 135, UA with 3+ glucose, 1+ Ketones, 1+ leukocyte esterase, >30 WBC and epithelial cells, and 1+ bacteria, Influenza/RSV/Covid19 negative. CTA of the chest was read as "1. No pulmonary embolus. 2. Infectious airways and airspace disease in the right lower lobe compatible with pneumonia.". CT of the abd/pelvis w/IV con was read as "No acute abnormalities are seen. Redemonstration of soft tissue density in the left upper quadrant involving the pancreatic tail and stomach which may represent scarring from prior pancreatitis, similar to prior exam.". CT of the head/brain wo con was read as negative for acute findings. Prior to admission the patient was given 500 mL NSS, a dose of Ceftriaxone, and an albuterol nebulizer. At the time of the exam the patient was lying in be and appears fatigued and generally ill; history was obtained from the patient and her at bedside. They state that the patient developed a rash on her shoulder and chest at the end of October. She was seen by her PCP and prescribed a 6 day prednisone taper for this, which she did complete. She states that she returned to the [place] from [place] yesterday; she was in [place] for the past 3 weeks as she is from [place] originally and was taking care of her parents. While over in [place] she developed a non-productive cough, wheezing, and generalized weakness. Her states that she reported had a fall at her parent's house because she was so weak. She has bruising over her right knee and white from the fall. The patient states that she does not remember the fall. When asked, she denies the rash currently itching. She has had fever and chills at home but did not take her temperature. She noted SOB, lower abdominal pain, and multiple episodes of non-bloody diarrhea. She did state that she has not had a bowel movement today. She has been too tired to take her home medications since returning yesterday. She denies recent insect bites, recent medication changes prior to her rash starting, changes in soap, detergent, or new foods. She is a full code and would want her to make medical decisions for her if she cannot make them herself. Principal Diagnosis Uncontrolled diabetes type 2 with hyperosmolar state without NKHCC, right lower lobe pneumonia, UTI, acute metabolic encephalopathy Discharge Exam PHYSICAL EXAMINATION Last 24h vital signs reviewed, see documentation in flowsheet General: appears much more well, walking in hallway and seen in room HEENT: Normocephalic, atraumatic, pupils round and equal, sclerae anicteric, no conjunctival injection, moist mucus membranes Lungs: Normal respiratory effort. R basilar crackles improved air mvt to R base. No wheezing - unchanged Heart: Regular rate and rhythm, no murmurs. No JVD Abdomen: Soft, nontender, nondistended. Bowel sounds present. Extremities: Warm, dry, well-perfused. No extremity edema. Skin: fading rash on arms, legs, trunk. Red maculopapular on upper back, upper arms and thighs, has flattened out and darkened and with scale/sloughing Neuro: Alert and oriented x 4, face symmetric, moves 4 extremities well Psych: Normal affect and behavior Discharge Data Allergies Allergy/AdvReac Type Severity Reaction Status Date / Time cat dander Allergy Intermediate FACIAL Verified 11/26/23 17:56 SWELLING AND RASH clarithromycin [From Biaxin] AdvReac Unknown contraindic Verified 11/26/23 17:56 ation levofloxacin AdvReac Unknown contraindication Verified 11/26/23 17:56 to med Consultations 11/26/23 19:52 ED Decision to Admit Stat Ordered Studies 11/26/23 16:19 CT abd pelvis IV con only Stat CT head/brain wo con Stat 11/26/23 16:20 CT angio chest PE protocol Stat Chest X-Ray 11/26/23 14:43 XR chest 1V portable CLINICAL HISTORY: n/v TECHNIQUE: Single frontal radiograph of the chest was obtained. Comparison: Comparison is made to chest 04/14/2023 FINDINGS: No lines and tubes are seen. The cardiomediastinal silhouette is normal. The lungs are clear. No evidence of pleural effusion or pneumothorax. IMPRESSION: No acute chest disease. ACT 112: Negative or not required by law. Electronically signed by: Randy Yuen M.D. 11/26/2023 4:03 PM Abdomen/Pelvis CT 11/26/23 16:19 CT abd pelvis IV con only CLINICAL HISTORY: abd pain nv TECHNIQUE: Helical axial images of the abdomen and pelvis were obtained and displayed. Automated dose lowering techniques and/or adjustment according to patient size were utilized for this exam. This exam was performed with intravenous contrast. COMPARISON: None available at the time of this dictation. FINDINGS: Lower chest: For findings above the diaphragm, please see CT chest performed same day. Liver: Unremarkable. No focal lesions are seen. Gallbladder and biliary tree: Patient is status post cholecystectomy. No intra- or extrahepatic biliary ductal dilation. Pancreas: Unremarkable, no focal lesions. Spleen: Unremarkable. Adrenals: Unremarkable. Kidneys and ureters: Unremarkable. Bladder: Unremarkable. Reproductive organs: Patient is status post hysterectomy. Bowel: The appendix is normal. No evidence of bowel wall thickening. Again noted, there is irregular soft tissue thickening in the splenic tail with extensions to the gastric wall. Lymph nodes Retroperitoneal: Unremarkable. Pelvic: Unremarkable. Mesenteric: Unremarkable. Peritoneum: Normal. Vessels: Unremarkable. Abdominal wall: Unremarkable. Bones: Unremarkable. IMPRESSION: No acute abnormalities are seen. Redemonstration of soft tissue density in the left upper quadrant involving the pancreatic tail and stomach which may represent scarring from prior pancreatitis, similar to prior exam. ACT 112: Negative or not required by law. Electronically signed by: Randy Yuen M.D. 11/26/2023 6:[address] 11/26/23 16:19 CT head/brain wo con CLINICAL HISTORY: padilla Technique: Contiguous axial CT images of the head were acquired from the base of the skull to the vertex without intravenous contrast administration. Images were viewed in brain, subdural and bone windows. Automated dose lowering techniques and/or adjustment according to patient size were utilized for this exam. Comparison: Comparison is made to CT head 03/02/2022 Findings: The ventricles, basal cisterns, and cerebral sulci are normal. There is no acute intracranial hemorrhage or evidence of acute territorial infarction. Neither mass effect, shift of the midline structures, nor abnormal extra-axial fluid collections are shown. Opacification of the right maxillary sinus is seen. Ethmoid and sphenoid air cell opacification is also seen. The orbits appear normal. There are no acute fractures of the calvaria or scalp swelling. Impression: No acute intracranial hemorrhage, no evidence of acute territorial infarction or other acute intracranial disease process. ACT 112: Negative or not required by law. Electronically signed by: Randy Yuen M.D. 11/26/2023 6:08 PM Chest CTA 11/26/23 16:20 CT angio chest PE protocol CLINICAL HISTORY: ro PE TECHNIQUE: Multidetector row helical CT of the chest was performed with angiographic protocol. Coronal and sagittal reformations were obtained. Coronal and sagittal MIPS were obtained from the axial data set and were submitted for review. Automated dose lowering techniques and/or adjustment according to patient size were utilized for this exam. CT DOSE: 2657.2 mGy.cm Comparison: Comparison is made to CT chest to 11/26/2019 FINDINGS: Lungs and pleura: Bronchial wall thickening and tree-in-bud nodularity is in the right lower lobe. Heart and pericardium: Heart size is normal. No pericardial effusion. Vessels: No evidence of pulmonary embolism. Mediastinum and rl: Unremarkable. Chest wall and lower neck: Unremarkable. Abdomen: For findings below the diaphragm, please refer to CT of the abdomen dated the same. Bones: Degenerative changes in the thoracic spine. IMPRESSION: 1. No pulmonary embolus. 2. Infectious airways and airspace disease in the right lower lobe compatible with pneumonia. ACT 112: Negative or not required by law. Electronically signed by: Randy Yuen M.D. 11/26/2023 6:26 PM Knee X-Ray 11/26/23 20:54 XR knee RT 1 or 2V routine CLINICAL HISTORY: fall, right knee pain COMPARISON: Right knee radiographs April 19, 2015. FINDINGS: Alignment of the right knee is anatomic. There is no fracture. There is a moderate size joint effusion. Soft tissue swelling anterior to the tibial tubercle is noted. There is moderate patellofemoral compartment osteoarthritis. IMPRESSION: 1. No acute fractures within the right knee. 2. Moderate size right knee joint effusion. 3. Moderate patellofemoral compartment osteoarthritis. 4. Soft tissue swelling anterior to the tibial tubercle. ACT 112: Negative or not required by law. Electronically signed by: Otto Hill M.D. 11/27/2023 8:18 AM Tibia/Fibula X-Ray 11/26/23 20:54 RIGHT TIBIA AND FIBULA 2 VIEWS CLINICAL HISTORY: Fall with right leg injury. FINDINGS: AP and lateral views of the right tibia and fibula are correlated with radiographs of the right knee dated 04/19/2015. The skeletal structures are osteopenic. There is no radiographic evidence of right tibial or fibular fracture. The knee and ankle joints are grossly maintained. There is mild soft tissue swelling overlying the tibial tuberosity. IMPRESSION: No acute bony abnormality is identified. Electronically signed by: Delta Evans M.D. 11/27/2023 7:16 AM 11/29/23 06:52 11/29/23 06:52 Hospital Course (1) Uncontrolled diabetes mellitus with hyperglycemia: 58 y/o with bipolar disorder, had been visiting family in [place] for three weeks prior to admission, developed cough, weakness, recently on oral steroids for rash. Presented in ED with severe hyperglycemia BG in 700s, weak and with confusion, hallucination Presented with volume depletion and severe hyperglycemia BG 700, elevated serum Osm. Diabetes type 2 with hyperosmolar state without NKHCC present on admission, treated with IV fluids and IV insulin, resolved. No prior history of diabetes. Recently on prednisone for rash (last dose a week prior to admission) IV fluids given in ED, BG improved. A1c 12% consistent with new diagnosis type 2 diabetes. Has hx chronic pancreatitis but was not in DKA on presentation, consistent with type 2 -treated with glargine and premeal insulin in hospital, as infections treated BG came under improved control -hospital educator met with her several times in hospital -cont glargine 22 units qAM -metformin 750 mg XR -has primary care follow up 12/03 Oral thrush and pain with swallowing - related to hyperglycemia and recent prednisone -nystatin s/s. much improved. (2) PNA (pneumonia): -CTA of the chest with PE protocol was negative for PE but there is R basilar consolidation consistent with pneumonia -not hypoxic -sputum cx was neg -continue antibiotics for CAP: treated with azithromycin 500 mg IV daily x 3 doses and ceftriaxone IV for four days, changed to augmentin on discharge which will cover staph UTI better (3) Urinary tract infection: -Patient had been experiencing increased urinary frequency and dysuria for the past 3 days [employer]IST with SP pain -UA is consistent with UTI, MSSA on urine culture -ceftriaxone not well studied for serious staph infections but should be ok coverage for UTI, changed to augmentin for discharge -symptoms resolved (4) Generalized weakness: Related to dehyration, pneumonia, UTI, hyperglycemia Head CT negative in ED -resolved, now independent in room. usually walks 3 mi, 5d a week (5) Vision disturbance: 11/28 reported green/yellowish defect in her central vision of L eye since few days prior to return from [place] (3-4 weeks), unchanging, baseline has poor vision in R eye. No eye pain or redness. Potentially related to diabetic retinopathy or retinal detachment? Is a small spot but disturbs her reading. Followed by [facility] - needs opthalmologic exam as soon as possible - she is instructed to call to schedule today and we are working on facilitating close follow up (6) Rash: -Appeared to be viral in nature initially treated with course of oral steroids outpatient and appears to be fading/resolving -ddx would be a psoriatic or eczematous eruption -monitor, lesions on upper arms and thighs more flat and evolving with some sloughing today. Does not appear consistent with drug rash or vasculitic rash -advised emolient / eczema formulation -primary care follow up (7) Abdominal pain: -CT of the abd/pelvis w/IV con negative for acute findings -Lipase is WNL -Likely due to her UTI, also has hx gastroparesis and pancreatitis -resolved, eating well (8) Fall: -Reportedly had a fall while taking care of her Parents over in [place] -She does not remember the fall as she was very weak -Only trauma on exam is the bruising and skin tears over the right knee and white -CT of the head, CTA of the chest, and CT of the abd/pelvis were negative for trauma -xrays of the right knee with effusion, and tight tib/fib negative for fracture (9) COPD (chronic obstructive pulmonary disease): -Stable on RA, no wheezing -Does not appear to be in an exacerbation at this time, despite her Pneumonia (10) Hypothyroidism: TSH wnl -Continue levothyroxine (11) Bipolar disorder: -cont [place], fluvoxamine, Lamictal, topamax (12) Hypertension: -Stable -Continue to monitor (13) Sleep apnea: HS CPAP Plan Acute metabolic encephalopathy - present on admission, was initially confused and hallucinating when presented to ED - treated with IV fluids, antibiotics and insulin and resolved Mild thrombocytopenia related to infection, resolved Anemia - needs outpatient follow up Translational hyponatremia on presentation - Na 125 with severe hyperglycemia. Na corrects to 135-140 when adjusted for BG 740 at the time. -Na normal after correction of BG and IV fluids Total Time Total Time Spent Total Time Spent (In Minutes): I personally spent: 35 minutes today on clinical care activities including: reviewing chart notes and vital signs, micro, blood glucose discussion with hospital educator, care coordination examining and counseling the patient writing orders, prescriptions, discharge instructions documentation Discharge Plan Discharge Items Patient Disposition: Home - Self-Care Reason For Visit: PNEUMONIA, HYPERGLYCEMIA, HYPOXIA, RASH Discharge Diagnosis: pneumonia, UTI, new onset DM type 2 with severe hyperglycemia, acute metabolic encephalopathy Activity: Resume your previous activity Non-emergency contact: Primary Care Provider Call non-emergency contact if: you have any medication questions and your symptoms worsen Follow-up/Referrals: Rocky Long MD [Primary Care Provider] - 12/04/23 4:00 pm Addtl Attending Provider Instructions: You were treated with antibiotics for pneumonia and urinary tract infection -complete the course of oral antibiotics -nystatin for thrush (yeast infection) in your mouth/throat You were confused and severely dehydrated because of infection and severely elevated blood sugar You were diagnosed with new onset type 2 diabetes. Based on your blood tests this has been going on at least several months. Rash - try eczema cream that has colloidal oatmeal (aveeno, eucerin, cerave etc) Keep groin and skin folds under breasts dry - you can use antifungal powder if you have redness/rash in these areas Diabetes recommendations: Semglee (glargine) insulin in AM Metformin in AM Check blood sugar twice a day - one fasting check and one another time Call your doctor if blood sugar >200 for three days or and blood sugar <80 Eliminate sugar-sweetened drinks (aarti jimmy), avoid sugar, moderate carb / balanced meals Follow up by telephone 2-3 days after discharge Follow up appointment with Dr. Long scheduled 12/03 It is very important to have an eye exam as soon as possible, ideally this week, to evaluate the colored spot in your vision. It could be a diabetes related complication, a small hemorrhage, or a tear in retina. Please let them know you were newly diagnosed with diabetes as any prescriptions you may need now may be improved in a few months once blood sugar levels have been in a reasonably safe range. Pending Studies at Discharge: No Stand-Alone Forms: [facility], Smoking Cessation Medications and DC Order Prescriptions: New insulin glargine-yfgn [Semglee(insulin glarg-yfgn)Pen] 100 unit/mL (3 mL) insulin pen 22 unit subcut QAM Qty: 15 0RF (DME) pen needle, diabetic [BD Ultra-Fine Lorri Pen Needle] 32 gauge x 5/32" needle See Rx Instructions .Route Qty: 100 0RF Rx Instructions: As directed (DME) OneTouch Verio test strips Strip See Rx Instructions .Route Qty: 100 0RF Rx Instructions: As directed (DME) lancets [OneTouch Delica Plus Lancet] 33 gauge misc See Rx Instructions .Route Qty: 100 0RF Rx Instructions: As directed nystatin 100,000 unit/mL Suspension 5 ml PO TID Qty: 60 0RF metformin 750 mg tablet extended release 24 hr 750 mg PO DAILY Qty: 30 0RF benzonatate 100 mg Capsule 100 mg PO TID PRN (Reason: cough) Qty: 20 0RF guaifenesin [Mucinex] 600 mg Tablet Extended Release 12hr 600 mg PO Q12 PRN (Reason: congestion) Qty: 0 0RF Rx Instructions: buy over the counter amoxicillin-pot clavulanate 875-125 mg tablet 1 tab PO BID Qty: 6 0RF (DME) lancets [OneTouch Delica Plus Lancet] 33 gauge misc See Rx Instructions .Route Qty: 100 0RF Rx Instructions: check blood sugar 3 times a day Continued levothyroxine [Synthroid] 50 mcg tablet 50 mcg PO QAM Qty: 90 3RF topiramate 50 mg tablet 50 mg PO HS Qty: 90 1RF fluticasone propionate 50 mcg/actuation spray,suspension 2 spray intranasal DAILY Qty: 16 11RF Rx Instructions: administer into each nostril ipratropium bromide 21 mcg (0.03 %) spray,non-aerosol 2 spray intranasal TID PRN (Reason: postnasal drip) Qty: 30 11RF Rx Instructions: administer into each nostril Anoro Ellipta 62.5-25 mcg/actuation blister with device 1 inh inhalation DAILY PRN (Reason: asthma) Qty: 14 2RF rizatriptan 10 mg tablet 10 mg PO Q2H PRN (Reason: migraine) Qty: 10 11RF ketorolac 10 mg tablet 10 mg PO TID PRN (Reason: pain) 5 Days Qty: 15 2RF olanzapine 7.5 mg tablet 7.5 mg PO HS triamcinolone acetonide 0.1 % paste 1 applic dental BID Qty: 5 2RF Rx Instructions: use after food and/or drink and/or oral hygiene ropinirole 2 mg tablet 2 mg PO DAILY prazosin 5 mg capsule 5 mg PO QPM famotidine 40 mg tablet 40 mg PO BID Qty: 180 3RF esomeprazole magnesium 40 mg capsule,delayed release(DR/EC) 40 mg PO QAM ascorbic acid (vitamin C) [Vitamin C] 1,000 mg Tablet 1 g PO QAM fluvoxamine 100 mg Tablet 200 mg PO HS cholecalciferol (vitamin D3) [Vitamin D3] 1,000 unit Tablet 1,000 unit PO QAM lithium carbonate 300 mg capsule 300 mg PO HS vitamin E 400 unit Capsule 400 unit PO QAM propranolol 10 mg tablet 5 mg PO BID PRN (Reason: Tremor(S)) thiamine HCl (vitamin B1) 100 mg tablet 100 mg PO QAM lamotrigine 150 mg tablet 150 mg PO HS vitamin B complex Tablet 1 tab DAILY albuterol sulfate 90 mcg/actuation Hfa Aerosol Inhaler 1 puff INHALATION DIRECTED PRN (Reason: Shortness Of Breath Or Wheezing) Discharge Orders: Discharge Order (Routine); Ordered 12/01/23 Ordered By: Rekha Mancilla Admission Data Admit Date/Time: 11/26/23 20:14 Attending Provider: Rekha Mancilla Admit Provider: Catracho Rodriguez Primary Care Provider: Rocky Long Other Providers: Catracho Rodriguez Other Interventions: Discharge Summary Assessment (RN) Last Done: 12/01/23 09:55 Coding Level of Care Code 35112 INP/OBS DISCH >30 MIN Diagnoses Uncontrolled diabetes mellitus with hyperglycemia E11.65 PNA (pneumonia) J18.9 Urinary tract infection N39.0 Generalized weakness R53.1 Vision disturbance H53.9 Rash R21 Abdominal pain R10.9 Fall W19.XXXA COPD (chronic obstructive pulmonary disease) J44.9 Hypothyroidism E03.9 Bipolar disorder F31.9 Hypertension I10 Sleep apnea G47.30
== END 2023-12-01 10:30 | disposition home or self-care (01) | DRG 193 ==
LOC: ED 14:33 → SUATTDRO 20:14 → 2S 20:14

== ENCOUNTER 2024-05-12 05:00 | Observation (INO) ==
--- NOTE | 2024-05-12 05:12 | Emergency Department Note ---
Impression & Plan Acute pancreatitis, Acute upper abdominal pain, Acute hyperglycemia, Nausea vomiting and diarrhea ED Provider Note NAME: MERLIN VALENTINE AGE: 58 SEX: F : 1965 ARRIVES VIA: Walk-In INFORMANT: Patient, ED PROVIDER(S): Marcellus Buckner MD CHIEF COMPLAINT: Abdominal pain, nausea vomiting and diarrhea MEDICAL DECISION MAKING: Patient presents due to concern for nausea vomiting diarrhea and abdominal pain. The patient does have epigastric and right upper quadrant pain but is already had a prior cholecystectomy. No lower abdominal pain. IV was established and blood work was obtained along with lipase [id number] BMP CT abdomen pelvis also ordered. Patient was ordered IV morphine IV Reglan and IV fluids. Patient also did have stool studies ordered. Patient's blood work shows a white count of 13.98 with a normal H&H and platelet count. Blood sugar is elevated at 221. Kidney function unremarkable. LFTs fairly unremarkable review of the patient's CAT scan does show concern for some peripancreatic inflammation. Lipase of greater than 2000. Natoma level is low. Given the patient's pain I did speak with the on-call hospitalist service Dr. German the patient was to be admitted by Dr. Espinoza. Discussion w/ other healthcare providers: Dr. German/Dr. Mancilla inpatient medicine service Prior /Outside records reviewed: None Differential diagnosis: Appendicitis, ovarian cyst, ovarian torsion, ectopic , TOA, PID, diverticulitis, UTI, obstruction, inflammatory bowel disease, renal colic, PUD, pancreatitis, biliary pathology, hernia, volvulus, constipation, as well as other pathologies were considered. Diagnostics, as interpreted by me: ECG: None Cardiac monitoring: An order was placed for continuous cardiac monitoring. The monitor shows a rate of 82 with sinus rhythm. Patient was placed on pulse oximetry Medical decision rules: None Imaging studies: I informally interpreted the patient's CT of the abdomen pelvis with IV contrast shows concern for peripancreatic inflammation with formal report to follow. HPI: Patient presents due to concern for abdominal pain nausea vomiting and diarrhea. The patient states that she has the pain in her upper abdomen most prominent the right upper quadrant but associated epigastrium. The patient states that it does not feel quite the same as when she has pancreatitis. The patient states the pain feels different but it is in a similar location. Patient denies any chest pains or shortness of breath. The patient began having symptoms yesterday afternoon and has had associated dry heaves vomiting as well as diarrhea. The patient believes that she has had about 10 bowel movements since yesterday. No blood. Patient denies any known sick contacts is not work with any animals and no exotic pets. The patient did travel to [place] last month. No known sick contacts or any issues or during the trip. Patient reportedly recently had a cold and was treated for an infection with penicillin. PAST MEDICAL HISTORY: See Below PAST SURGICAL HISTORY: See Below SOCIAL HISTORY: See Below HOME MEDICATIONS: See Below ALLERGIES: See Below VITALS: See Below PHYSICAL EXAMINATION: GENERAL: NAD, non-toxic. Wearing glasses. EYE EXAM: Normal conjunctiva. PERRL, no anisocoria and EOM's grossly intact w/o pain. OROPHARYNX: Dry mucous membranes, false teeth in place. NECK: Trachea midline, no stridor. LUNGS: Clear to auscultation. Normal chest wall mechanics. HEART: NSR, no MRG. ABDOMEN: Abdomen soft, non-tender, no masses, no rebound or guarding. BACK: No CVA TTP. SKIN: No rashes and no bruising. UPPER EXTREMITIES: Upper extremities are grossly normal. LOWER EXTREMITIES: Grossly normal, no edema. NEURO EXAM: A&O x3, cranial nerves II-XII grossly intact, normal speech, moves all 4 extremities. Past Med/Surg History Problem List (Updated 05/12/24 @ 23:24 by Marcellus Buckner MD) Nausea vomiting and diarrhea (Acute) Acute hyperglycemia (Acute) Acute upper abdominal pain (Acute) Acute pancreatitis (Acute) Type 2 diabetes mellitus Hypertension Periodic limb movement disorder Thrush, oral Atopic dermatitis Synovitis Gastroparesis Mood disorder Asthma allergy induced-- inh prn Diabetes Chronic pancreatitis Pneumonia (Acute) Hypothyroidism Gastritis and duodenitis Eczema Bronchitis Seasonal rhinitis Mild persistent asthma Vision disturbance Dysphonia Dry mouth Vocal cord dysfunction Post-COVID syndrome Pancreatic cyst Migraine headache COPD (chronic obstructive pulmonary disease) Mild cardiomegaly Cervical radiculopathy at C7 Anemia Steatohepatitis, nonalcoholic Bipolar disorder Pancreatic insufficiency Hoarseness Laryngopharyngeal reflux (LPR) Abdominal pain Sleep disorder Periodic limb movement Tongue ulcer Headache Hypertension Serotonin syndrome Pancreatic fistula Confusion Paronychia of finger Yeast pharyngitis Dermatitis Elevated blood pressure reading without diagnosis of hypertension Dream enactment behavior Parasomnia Insomnia Restless leg syndrome Sleep apnea cpap Anxiety GERD (gastroesophageal reflux disease) Tremor Medical History Uncontrolled diabetes mellitus with hyperglycemia Rash Dehydration Impaired glucose metabolism Chronic cough Sleep apnea hx; tested 10/2022, no longer needs device Chronic pancreatitis Herpes simplex hx Internal hemorrhoids Weight loss unintentional in 2021-currently "holding at the same weight" Gastritis and duodenitis Bipolar 1 disorder, mixed Abnormal CT of the abdomen "muscle that's not working in her abdomen" Hypothyroidism Mild cardiomegaly pt unaware Acute kidney injury CHI (closed head injury) pt denies Migraine with aura and without status migrainosus, not intractable H/O: pneumonia 2021, no current symptoms History of colon polyps Depression Bipolar disorder Surgical History S/P excision of lipoma 2017 from arm Status post incision and drainage pancreatic pseudocyst 01/25/16 History of total hysterectomy with bilateral salpingo-oophorectomy (BSO) History of colonoscopy History of esophagogastroduodenoscopy (EGD) History of cholecystectomy History of tooth extraction all upper teeth History of wisdom tooth extraction Family History Mother Hypertension Diabetes Father Migraine Brother Multiple sclerosis Sister Migraine Other No family history of adverse response to anesthesia Denies family history of Ovarian cancer Prostate cancer Breast cancer Lung cancer Colorectal cancer Stroke Social History Smoking Status: Never smoker Tobacco Type: Cigarettes Second Hand Exposure: No; Do You Dip or Chew Tobacco: No; Tobacco Cessation Education Requested by Patient: No Hx Alcohol Use: No Hx Substance Use: No Preferred Language: German Communication Ability: Effective Professional Healthcare Representative Required: No Beliefs That Will Affect Care: None marital status: marital status details: spouse:Perez Valentine Current Living Situation: Spouse Current Living Situation Comment: Lives at home with Other Information That Helps Us Care for You: No Feels Safe at Home: Yes Safety Concerns: Feels Safe At This Time Assistive Devices: CPAP and Denture - Upper Allergies Allergies Allergy/AdvReac Type Severity Reaction Status Date / Time cat dander Allergy Intermediate FACIAL Verified 05/11/24 09:04 SWELLING AND RASH clarithromycin [From Biaxin] AdvReac Unknown contraindic Verified 05/11/24 09:04 ation levofloxacin AdvReac Unknown contraindication Verified 05/11/24 09:04 to med Home Meds Home Medications Medication Instructions Recorded Confirmed ascorbic acid (vitamin C) 1,000 mg 1 g PO QAM 03/02/19 05/12/24 tablet (Vitamin C) cholecalciferol (vitamin D3) 25 1,000 unit PO QAM 03/02/19 05/12/24 mcg (1,000 unit) tablet (Vitamin D3) fluvoxamine 100 mg tablet 200 mg PO HS 03/02/19 05/12/24 vitamin E 268 mg (400 unit) capsule 400 unit PO QAM 07/04/19 05/12/24 lithium carbonate 300 mg capsule 300 mg PO HS 07/10/22 05/12/24 olanzapine 7.5 mg tablet 7.5 mg PO HS 03/05/23 05/12/24 thiamine HCl (vitamin B1) 100 mg 100 mg PO QAM 06/20/23 05/12/24 tablet vitamin B complex 1 tab DAILY 11/26/23 05/12/24 lactobacillus combination no.9 4 4,000 mmu cells PO DAILY 12/10/23 05/12/24 billion cell capsule (Adult 50 Plus Probiotic) paroxetine HCl 40 mg tablet 40 mg PO QAM 12/10/23 05/12/24 linaclotide 72 mcg capsule 72 mcg PO DAILY 02/03/24 05/12/24 (Linzess) famotidine 40 mg tablet 40 mg PO BID 02/04/24 05/12/24 mometasone 0.1 % topical ointment 1 applic topical DAILY PRN Itching 05/12/24 05/12/24 nystatin 100,000 unit/mL oral 100,000 unit PO TID PRN Mouth 05/12/24 05/12/24 suspension Irritation triamcinolone acetonide 0.1 % 1 applic dental BID PRN Mouth 05/12/24 05/12/24 dental paste Irritation Previous Rx's Medication Instructions Recorded fluticasone propionate 50 2 spray intranasal DAILY #16 grams 09/09/23 mcg/actuation nasal spray,suspension ipratropium bromide 21 mcg (0.03 2 spray intranasal TID PRN 09/09/23 %) nasal spray postnasal drip #30 mL lancets 33 gauge (OneTouch Delica #100 ea 11/28/23 Plus Lancet) ubrogepant 100 mg tablet (Ubrelvy) 100 mg PO DAILY PRN headache #30 12/12/23 tabs albuterol sulfate 90 mcg/actuation 2 puff inhalation Q4H PRN 12/25/23 aerosol inhaler (Ventolin HFA) shortness of breath or wheezing #8.5 grams esomeprazole magnesium 40 mg 40 mg PO QAM #90 caps 01/27/24 capsule,delayed release levothyroxine 50 mcg tablet 50 mcg PO QAM #90 tabs 01/28/24 (Synthroid) glimepiride 4 mg tablet 4 mg PO DAILY #30 tabs 02/04/24 lancets 33 gauge (OneTouch Delica #100 ea 02/04/24 Plus Lancet) metformin 750 mg tablet,extended 750 mg PO BID 90 days #180 tabs 02/09/24 release 24 hr empagliflozin 10 mg tablet 10 mg PO DAILY #90 tabs 04/26/24 (Jardiance) blood sugar diagnostic (OneTouch #100 ea 05/06/24 Verio test strips) Results & Data (ED) Vital Signs Vital Signs - 24 hr 05/12/24 05:01 05/12/24 05:01 05/12/24 05:20 Temperature 36.4 C L Temperature Source Oral Pulse Rate 92 H Pulse Rate from SpO2 Sensor Pulse Rhythm Respiratory Rate 18 Respiratory Effort / Characteristics Non-Labored Non-Labored Respiratory Depth Normal Normal Blood Pressure 193/100 H Blood Pressure Mean 131 Pulse Oximetry 97 Oxygen Delivery Method Room Air Room Air Sepsis Recent Fever Within 48 Hours No Sepsis New/Unexplained Change in Mental Status No Sepsis Action Taken by Nursing No Action Required 05/12/24 05:54 05/12/24 05:55 05/12/24 07:30 Temperature Temperature Source Pulse Rate 77 79 62 Pulse Rate from SpO2 Sensor 62 Pulse Rhythm Regular Respiratory Rate 22 23 Respiratory Effort / Characteristics Respiratory Depth Blood Pressure 164/86 H Blood Pressure Mean 112 Pulse Oximetry 99 96 Oxygen Delivery Method Room Air Room Air Sepsis Recent Fever Within 48 Hours Sepsis New/Unexplained Change in Mental Status Sepsis Action Taken by Half-Way Medications Current Medication List: was personally reviewed by me Laboratory Data Attestation: I reviewed the patient's lab results. 05/12/24 05:26 05/12/24 05:26 Lab Results 05/12/24 05/12/24 05/12/24 Range/Units 05:26 05:32 07:20 WBC 13.98 H (4.8-10.8) K/ul RBC 5.03 (4.20-5.40) M/uL Hgb 14.1 (12.0-16.0) g/dl POC Hgb 14.6 (12.0-16.0) g/dl Hct 43.0 (37.0-47.0) % POC Hct 43 (37-47) % MCV 85.5 (80.0-100.0) fL MCH 28.0 (25.0-34.0) pg MCHC 32.8 (32.0-36.0) g/dL RDW Std Deviation 42.1 (36.4-46.3) fL RDW Coeff of Donald 13.6 (11.5-14.5) % Plt Count 153 (130-400) K/uL MPV 10.6 (9.4-12.4) fL Immature Gran % (Auto) 0.6 % Neut % (Auto) 87.3 % Lymph % (Auto) 7.8 % [place] % (Auto) 4.0 % Eos % (Auto) 0.1 % Baso % (Auto) 0.2 % Neut # (Auto) 12.21 H (1.40-6.50) K/uL Lymph # (Auto) 1.09 L (1.20-3.40) K/uL [place] # (Auto) 0.56 (0.11-0.59) K/uL Eos # (Auto) 0.01 (0.00-0.50) K/uL Baso # (Auto) 0.03 (0.00-0.20) K/uL Immature Gran # (Auto) 0.08 (0.01-0.20) K/uL POC Sodium 140 (135-144) mmol/L Sodium 139 (136-145) mmol/L POC Potassium 4.1 (3.3-5.0) mmol/L Potassium 4.1 (3.5-5.1) mmol/L POC Chloride 106 (101-112) mmol/L Chloride 105 (98-107) mmol/L Carbon Dioxide 23 (21-32) mmol/L POC Total CO2 22 L (24-31) mmol/L Anion Gap 11 (3-11) POC Anion Gap 17.0 (16-25) mmol/L POC BUN 16 (7-18) mg/dl BUN 17 (6-23) mg/dl Creatinine 0.84 (0.6-1.2) mg/dl POC Creatinine 0.7 (0.6-1.3) mg/dl Est Cr Clr Drug Dosing 62.5 ml/min Est GFR ( Amer) 88.2 ml/min Est GFR (Non-Af Amer) 76.1 ml/min BUN/Creatinine Ratio 20.2 H (10-20) Glucose 221 H (70-99(Fasting)) mg/dl POC Glucose (other) 221 H (70-99) mg/dl Calcium 10.4 H (8.6-10.3) mg/dl POC Ioniz Calcium Andres 1.27 (1.12-1.32) mmol/l Total Bilirubin 0.6 (0.2-1.0) mg/dl AST 13 (13-39) U/L ALT 36 (7-52) U/L Alkaline Phosphatase 115 H (34-104) U/L Total Protein 7.4 (6.0-8.3) gm/dl Albumin 4.9 (3.4-5.0) gm/dl Globulin 2.5 (2.5-4.0) gm/dl Albumin/Globulin Ratio 2.0 (0.9-2) Triglycerides 146 (0-150) mg/dl Lipase 2093 H (11-82) U/L Urine Color Yellow Urine Appearance Clear (Clear) Urine pH 7.5 (4.5-7.5) Ur Specific Reading 1.042 H (1.000-1.030) Urine Protein Negative (Negative) Urine Glucose (UA) 2+ H (Negative) Urine Ketones Negative (Negative) Urine Blood Negative (Negative) Urine Nitrite Negative (Negative) Urine Bilirubin Negative (Negative) Urine Urobilinogen Negative (Negative) Ur Leukocyte Esterase Negative (Negative) Natoma 0.3 L (0.6-1.2) mmol/L Administered Medications Acetaminophen (Acetaminophen 325 Mg Tab) 650 mg PO Q4H PRN PRN Reason: pain/fever Stop: 06/11/24 12:08 Last Admin: 05/12/24 20:23 Dose: 650 mg Documented By: VADIM Enoxaparin Sodium (Enoxaparin Inj 40 Mg/0.4 Ml Syr) 40 mg SQ Q24H NICK Stop: 06/11/24 12:29 Last Admin: 05/12/24 13:06 Dose: 40 mg Documented By: VALENTINA Famotidine (Famotidine 40 Mg Tablet) 40 mg PO BID NICK Stop: 06/11/24 12:14 Last Admin: 05/12/24 20:24 Dose: 40 mg Documented By: Admin: 05/12/24 13:08 Dose: 40 mg Documented By: VALENTINA Fluticasone Propionate (Fluticasone Propionate Na Spr 16 Gm Btl) 2 sprays NA DAILY NICK Stop: 06/11/24 12:08 Last Admin: 05/12/24 13:06 Dose: 2 sprays Documented By: VALENTINA Fluvoxamine Maleate (Fluvoxamine Maleate 50 Mg Tab) 200 mg PO HS NICK Stop: 06/11/24 20:59 Last Admin: 05/12/24 20:24 Dose: 200 mg Documented By: VADIM Lactated Ringer's (Lr) 1,000 mls @ 200 mls/hr IV .Q5H NICK Stop: 05/14/24 08:59 Last Admin: 05/12/24 20:42 Dose: 200 mls/hr Documented By: Infusion: 05/12/24 20:07 Dose: Infused Documented By: Admin: 05/12/24 15:07 Dose: 200 mls/hr Documented By: Infusion: 05/12/24 15:07 Dose: Infused Documented By: Admin: 05/12/24 13:14 Dose: 200 mls/hr Documented By: Infusion: 05/12/24 13:14 Dose: Infused Documented By: Admin: 05/12/24 09:33 Dose: 200 mls/hr Documented By: GISELLE Insulin Aspart (Insulin Aspart Per Unit Charge) 0 units SC Q6 NICK Stop: 06/11/24 12:14 Last Admin: 05/12/24 18:01 Dose: Not Given Documented By: SHENG Levothyroxine Sodium (Levothyroxine Sodium 50 Mcg Tablet) 50 mcg PO DAILYBB NICK Stop: 06/11/24 12:29 Last Admin: 05/12/24 13:07 Dose: 50 mcg Documented By: VALENTINA Linaclotide (Linaclotide 72 Mcg Capsule) 72 mcg PO DAILY [facility] Stop: 06/11/24 12:29 Last Admin: 05/12/24 13:07 Dose: 72 mcg Documented By: VALENTINA Natoma Carbonate (Natoma Carbonate 300 Mg Tab) [address] [facility] Stop: 06/11/24 20:59 Last Admin: 05/12/24 20:24 Dose: 300 mg Documented By: VADIM Miscellaneous (Ipratropium 0.03%: Order Awaiting Action) 1 each N/A QS [facility] Stop: 06/11/24 15:59 Last Admin: 05/12/24 15:16 Dose: Not Given Documented By: SHENG Morphine Sulfate (Morphine Sulfate 4 Mg/Ml 1 Ml Carp\\Vial) 4 mg IV Q4 PRN PRN Reason: Pain Stop: 05/26/24 09:15 Last Admin: 05/12/24 09:34 Dose: 4 mg Documented By: GISELLE Olanzapine (Olanzapine 2.5 Mg Tab) 7.[address] [facility] Stop: 06/11/24 20:59 Last Admin: 05/12/24 20:24 Dose: 7.5 mg Documented By: VADIM Oxycodone HCl (Oxycodone Hcl Ir 5 Mg Tab (Immediate Release)) 5 mg PO Q4H PRN PRN Reason: Moderate Pain (Scale 4, 5, 6) Stop: 05/26/24 12:08 Last Admin: 05/12/24 15:07 Dose: 5 mg Documented By: SHENG Pantoprazole Sodium (Pantoprazole 40 Mg Tab) [facility] Stop: 06/11/24 12:14 Last Admin: 05/12/24 13:08 Dose: 40 mg Documented By: VALENTINA Paroxetine HCl (Paroxetine Hcl 20 Mg Tab) 40 mg PO QAM [facility] Stop: 06/11/24 12:29 Last Admin: 05/12/24 13:07 Dose: 40 mg Documented By: VALENTINA Discontinued Medications Sodium Chloride (Nss) 1,000 mls @ 999 mls/hr IV .Q1H1M STA Stop: 05/12/24 06:20 Last Infusion: 05/12/24 08:04 Dose: Infused Documented By: Admin: 05/12/24 05:27 Dose: 999 mls/hr Documented By: TRINH Insulin Aspart (Insulin Aspart Per Unit Charge) 0 units SC ACHS [facility] Stop: 06/11/24 12:14 Last Admin: 05/12/24 13:13 Dose: Not Given Documented By: VALENTINA Co-signed By: STAN Ioversol (Optiray 320 100ml) 100 ml IV ONCE ONE Stop: 05/12/24 05:43 Last Admin: 05/12/24 05:43 Dose: 93 ml Documented By: GIRISH Metoclopramide HCl (Metoclopramide Hcl Inj 5 Mg/Ml 2 Ml Vial) 10 mg IV NOW STA Stop: 05/12/24 05:21 Last Admin: 05/12/24 05:27 Dose: 10 mg Documented By: TRINH Morphine Sulfate (Morphine Sulfate 4 Mg/Ml 1 Ml Carp\\Vial) 4 mg IV NOW STA Stop: 05/12/24 05:21 Last Admin: 05/12/24 05:27 Dose: 4 mg Documented By: TRINH Imaging Data Radiologist's Impression: Abdomen/Pelvis CT 05/12/24 05:20 CT SCAN OF THE ABDOMEN AND PELVIS WITH IV CONTRAST CLINICAL HISTORY: Epigastric pain. Right upper quadrant abdominal pain. COMPARISON STUDY: Abdominal CT dated 11/26/2023. TECHNIQUE: Following the IV administration of 93 cc of Optiray 320, CT scan of the abdomen and pelvis is performed from the lung bases to the proximal femora. Images are reviewed in the axial, sagittal, and coronal planes. IV contrast was administered without complication. A dose lowering technique was utilized adhering to the principles of ALARA. CT DOSE: 1148.48 mGy.cm FINDINGS: Lung bases: The heart is normal in size and without pericardial effusion. The lung bases are clear noting dependent atelectasis. There is a tiny hiatal hernia. Liver: The contrast-enhanced liver is top normal in size. Attenuation is diffusely diminished indicating steatosis. There is no intrahepatic biliary ductal dilatation. The hepatic veins and portal veins are patent. Gallbladder: Surgically absent noting clips in the gallbladder fossa. Spleen: The spleen is mildly enlarged measuring 14.5 cm in length. Pancreas: The pancreas is atrophic. There is peripancreatic inflammation and fluid consistent with acute pancreatitis. The pancreatic duct is normal in caliber. The gland enhances throughout. No organized peripancreatic fluid collection is identified. The splenic vein is patent, with focal narrowing seen just before the portosplenic confluence. There are perigastric and perisplenic collaterals. Small tracts are again suggested between the proximal stomach and the pancreatic tail and splenic hilum (axial images #72 and #80). Adrenal glands: Unremarkable. Kidneys: The contrast enhanced kidneys are normal in size and without hydronephrosis. The kidneys enhance symmetrically. Abdominal vasculature: The abdominal aorta is normal in course and caliber. Bowel: There is no bowel obstruction. The appendix is well-visualized and normal. Peritoneum: There is no intraperitoneal free air or abdominal ascites. There is a fat-containing umbilical hernia. Lymphadenopathy: None. Pelvic viscera: The bladder is normal as visualized. The uterus is surgically absent. No adnexal lesion is seen. Skeletal structures: No lytic or blastic lesions are seen. IMPRESSION: 1. Findings are consistent with acute pancreatitis. Correlate with clinical and laboratory findings. 2. The gland enhances throughout, and no organized peripancreatic fluid collection is identified. 3. There is narrowing of the splenic vein with perigastric and perisplenic collaterals. This is similar to previous. 4. Thin tracts are again suggested 20 the proximal stomach and the splenic hilum and pancreatic tail. These are indeterminant, and chronic represent chronic inflammation. Tiny fistulous tracts are not excluded. There is no gas or fluid within these tracts at this time. 5. Hepatic steatosis. 6. Additional findings as above. ACT 112: Negative or not required by law. Electronically signed by: Delta Evans M.D. 05/12/2024 6:51 AM Discharge Plan Visit Data Chief Complaint: Illness Stated Complaint: VOIMITING, DIARRHEA ED Provider: Marcellus Buckner Discharge Problem: Acute pancreatitis, Acute upper abdominal pain, Acute hyperglycemia, Nausea vomiting and diarrhea Patient Disposition: Admitted As Inpatient Discharge Instructions Interventions: ED Discharge Assessment Last Done: 05/12/24 12:09 Discharge Problem: Acute pancreatitis Qualifiers: Pancreatitis type: unspecified pancreatitis type Acute pancreatitis complication: no infection or necrosis Qualified Code(s): K85.90 - Acute pancreatitis without necrosis or infection, unspecified
[2024-05-12] MEDS: SODIUM CHLORIDE 0.9% 1,000 ML IV STA (05:27)
[2024-05-12] MEDS: MoRPHine SULFATE 4 MG/ML 1 ML CARP\\VIAL IV STA (05:27)
[2024-05-12] MEDS: METOCLOPRAMIDE HCL INJ 5 MG/ML 2 ML VIAL IV STA (05:27)
[2024-05-12] MEDS: OPTIRAY 320 100ml IV ONE (05:43)
[2024-05-12 05:47] LABS: Basophils # (auto) 0.03 K/uL (0.00-0.20); Basophils % (auto) 0.2 %; Eosinophils # (auto) 0.01 K/uL (0.00-0.50); Eosinophils % (auto) 0.1 %; Hemoglobin 14.1 g/dl (12.0-16.0); Immature Granulocytes # (auto) 0.08 K/uL (0.01-0.20); Immature Granulocytes % (auto) 0.6 %; Lymphocytes # (auto) 1.09 K/uL (1.20-3.40); Lymphocytes % (auto) 7.8 %; Mean Corpuscular Hgb Conc 32.8 g/dL (32.0-36.0); Mean Corpuscular Volume 85.5 fL (80.0-100.0); Mean Platelet Volume 10.6 fL (9.4-12.4); Monocytes # (auto) 0.56 K/uL (0.11-0.59); Neutrophils # (auto) 12.21 K/uL (1.40-6.50); Neutrophils % (auto) 87.3 %; Platelet Count 153 K/uL (130-400); RDW Coefficient of Variation 13.6 % (11.5-14.5); RDW Standard Deviation 42.1 fL (36.4-46.3); Red Blood Count 5.03 M/uL (4.20-5.40); White Blood Count 13.98 K/ul (4.8-10.8)
[2024-05-12 05:49] LABS: iSTAT Creatinine 0.7 mg/dl (0.6-1.3); iSTAT Hemoglobin 14.6 g/dl (12.0-16.0); iSTAT Ionized Calcium 1.27 mmol/l (1.12-1.32); iSTAT Potassium 4.1 mmol/L (3.3-5.0)
[2024-05-12 05:54] LABS: BUN Creatinine Ratio 20.2 (10-20); Calcium 10.4 mg/dl (8.6-10.3); Creatinine Clr Calc Pharmacy 62.5 ml/min; Est GFR (African American) 88.2 ml/min; Est GFR (Non-African American) 76.1 ml/min; Potassium 4.1 mmol/L (3.5-5.1)
[2024-05-12 05:56] LABS: Albumin Level 4.9 gm/dl (3.4-5.0); Bilirubin,Total 0.6 mg/dl (0.2-1.0); Globulin 2.5 gm/dl (2.5-4.0); Total Protein 7.4 gm/dl (6.0-8.3)
--- NOTE | 2024-05-12 06:54 | CT Scan Report ---
CT SCAN OF THE ABDOMEN AND PELVIS WITH IV CONTRAST CLINICAL HISTORY: Epigastric pain. Right upper quadrant abdominal pain. COMPARISON STUDY: Abdominal CT dated 11/26/2023. TECHNIQUE: Following the IV administration of 93 cc of Optiray 320, CT scan of the abdomen and pelvi s is performed from the lung bases to the proximal femora. Images are reviewed in the axial, sagittal , and coronal planes. IV contrast was administered without complication. A dose lowering technique wa s utilized adhering to the principles of ALARA. CT DOSE: 1148.48 mGy.cm FINDINGS: Lung bases: The heart is normal in size and without pericardial effusion. The lung bases are clear no ting dependent atelectasis. There is a tiny hiatal hernia. Liver: The contrast-enhanced liver is top normal in size. Attenuation is diffusely diminished indicat ing steatosis. There is no intrahepatic biliary ductal dilatation. The hepatic veins and portal veins are patent. Gallbladder: Surgically absent noting clips in the gallbladder fossa. Spleen: The spleen is mildly enlarged measuring 14.5 cm in length. Pancreas: The pancreas is atrophic. There is peripancreatic inflammation and fluid consistent with ac habematolel pancreatitis. The pancreatic duct is normal in caliber. The gland enhances throughout. No organiz ed peripancreatic fluid collection is identified. The splenic vein is patent, with focal narrowing se en just before the portosplenic confluence. There are perigastric and perisplenic collaterals. Small tracts are again suggested between the proximal stomach and the pancreatic tail and splenic hilum (ax ial images #72 and #80). Adrenal glands: Unremarkable. Kidneys: The contrast enhanced kidneys are normal in size and without hydronephrosis. The kidneys enh ance symmetrically. Abdominal vasculature: The abdominal aorta is normal in course and caliber. Bowel: There is no bowel obstruction. The appendix is well-visualized and normal. Peritoneum: There is no intraperitoneal free air or abdominal ascites. There is a fat-containing umbi lical hernia. Lymphadenopathy: None. Pelvic viscera: The bladder is normal as visualized. The uterus is surgically absent. No adnexal lesi on is seen. Skeletal structures: No lytic or blastic lesions are seen. IMPRESSION: 1. Findings are consistent with acute pancreatitis. Correlate with clinical and laboratory findings. 2. The gland enhances throughout, and no organized peripancreatic fluid collection is identified. 3. There is narrowing of the splenic vein with perigastric and perisplenic collaterals. This is simil ar to previous. 4. Thin tracts are again suggested 20 the proximal stomach and the splenic hilum and pancreatic tail. These are indeterminant, and chronic represent chronic inflammation. Tiny fistulous tracts are not e xcluded. There is no gas or fluid within these tracts at this time. 5. Hepatic steatosis. 6. Additional findings as above. ACT 112: Negative or not required by law. Electronically signed by: Delta Evans M.D. 05/12/2024 6:51 AM
[2024-05-12 07:35] LABS: Appearance Urine Clear (Clear); Bilirubin Urine Negative (Negative); Blood Urine Negative (Negative); Color Urine Yellow; Glucose Urine UA 2+ (Negative); Ketones Urine Negative (Negative); Leukocyte Esterase Urine Negative (Negative); Nitrite Urine Negative (Negative); Protein Urine Negative (Negative); Specific Gravity Urine 1.042 (1.000-1.030); Urobilinogen Urine Negative (Negative); pH Urine 7.5 (4.5-7.5)
--- NOTE | 2024-05-12 09:05 | History & Physical Report ---
Date of Service May 12, 2024 Assessment & Plan (1) Acute pancreatitis: Plan: 58-year-old woman with history of diabetes type 2 and gastroparesis admitted with acute on chronic pancreatitis. No clear precipitant as she no longer drinks alcohol and has no new medications, triglycerides are normal at less than 150, she is status postcholecystectomy and no evidence of choledocholithiasis based on CT imaging normal bilirubin AST and ALT. Slightly elevated alk phos seems insignificant and she does have history of mash. Previous episode of pancreatitis was note recent and associated with alcohol use per GI clinic notes. This has been followed by GI at [facility]. Reviewed 2023 clinic notes from Latrice Ramsey and Nathen Heath. She did have EUS in 02/2020 without findings concerning for malignancy. Subsequently followed by serial MRI abdomen. 07/2023 with pancreas atrophy and no mass. She had follow up MRI 01/2024 and reports that there were no new/concerning findings but I do not have access to a report for that MRI. 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 these abnormalities are unchanged on serial CTs in our system the most recent of which was overnight. continue aggressive IV fluids for 48 hoursLR at 200 mL/h continue bowel rest sips and chips for today continue symptomatic care with IV morphine or oral oxycodone as needed for pain and IV ondansetron as needed for nausea will request report of recent MRI of abdomen I think the nausea vomiting and diarrhea is probably related to the onset of pancreatitis, it was extremely transient will not evaluate further unless it is recurrent she also has a history of gastroparesis and is prone to nausea and vomiting (2) Type 2 diabetes mellitus: Plan: recent hemoglobin A1c 7.5% well-controlled. Continue glucose checks and as needed short acting insulin while in hospital, probably will need addition of long-acting once she is taking a diet we will hold her oral medications (3) Chronic pancreatitis: Plan: history of, see above (4) Gastroparesis: Plan: antiemetics as needed, minimize opioids as able, good glycemic control (5) Bipolar 1 disorder, mixed: Plan: continue lithium, fluvoxamine, paroxetine, at bedtime olanzapine Plan DVT prophylaxisenoxaparin History of Present Illness Chief Complaint: abdominal pain Primary Care Provider: Rocky Long MD 58 y/o woman with history of previous remote episodes of pancreatitis resulting in pancreas tail pseudocyst with development of postinflammatory scarring, 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 Previous episode of pancreatitis was note recent and associated with alcohol use per GI clinic notes. This has been followed by GI at [facility]. Reviewed 2023 clinic notes from Latrice Ramsey and Nathen Heath. She did have EUS in 02/2020 without findings concerning for malignancy. Subsequently followed by serial MRI abdomen. 07/2023 with pancreas atrophy and no mass. She had follow up MRI 01/2024 and reports that there were no new/concerning findings but I do not have access to a report for that MRI. 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 I saw her in November of 2023 when she had pneumonia and new diagnosis of type 2 diabetes. After that she did well. She was again in [place] a few weeks ago taking care of her parents. She came back with a URI and was treated with amoxicillin and prednisone, both of which she completed. She has persistent cough but no shortness of breath or fevers. Yesterday afternoon she developed onset of right sided to mid upper abdominal pain associated with nausea vomiting and diarrhea. The pain continued to worsen so she came to the ED overnight. Pain was severe constant and radiating to the back. Remains significant but improved overnight and improved after IV morphine. She has not had any more N/V/D since coming to the ED. She does have a history of gastroparesis. She no longer drinks any alcohol. She has not started any new medications. Allergies Allergy/AdvReac Type Severity Reaction Status Date / Time cat dander Allergy Intermediate FACIAL Verified 05/11/24 09:04 SWELLING AND RASH clarithromycin [From Biaxin] AdvReac Unknown contraindic Verified 05/11/24 09:04 ation levofloxacin AdvReac Unknown contraindication Verified 05/11/24 09:04 to med Home Medications Medication Instructions Recorded Confirmed Type ascorbic acid (vitamin C) 1,000 mg 1 g PO QAM 03/02/19 05/12/24 History tablet (Vitamin C) cholecalciferol (vitamin D3) 25 1,000 unit PO QAM 03/02/19 05/12/24 History mcg (1,000 unit) tablet (Vitamin D3) fluvoxamine 100 mg tablet 200 mg PO HS 03/02/19 05/12/24 History vitamin E 268 mg (400 unit) capsule 400 unit PO QAM 07/04/19 05/12/24 History lithium carbonate 300 mg capsule 300 mg PO HS 07/10/22 05/12/24 History olanzapine 7.5 mg tablet 7.5 mg PO HS 03/05/23 05/12/24 History thiamine HCl (vitamin B1) 100 mg 100 mg PO QAM 06/20/23 05/12/24 History tablet fluticasone propionate 50 2 spray intranasal DAILY #16 grams 09/09/23 05/12/24 Rx mcg/actuation nasal spray,suspension ipratropium bromide 21 mcg (0.03 2 spray intranasal TID PRN 09/09/23 05/12/24 Rx %) nasal spray postnasal drip #30 mL vitamin B complex 1 tab DAILY 11/26/23 05/12/24 History lancets 33 gauge (OneTouch Delica #100 ea 11/28/23 05/12/24 Rx Plus Lancet) lactobacillus combination no.9 4 4,000 mmu cells PO DAILY 12/10/23 05/12/24 History billion cell capsule (Adult 50 Plus Probiotic) paroxetine HCl 40 mg tablet 40 mg PO QAM 12/10/23 05/12/24 History ubrogepant 100 mg tablet (Ubrelvy) 100 mg PO DAILY PRN headache #30 12/12/23 05/12/24 Rx tabs albuterol sulfate 90 mcg/actuation 2 puff inhalation Q4H PRN 12/25/23 05/12/24 Rx aerosol inhaler (Ventolin HFA) shortness of breath or wheezing #8.5 grams esomeprazole magnesium 40 mg 40 mg PO QAM #90 caps 01/27/24 05/12/24 Rx capsule,delayed release levothyroxine 50 mcg tablet 50 mcg PO QAM #90 tabs 01/28/24 05/12/24 Rx (Synthroid) linaclotide 72 mcg capsule 72 mcg PO DAILY 02/03/24 05/12/24 History (Linzess) famotidine 40 mg tablet 40 mg PO BID 02/04/24 05/12/24 History glimepiride 4 mg tablet 4 mg PO DAILY #30 tabs 02/04/24 05/12/24 Rx lancets 33 gauge (OneTouch Delica #100 ea 02/04/24 05/12/24 Rx Plus Lancet) metformin 750 mg tablet,extended 750 mg PO BID 90 days #180 tabs 02/09/24 05/12/24 Rx release 24 hr empagliflozin 10 mg tablet 10 mg PO DAILY #90 tabs 04/26/24 05/12/24 Rx (Jardiance) blood sugar diagnostic (OneTouch #100 ea 05/06/24 05/12/24 Rx Verio test strips) mometasone 0.1 % topical ointment 1 applic topical DAILY PRN Itching 05/12/24 05/12/24 History nystatin 100,000 unit/mL oral 100,000 unit PO TID PRN Mouth 05/12/24 05/12/24 History suspension Irritation triamcinolone acetonide 0.1 % 1 applic dental BID PRN Mouth 05/12/24 05/12/24 History dental paste Irritation Past Med/Surg History Problem List Type 2 diabetes mellitus Hypertension Periodic limb movement disorder Thrush, oral Atopic dermatitis Synovitis Gastroparesis Mood disorder Asthma allergy induced-- inh prn Diabetes Chronic pancreatitis Pneumonia (Acute) Hypothyroidism Gastritis and duodenitis Eczema Bronchitis Seasonal rhinitis Mild persistent asthma Vision disturbance Dysphonia Dry mouth Vocal cord dysfunction Post-COVID syndrome Pancreatic cyst Migraine headache COPD (chronic obstructive pulmonary disease) Mild cardiomegaly Cervical radiculopathy at C7 Anemia Steatohepatitis, nonalcoholic Bipolar disorder Pancreatic insufficiency Hoarseness Laryngopharyngeal reflux (LPR) Abdominal pain Sleep disorder Periodic limb movement Tongue ulcer Headache Hypertension Serotonin syndrome Pancreatic fistula Confusion Paronychia of finger Yeast pharyngitis Dermatitis Elevated blood pressure reading without diagnosis of hypertension Dream enactment behavior Parasomnia Insomnia Restless leg syndrome Sleep apnea cpap Anxiety GERD (gastroesophageal reflux disease) Tremor Medical History Uncontrolled diabetes mellitus with hyperglycemia Rash Dehydration Impaired glucose metabolism Chronic cough Sleep apnea hx; tested 10/2022, no longer needs device Chronic pancreatitis Herpes simplex hx Internal hemorrhoids Weight loss unintentional in 2021-currently "holding at the same weight" Gastritis and duodenitis Bipolar [address], [address] of the abdomen "muscle that's not working in her abdomen" Hypothyroidism Mild cardiomegaly pt unaware Acute kidney injury CHI (closed head injury) pt denies Migraine with aura and without status migrainosus, not intractable H/O: pneumonia 2021, no current symptoms History of colon polyps Depression Bipolar disorder Surgical History S/P excision of lipoma 2017 from arm Status post incision and drainage pancreatic pseudocyst 01/25/16 History of total hysterectomy with bilateral salpingo-oophorectomy (BSO) History of colonoscopy History of esophagogastroduodenoscopy (EGD) History of cholecystectomy History of tooth extraction all upper teeth History of wisdom tooth extraction Family History Mother Hypertension Diabetes Father Migraine Brother Multiple sclerosis Sister Migraine Other No family history of adverse response to anesthesia Denies family history of Ovarian cancer Prostate cancer Breast cancer Lung cancer Colorectal cancer Stroke Social History Smoking Status: Never smoker Tobacco Type: Cigarettes Second Hand Exposure: No; Do You Dip or Chew Tobacco: No; Tobacco Cessation Education Requested by Patient: No Hx Alcohol Use: No Hx Substance Use: No Preferred Language: Persian Communication Ability: Effective Habilitation Worker Required: No Beliefs That Will Affect Care: None marital status: marital status details: spouse:Perez Valentine Current Living Situation: Spouse Current Living Situation Comment: Lives at home with Other Information That Helps Us Care for You: No Feels Safe at Home: Yes Safety Concerns: Feels Safe At This Time Assistive Devices: CPAP and Denture - Upper Review of Systems 2 Review of Systems: All systems reviewed & are unremarkable except as noted in HPI & below Physical Exam 2 Physical Exam: PHYSICAL EXAMINATION Last 24h vital signs reviewed, see documentation in flowsheet General: comfortable appearing, no distress, lying down on gurney in ED, is at her bedside HEENT: Normocephalic, atraumatic, pupils round and equal, sclerae anicteric, no conjunctival injection, moist mucus membranes Lungs: Normal respiratory effort. Clear to auscultation bilaterally. No RRW. coarse sounding cough Heart: Regular rate and rhythm, no murmurs. No JVD Abdomen: Soft, nondistended. Bowel sounds present. tender to palpation mid and right upper part of abdomen without rebound rigidity or guarding Extremities: Warm, dry, well-perfused. No extremity edema. Neuro: Alert and oriented x 4, face symmetric, moves 4 extremities well Psych: Normal affect and behavior Results & Data Results & Data Vital Signs (Past 12 Hours) Vital Signs Temp Pulse Resp BP Pulse Ox O2 Del Method 05/12/24 07:30 62 23 164/86 H 96 Room Air 05/12/24 05:55 79 22 99 Room Air 05/12/24 05:54 77 05/12/24 05:20 Room Air 05/12/24 05:01 36.4 C L 92 H 18 193/100 H 97 Room Air Laboratory Results 05/12/24 05:26 05/12/24 05:26 lipase is in 1999 triglycerides are less than 150 bilirubin is 0.6, alk phos mildly elevated at 115, AST and ALT are normal lithium level is 0.3 Negative UA recent A1c 7.5% Diagnostic Findings Abdomen/Pelvis CT 05/12/24 05:20 CT SCAN OF THE ABDOMEN AND PELVIS WITH IV CONTRAST CLINICAL HISTORY: Epigastric pain. Right upper quadrant abdominal pain. COMPARISON STUDY: Abdominal CT dated 11/26/2023. TECHNIQUE: Following the IV administration of 93 cc of Optiray 320, CT scan of the abdomen and pelvis is performed from the lung bases to the proximal femora. Images are reviewed in the axial, sagittal, and coronal planes. IV contrast was administered without complication. A dose lowering technique was utilized adhering to the principles of ALARA. CT DOSE: 1148.48 mGy.cm FINDINGS: Lung bases: The heart is normal in size and without pericardial effusion. The lung bases are clear noting dependent atelectasis. There is a tiny hiatal hernia. Liver: The contrast-enhanced liver is top normal in size. Attenuation is diffusely diminished indicating steatosis. There is no intrahepatic biliary ductal dilatation. The hepatic veins and portal veins are patent. Gallbladder: Surgically absent noting clips in the gallbladder fossa. Spleen: The spleen is mildly enlarged measuring 14.5 cm in length. Pancreas: The pancreas is atrophic. There is peripancreatic inflammation and fluid consistent with acute pancreatitis. The pancreatic duct is normal in caliber. The gland enhances throughout. No organized peripancreatic fluid collection is identified. The splenic vein is patent, with focal narrowing seen just before the portosplenic confluence. There are perigastric and perisplenic collaterals. Small tracts are again suggested between the proximal stomach and the pancreatic tail and splenic hilum (axial images #72 and #80). Adrenal glands: Unremarkable. Kidneys: The contrast enhanced kidneys are normal in size and without hydronephrosis. The kidneys enhance symmetrically. Abdominal vasculature: The abdominal aorta is normal in course and caliber. Bowel: There is no bowel obstruction. The appendix is well-visualized and normal. Peritoneum: There is no intraperitoneal free air or abdominal ascites. There is a fat-containing umbilical hernia. Lymphadenopathy: None. Pelvic viscera: The bladder is normal as visualized. The uterus is surgically absent. No adnexal lesion is seen. Skeletal structures: No lytic or blastic lesions are seen. IMPRESSION: 1. Findings are consistent with acute pancreatitis. Correlate with clinical and laboratory findings. 2. The gland enhances throughout, and no organized peripancreatic fluid collection is identified. 3. There is narrowing of the splenic vein with perigastric and perisplenic collaterals. This is similar to previous. 4. Thin tracts are again suggested 20 the proximal stomach and the splenic hilum and pancreatic tail. These are indeterminant, and chronic represent chronic inflammation. Tiny fistulous tracts are not excluded. There is no gas or fluid within these tracts at this time. 5. Hepatic steatosis. 6. Additional findings as above. ACT 112: Negative or not required by law. Electronically signed by: Delta Evans M.D. 05/12/2024 6:51 AM Code Status & VTE Plan Code Status full code VTE Prophylaxis Plan VTE Prophylaxis will be ordered: Yes PG Care Time/CCT Total # of Minutes Spent Total Time Spent with Patient: Total time spent is greater than 50% in coordination of care (as documented) at patient's floor/unit and/or counseling patient: Coding Level of Care Code 16330 INT INP/OBS CARE 2/55MIN Diagnoses Acute pancreatitis K85.90 Type 2 diabetes mellitus E11.9 Chronic pancreatitis K86.1 Gastroparesis K31.84 Bipolar 1 disorder, mixed F31.60
[2024-05-12] MEDS: LACTATED RINGER'S 1,000 ML IV SCH (09:33)
[2024-05-12] MEDS: MoRPHine SULFATE 4 MG/ML 1 ML CARP\\VIAL IV PRN (09:34)
[2024-05-12] MEDS ORDERED: ONDANSETRON INJ 2 MG/ML 2 ML VIAL IV PRN (12:09)
[2024-05-12] MEDS ORDERED: ALUMINUM/MAGNESIUM SUSP 30 ML UDC PO PRN (12:09)
[2024-05-12] MEDS ORDERED: GLUCOSE 40% GEL 15 GM TUBE PO PRN (12:09)
[2024-05-12] MEDS ORDERED: GLUCOSE 10 TAB/TUBE PO PRN (12:09)
[2024-05-12] MEDS ORDERED: MAGNESIUM HYDROXIDE SUSP 30 ML UDC PO PRN (12:09)
[2024-05-12] MEDS ORDERED: CARBOHYDRATES FOR HYPOGLYCEMIA PO PRN (12:09)
[2024-05-12] MEDS ORDERED: POLYETHYLENE (MIRALAX) 17 GM PACK PO PRN (12:09)
[2024-05-12] MEDS ORDERED: ALBUTEROL HFA 8 GM INHALER INH PRN (12:09)
[2024-05-12] MEDS ORDERED: GLUCAGON FOR INJ 1 MG VIAL SQ PRN (12:09)
[2024-05-12] MEDS ORDERED: DEXTROSE 50% 50 ML SYRINGE IV PRN (12:09)
[2024-05-12] MEDS ORDERED: MELATONIN 3 MG TAB PO PRN (12:09)
[2024-05-12] MEDS: ENOXAPARIN INJ 40 MG/0.4 ML SYR SQ SCH (13:06)
[2024-05-12] MEDS: FLUTICASONE PROPIONATE NA SPR 16 GM BTL SCH (13:06)
[2024-05-12] MEDS: LEVOTHYROXINE SODIUM 50 MCG TABLET PO SCH (13:07)
[2024-05-12] MEDS: PARoxetine HCL 20 MG TAB PO SCH (13:07)
[2024-05-12] MEDS: linaCLOtide 72 MCG CAPSULE PO SCH (13:07)
[2024-05-12] MEDS: FAMOTIDINE 40 MG TABLET PO SCH (13:08)
[2024-05-12] MEDS: PANTOprazole 40 MG TAB PO SCH (13:08)
[2024-05-12] MEDS: INSULIN ASPART PER UNIT CHARGE SC SCH ×2 (13:13→18:01)
[2024-05-12] MEDS: oxyCODONE HCL IR 5 MG TAB (IMMEDIATE RELEASE) PO PRN (15:07)
[2024-05-12] MEDS ORDERED: Nursing to Pharmacy Communication SCH (15:15)
--- NOTE | 2024-05-12 17:04 | XRay Report ---
XR chest 2V PA/lateral CLINICAL HISTORY: persistent cough TECHNIQUE: 2 views of the chest were obtained. Comparison: Comparison is made to chest radiograph 05/03/2024 FINDINGS: No lines and tubes are seen. The cardiomediastinal silhouette is normal. Lungs are underinflated but clear. No evidence of pleural effusion or pneumothorax. IMPRESSION: No acute abnormalities and in particular no radiographic evidence of pneumonia. ACT 112: Negative or not required by law. Electronically signed by: Randy Yuen M.D. 05/12/2024 5:02 PM
[2024-05-12 17:12] LABS: Adenovirus PCR Not Detected (NotDetected); Bordetella parapertussis PCR Not Detected (NotDetected); Bordetella pertussis PCR Not Detected (NotDetected); Chlamydia pneumoniae PCR Not Detected (NotDetected); Coronavirus 229E PCR Not Detected (NotDetected); Coronavirus CoV-2 (COVID19)PCR Not Detected (NotDetected); Coronavirus HKU1 PCR Not Detected (NotDetected); Coronavirus NL63 PCR Not Detected (NotDetected); Coronavirus OC43PCR Not Detected (NotDetected); Human Metapneumovirus PCR Not Detected (NotDetected); Influenza A PCR Not Detected (NotDetected); Influenza B PCR Not Detected (NotDetected); Mycoplasma pneumoniae PCR Not Detected (NotDetected); Parainfluenza Virus 1 PCR Not Detected (NotDetected); Parainfluenza Virus 2 PCR Not Detected (NotDetected); Parainfluenza Virus 3 PCR Not Detected (NotDetected); Parainfluenza Virus 4 PCR Not Detected (NotDetected); Respiratory Syncytial VirusPCR Not Detected (NotDetected); Rhinovirus/Enterovirus PCR Not Detected (NotDetected)
[2024-05-12] MEDS: ACETAMINOPHEN 325 MG TAB PO PRN (20:23)
[2024-05-12] MEDS: LITHIUM CARBONATE 300 MG TAB PO SCH (20:24)
[2024-05-12] MEDS: fluvoxaMINE MALEATE 50 MG TAB PO SCH (20:24)
[2024-05-12] MEDS: OLANZAPINE 2.5 MG TAB PO SCH (20:24)
[2024-05-13] MEDS: MoRPHine SULFATE 4 MG/ML 1 ML CARP\\VIAL IV PRN (04:30)
[2024-05-13] MEDS: guaiFENesin/DEXTROM SYRUP 100MG/10MG 5ML UDC PO PRN (09:37)
[2024-05-13 12:37] LABS: Adenovirus F 40/41 PCR Not Detected (NotDetected); Astrovirus PCR Not Detected (NotDetected); Campylobacter PCR Not Detected (NotDetected); Cryptosporidium PCR Not Detected (NotDetected); Cyclospora cayetanensis PCR Not Detected (NotDetected); Entamoeba histolytica PCR Not Detected (NotDetected); Enteroaggregative E.coli(EAEC) Not Detected (NotDetected); Enteropathogenic E.coli (EPEC) Not Detected (NotDetected); Enterotoxigenic E.coli (ETEC) Not Detected (NotDetected); Giardia lamblia PCR Not Detected (NotDetected); Norovirus GI/GII PCR Not Detected (NotDetected); Plesiomonas shigelloides PCR Not Detected (NotDetected); Rotavirus A PCR Not Detected (NotDetected); Salmonella PCR Not Detected (NotDetected); Sapovirus PCR Not Detected (NotDetected); Shiga-like Toxin E.coli (STEC) Not Detected (NotDetected); Shigella/Enteroinvasive E.coli Not Detected (NotDetected); Vibrio cholerae PCR Not Detected (NotDetected); Vibrio species PCR Not Detected (NotDetected); Yersinia enterocolitica PCR Not Detected (NotDetected)
[2024-05-13] MEDS ORDERED: Nursing to Pharmacy Communication SCH (13:30)
--- NOTE | 2024-05-13 16:26 | Hospitalist Progress Note ---
Date of Service May 13, 2024 Assessment & Plan (1) Acute pancreatitis: Plan: 58-year-old woman with history of diabetes type 2 and gastroparesis admitted with acute on chronic pancreatitis. No clear precipitant as she no longer drinks alcohol and has no new medications, triglycerides are normal at less than 150, she is status postcholecystectomy and no evidence of choledocholithiasis based on CT imaging normal bilirubin AST and ALT. Slightly elevated alk phos seems insignificant and she does have history of mash. Previous episode of pancreatitis was note recent and associated with alcohol use per GI clinic notes. This has been followed by GI at [facility]. Reviewed 2023 clinic notes from Latrice Ramsey and Nathen Heath. She did have EUS in 02/2020 without findings concerning for malignancy. Subsequently followed by serial MRI abdomen. 07/2023 with pancreas atrophy and no mass. She had follow up MRI 01/2024 and reports that there were no new/concerning findings but I do not have access to a report for that MRI. 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 these abnormalities are unchanged on serial CTs in our system the most recent of which was overnight. continue aggressive IV fluids for 48 hoursLR at 200 mL/h - continue through tomorrow morning pain improved a little and not using much opioid so trial clear liquid diet today continue symptomatic care with IV morphine or oral oxycodone as needed for pain and IV ondansetron as needed for nausea requested report of recent MRI of abdomen a.m. BMP CBC LFT I think the nausea vomiting and diarrhea is probably related to the onset of pancreatitis, it was extremely transient will not evaluate further unless it is recurrent she also has a history of gastroparesis and is prone to nausea and vomiting. seems to be improved/resolving (2) Type 2 diabetes mellitus: Plan: recent hemoglobin A1c 7.5% well-controlled. Continue glucose checks and as needed short acting insulin while in hospital, probably will need addition of long-acting once she is taking a diet we will hold her oral medications blood glucose remains below 150 today (3) Chronic pancreatitis: Plan: history of, see above (4) Gastroparesis: Plan: antiemetics as needed, minimize opioids as able, good glycemic control (5) Bipolar 1 disorder, mixed: Plan: continue lithium, fluvoxamine, paroxetine, at bedtime olanzapine Plan coughstarted approximately 2 weeks ago with a viral sounding illness, was treated in primary care with a course of prednisone and amoxicillin. Ordered respiratory bio fire which is negative, ordered chest x-ray which is clear. Will continue albuterol MDI which she thinks may have helped, we will schedule it since she does not seem to be getting any doses here DVT prophylaxisenoxaparin Admission and Anticipated Discharge Date Admission Date: May 12, 2024 Subjective had 1 liquid stool since yesterday however mainly diarrhea seems to have resol rosemarie, no further emesis, abdominal pain persist but improved since yesterday remains more right-sided to midline upper abdomen Physical Exam Physical Exam: PHYSICAL EXAMINATION Last 24h vital signs reviewed, see documentation in flowsheet General: looks more comfortable and relaxed lying in bed in room awake HEENT: Normocephalic, atraumatic, pupils round and equal, sclerae anicteric, no conjunctival injection, moist mucus membranes Lungs: Normal respiratory effort. slightly coarse to auscultation bilaterally. No RRW. coarse sounding cough persists Heart: Regular rate and rhythm, no murmurs. No JVD Abdomen: Soft, nondistended. active bowel sounds, remains tender to palpation right mid and upper central abdomen fairly tender to light touch still no rebound rigidity or guarding Extremities: Warm, dry, well-perfused. No extremity edema. Neuro: Alert and oriented x 4, face symmetric, moves 4 extremities well Psych: Normal affect and behavior Results & Data Results & Data Vital Signs (Past 12 Hours) Vital Signs Temp Pulse Resp BP Pulse Ox O2 Del Method 05/13/24 14:46 36.8 C 91 H 20 148/77 H 94 Room Air 05/13/24 07:32 36.7 C 84 16 138/80 97 Room Air PG Care Time/CCT Total # of Minutes Spent Total Time Spent with Patient: Total time spent is greater than 50% in coordination of care (as documented) at patient's floor/unit and/or counseling patient: Coding Level of Care Code 43873 SUB INP/OBS CARE 2/35MIN Diagnoses Acute pancreatitis K85.90 Type 2 diabetes mellitus E11.9 Chronic pancreatitis K86.1 Gastroparesis K31.84 Bipolar 1 disorder, mixed F31.60
[2024-05-13] MEDS: ALBUTEROL HFA 8 GM INHALER INH SCH (16:33)
[2024-05-13] MEDS: INSULIN ASPART PER UNIT CHARGE SC SCH (17:15)
[2024-05-14 07:19] VITALS: RESP 16
[2024-05-14 08:44] LABS: BUN Creatinine Ratio 9.1 (10-20); Bilirubin Direct 0.3 mg/dl (0-0.2); Calcium 9.3 mg/dl (8.6-10.3); Creatinine Clr Calc Pharmacy 68.2 ml/min; Est GFR (Non-African American) 84.5 ml/min; Potassium 3.5 mmol/L (3.5-5.1); Total Protein 6.1 gm/dl (6.0-8.3)
[2024-05-14 08:50] LABS: Hemoglobin 11.3 g/dl (12.0-16.0); Mean Corpuscular Hemoglobin 27.8 pg (25.0-34.0); Mean Corpuscular Hgb Conc 31.4 g/dL (32.0-36.0); Mean Corpuscular Volume 88.5 fL (80.0-100.0); Platelet Count 87 K/uL (130-400); RDW Coefficient of Variation 13.1 % (11.5-14.5); RDW Standard Deviation 42.4 fL (36.4-46.3); Red Blood Count 4.07 M/uL (4.20-5.40); White Blood Count 7.22 K/ul (4.8-10.8)
[2024-05-14 09:20] LABS: Platelet Estimate Decreased (Normal)
--- NOTE | 2024-05-14 14:31 | Ultrasound Report ---
ULTRASOUND RIGHT UPPER QUADRANT ABDOMEN CLINICAL HISTORY: Acute pancreatitis. Elevated hepatic transaminases. COMPARISON STUDY: Abdominal CT dated 05/12/2024 TECHNIQUE: Real-time, grayscale, and color flow sonography of the right upper quadrant of the abdomen was performed. Images are reviewed in the transverse and longitudinal planes. FINDINGS: Liver: The liver is top normal in size. Echotexture is heterogeneously increased indicating steatosis . There is no intrahepatic biliary ductal dilatation. The main portal vein is patent. Gallbladder: The gallbladder is surgically absent. The common bile duct measures up to 0.5 cm in diam eter. Pancreas: Visualized portions of the pancreatic head are normal in appearance. The majority of the pa ncreas is obscured by overlying bowel gas. Right kidney: Survey images of the right kidney demonstrate normal size and echotexture. There is no hydronephrosis. Ascites: None. IMPRESSION: 1. Hepatic steatosis. 2. Status post cholecystectomy. ACT 112: Negative or not required by law. Electronically signed by: Delta Evans M.D. 05/14/2024 2:29 PM
[2024-05-14 16:00] VITALS: BP 154/88; PULSE 74; TEMP 97.9; O2SAT 98
--- NOTE | 2024-05-14 17:01 | Discharge Summary ---
Discharge Summary Date of Service May 14, 2024 Principal Dx & Hospital Course #1 = Principal Diagnosis (1) Acute pancreatitis: 58-year-old woman with history of diabetes type 2 and gastroparesis admitted with acute on chronic pancreatitis. No clear precipitant as she no longer drinks alcohol and has no new medications, triglycerides are normal at less than 150, she is status postcholecystectomy and no evidence of choledocholithiasis based on CT imaging normal bilirubin AST and ALT. Slightly elevated alk phos seems insignificant and she does have history of mash. Previous episode of pancreatitis was note recent and associated with alcohol use per GI clinic notes. This has been followed by GI at [facility]. Reviewed 2023 clinic notes from Latrice Ramsey and Nathen Heath. She did have EUS in 02/2020 without findings concerning for malignancy. Subsequently followed by serial MRI abdomen. 07/2023 with pancreas atrophy and no mass. She had follow up MRI 01/2024 and reports that there were no new/concerning findings but I do not have access to a report for that MRI. 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 these abnormalities are unchanged on serial CTs in our system the most recent of which was this admission on 05/12 treated with aggressive IV fluids for 48 hours, required small amounts of opioids for pain control and IV antiemetics pain improved and she was able to advance her diet AST and ALT mildly worsened on 05/14 so obtained abdominal ultrasoundno evidence of biliary dilatation, fatty liver noted. bilirubin was normal. choledocholithiasis unlikely and I think the AST/ALT/alk phos abnormalities are related to her [employer] [facility] she will follow-up with [facility] gastroenterology (2) Type 2 diabetes mellitus: recent hemoglobin A1c 7.5% well-controlled. continue her usual regimen (3) Chronic pancreatitis: history of, see above (4) Gastroparesis: antiemetics as needed, minimize opioids as able, good glycemic control (5) Bipolar 1 disorder, mixed: continue lithium, fluvoxamine, paroxetine, at bedtime olanzapine Plan coughstarted approximately 2 weeks ago with a viral sounding illness, was treated in primary care with a course of prednisone and amoxicillin. Ordered respiratory bio fire which is negative, ordered chest x-ray which is clear. 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 Previous episode of pancreatitis was note recent and associated with alcohol use per GI clinic notes. This has been followed by GI at [facility]. Reviewed 2023 clinic notes from Latrice Ramsey and Nathen Heath. She did have EUS in 02/2020 without findings concerning for malignancy. Subsequently followed by serial MRI abdomen. 07/2023 with pancreas atrophy and no mass. She had follow up MRI 01/2024 and reports that there were no new/concerning findings but I do not have access to a report for that MRI. 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 I saw her in November of 2023 when she had pneumonia and new diagnosis of type 2 diabetes. After that she did well. She was again in [place] a few weeks ago taking care of her parents. She came back with a URI and was treated with amoxicillin and prednisone, both of which she completed. She has persistent cough but no shortness of breath or fevers. Yesterday afternoon she developed onset of right sided to mid upper abdominal pain associated with nausea vomiting and diarrhea. The pain continued to worsen so she came to the ED overnight. Pain was severe constant and radiating to the back. Remains significant but improved overnight and improved after IV morphine. She has not had any more N/V/D since coming to the ED. She does have a history of gastroparesis. She no longer drinks any alcohol. She has not started any new medications. Discharge Exam PHYSICAL EXAMINATION Last 24h vital signs reviewed, see documentation in flowsheet General: looks more comfortable and relaxed lying in bed in room awake HEENT: Normocephalic, atraumatic, pupils round and equal, sclerae anicteric, no conjunctival injection, moist mucus membranes Lungs: Normal respiratory effort. clear to auscultation bilaterally seems to be coughing less Heart: Regular rate and rhythm, no murmurs. No JVD Abdomen: Soft, nondistended. tender to palpation in epigastric area and slightly to right of midline but significantly improved from 48 hours ago no rebound rigidity or guarding Extremities: Warm, dry, well-perfused. No extremity edema. 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 Call non-emergency contact if: you have any medication questions, your symptoms worsen and you have a fever Follow-up/Referrals: Rocky Long MD [Primary Care Provider] - 05/25/24 2:45 pm Diet: Carb Consistent or DM2 and Low Fat Addtl Attending Provider Instructions: you were treated for acute on chronic pancreatitis a specific cause was not found, there was no evidence of a passed gallstone on CT or ultrasound, you do not drink alcohol any longer, triglycerides were normal, I do not see any suspicious medications that would trigger pancreatitis please follow-up with your bi tri operator at [facility] for your pancreas I cannot obtain a report from your abdominal MRI in January but sounds like it was unchanged from previous continue on a low-fat bland diet for now avoid too much fiber and avoid alcohol. You can normalize your diet over a few weeks as your pain resolves you can take pain medication and nausea medication as needed. It is safe to take acetaminophen maximum 3000 mg per day or ibuprofen as needed seek medical attention if you have worsening abdominal pain, severe nausea/vomiting, fever Pending Studies at Discharge: No Stand-Alone Forms: [employer], Smoking Cessation Medications and DC Order Prescriptions: New oxycodone 5 mg Tablet 5 mg PO Q4H PRN (Reason: pain) Qty: 10 0RF ondansetron 4 mg tablet,disintegrating 4 mg PO Q6H PRN (Reason: nausea and vomiting) Qty: 20 0RF Continued Ubrelvy 100 mg tablet 100 mg PO DAILY PRN (Reason: headache) Qty: 30 3RF Rx Instructions: She may repeat in 2 hours as needed albuterol sulfate [Ventolin HFA] 90 mcg/actuation HFA aerosol inhaler 2 puff inhalation Q4H PRN (Reason: shortness of breath or wheezing) Qty: 8.5 11RF levothyroxine [Synthroid] 50 mcg tablet 50 mcg PO QAM Qty: 90 3RF Linzess 72 mcg capsule 72 mcg PO DAILY Jardiance 10 mg tablet 10 mg PO DAILY Qty: 90 3RF fluticasone propionate 50 mcg/actuation spray,suspension 2 spray intranasal DAILY Qty: 16 11RF Rx Instructions: administer into each nostril ipratropium bromide 21 mcg (0.03 %) spray,non-aerosol 2 spray intranasal TID PRN (Reason: postnasal drip) Qty: 30 11RF Rx Instructions: administer into each nostril olanzapine 7.5 mg tablet 7.5 mg PO HS metformin 750 mg tablet extended release 24 hr 750 mg PO BID 90 Days Qty: 180 3RF paroxetine HCl 40 mg tablet 40 mg PO QAM Adult 50 Plus Probiotic 4 billion cell capsule 4,000 mmu cells PO DAILY Rx Instructions: administer with a meal famotidine 40 mg tablet 40 mg PO BID esomeprazole magnesium 40 mg capsule,delayed release(DR/EC) 40 mg PO QAM Qty: 90 3RF glimepiride 4 mg tablet 4 mg PO DAILY Qty: 30 2RF Rx Instructions: take one half tablet for 4 days then increase to one tablet daily ascorbic acid (vitamin C) [Vitamin C] 1,000 mg Tablet 1 g PO QAM fluvoxamine 100 mg Tablet 200 mg PO HS cholecalciferol (vitamin D3) [Vitamin D3] 1,000 unit Tablet 1,000 unit PO QAM lithium carbonate 300 mg capsule 300 mg PO HS vitamin E 400 unit Capsule 400 unit PO QAM thiamine HCl (vitamin B1) 100 mg tablet 100 mg PO QAM vitamin B complex Tablet 1 tab DAILY nystatin 100,000 unit/mL suspension 100,000 unit PO TID PRN (Reason: Mouth Irritation) triamcinolone acetonide 0.1 % paste 1 applic dental BID PRN (Reason: Mouth Irritation) Rx Instructions: use after food and/or drink and/or oral hygiene mometasone 0.1 % ointment 1 applic topical DAILY PRN (Reason: Itching) No Action (DME) OneTouch Verio test strips Strip See Rx Instructions .Route Qty: 100 11RF Rx Instructions: As directed (DME) lancets [OneTouch Delica Plus Lancet] 33 gauge misc See Rx Instructions .Route Qty: 100 12RF Rx Instructions: check blood sugar 3 times a day (DME) lancets [OneTouch Delica Plus Lancet] 33 gauge misc See Rx Instructions .Route Qty: 100 0RF Rx Instructions: As directed Discharge Orders: Discharge Order (Routine); Ordered 05/14/24 Ordered By: Rekha Mancilla Admission Data Admit Date/Time: 05/12/24 08:59 Attending Provider: Rekha Mancilla Admit Provider: Rekha Mancilla Primary Care Provider: Rocky Long Other Providers: Rekha Mancilla Other Interventions: Discharge Summary Assessment (RN) Last Done: 05/14/24 15:51 Hospital Stay Data Consultations 05/12/24 06:31 ED Decision to Admit Stat Diagnostic Imagining Performed 05/12/24 05:20 CT abd pelvis IV con only Stat 05/14/24 12:35 US abdomen limited Urgent Pending Results Patient Have Any Pending Studies at Discharge: No Discharge Instructions Given to Patient (Per Discharging Provider) you were treated for acute on chronic pancreatitis a specific cause was not found, there was no evidence of a passed gallstone on CT or ultrasound, you do not drink alcohol any longer, triglycerides were normal, I do not see any suspicious medications that would trigger pancreatitis please follow-up with your bi tri operator at [facility] for your pancreas I cannot obtain a report from your abdominal MRI in January but sounds like it was unchanged from previous continue on a low-fat bland diet for now avoid too much fiber and avoid alcohol. You can normalize your diet over a few weeks as your pain resolves you can take pain medication and nausea medication as needed. It is safe to take acetaminophen maximum 3000 mg per day or ibuprofen as needed seek medical attention if you have worsening abdominal pain, severe nausea/vomiting, fever Total Time Total Time Spent Total Time Spent (In Minutes): I personally spent: 35 minutes today on clinical care activities including: reviewing chart notes and vital signs reviewing labs reviewing studies examining and counseling the patient counseling the patient's family writing orders, discharge instructions, prescriptions documentation Coding Level of Care Code 96259 INP/OBS DISCH >30 MIN Diagnoses Acute pancreatitis K85.90 Type 2 diabetes mellitus E11.9 Chronic pancreatitis K86.1 Gastroparesis K31.84 Bipolar 1 disorder, mixed F31.60
== END 2024-05-14 16:27 | disposition home or self-care (01) ==
LOC: ED 05:00 → EDINP 05:00 → 3N 12:09

== ENCOUNTER 2024-05-23 20:19 | Inpatient (IN) ==
[2024-05-23] MEDS: SODIUM CHLORIDE 0.9% 1,000 ML IV ONE (21:12)
[2024-05-23 21:17] LABS: Basophils # (auto) 0.05 K/uL (0.00-0.20); Basophils % (auto) 0.3 %; Eosinophils # (auto) 0.04 K/uL (0.00-0.50); Eosinophils % (auto) 0.2 %; Hematocrit (blood only) 36.1 % (37.0-47.0); Hemoglobin 11.8 g/dl (12.0-16.0); Immature Granulocytes # (auto) 0.13 K/uL (0.01-0.20); Immature Granulocytes % (auto) 0.8 %; Lymphocytes # (auto) 0.93 K/uL (1.20-3.40); Lymphocytes % (auto) 5.6 %; Mean Corpuscular Hemoglobin 26.8 pg (25.0-34.0); Mean Corpuscular Hgb Conc 32.7 g/dL (32.0-36.0); Mean Platelet Volume 11.3 fL (9.4-12.4); Neutrophils % (auto) 87.1 %; Platelet Count 178 K/uL (130-400); RDW Coefficient of Variation 13.8 % (11.5-14.5); RDW Standard Deviation 41.2 fL (36.4-46.3); White Blood Count 16.65 K/ul (4.8-10.8)
[2024-05-23 21:46] LABS: Alanine Aminotransferase 35 U/L (7-52); Albumin Level 4.1 gm/dl (3.4-5.0); Alkaline Phosphatase 133 U/L (34-104); Anion Gap 14 (3-11); Aspartate Aminotransferase 32 U/L (13-39); Bilirubin Direct 0.2 mg/dl (0-0.2); Bilirubin,Total 0.6 mg/dl (0.2-1.0); Blood Urea Nitrogen 41 mg/dl (6-23); Calcium 9.8 mg/dl (8.6-10.3); Carbon Dioxide 19 mmol/L (21-32); Chloride 92 mmol/L (98-107); Creatinine Clr Calc Pharmacy 17.3 ml/min; Est GFR (African American) 17.8 ml/min; Est GFR (Non-African American) 15.4 ml/min; Glucose 153 mg/dl (70-99(Fasting)); Lipase < 3 U/L (11-82); Magnesium 1.8 mg/dl (1.7-2.4); Potassium 4.7 mmol/L (3.5-5.1); Sodium 125 mmol/L (136-145); Total Protein 7.5 gm/dl (6.0-8.3); Troponin I High Sensitivity 25.2 pg/ml (0-14)
--- NOTE | 2024-05-23 21:49 | Emergency Department Note ---
Impression & Plan Sepsis, Confusion, Pneumonia, Acute renal failure, Hyponatremia ED Provider Note NAME: MERLIN VALENTINE AGE: 58 SEX: F : 1965 ARRIVES VIA: Walk-In INFORMANT: Patient ED PROVIDER(S): Junior Paul MD CHIEF COMPLAINT: Sepsis, Confusion PLAN: Disposition: Admit MEDICAL DECISION MAKING: The patient is a pleasant 58-year-old woman with a past medical history of bipolar disorder, gastroparesis, type 2 diabetes, chronic pancreatitis who presents to the emergency department via walk-in and accompanied by her friend for evaluation of worsening generalized weakness, body aches, feverishness and confusion with trouble with word finding that developed afternoon. Per family report the patient has done this in the past and so they did not have the patient come to the hospital that day. However symptoms continued to worsen and so presented today for evaluation. Per report the patient's apparently went on a golfing trip today. Patient presents to the emergency department in the setting of being admitted to this facility from 05/12-05/14 for acute on chronic pancreatitis. On evaluation the patient was uncomfortable but no acute distress, afebrile with heart in the 110s and vitals otherwise stable. She appears clinically dry. She does have some difficulty with word finding however no focal deficits otherwise with symmetric strength in all extremities. She follows commands appropriately. EKG without overt acute ischemia. CXR demonstrates left upper lobe infiltrates suspicious for pneumonia per my preliminary independent interpretation. WBC 16.6 K with neutrophil bunamidine no left shift, nonspecific. Creatinine 3 with BUN of 41 consistent with acute renal failure increased from patient's baseline which was normal. Sodium is 125 with glucose of 153 with serum osmolality 279 but urine osmolality and urine sodium pending. HS troponin is 25.2, nonspecific. Lipase is not elevated. Procalcitonin is 3.8 consistent with suspicion for sepsis/pneumonia. CT of the head without contrast was performed and was negative for acute abnormalities per my preliminary independent or potation. CT of the on pelvis also performed with radiology dictation pending. However visualized left upper lobe does demonstrate airspace opacities. The patient was treated with IV fluid hydration with 2L NSS, >30 cc/kg ordered and empiric antibiotics with ceftriaxone. Daptomycin initially ordered however given pulmonary process will send MRSA swab. Will add doxycycline for additional atypical coverage. CT reports finalized and confirmed left upper lobe pneumonia. Otherwise no acute intra-abdominal process. Case was discussed with Dr. Rodriguez [facility] hospitalist, who will evaluate the patient for admission. Further management per admitting team. Triage Nursing notes reviewed and agree them. Prior/external medical records reviewed Vital Signs: reviewed Differential diagnosis: Sepsis, UTI, pneumonia, metabolic, electrolyte abnormalities, cardiac sources, intracerebral event, toxicologic, neurologic, as well as other pathologies. ER treatment provided: See below. Diagnostics interpreted by me: ECG: Sinus tachycardia, 124 bpm, no ectopy, no overt ST ovation or depression, QTc 433, QRS 94. Cardiac Monitoring: An order for continuous cardiac monitoring was placed and demonstrated Sinus tachycardia, 124 bpm, no ectopy Laboratory studies: See below Imaging studies: See below Consultation(s): Case was discussed with Dr. Rodriguez, [facility] hospitalist, who will evaluate the patient for admission. HPI: The patient is a pleasant 58-year-old woman with a past medical history of bipolar disorder, gastroparesis, type 2 diabetes, chronic pancreatitis who presents to the emergency department via walk-in and accompanied by her friend for evaluation of worsening generalized weakness, body aches, feverishness and confusion with trouble with word finding that developed afternoon. Per family report the patient has done this in the past and so they did not have the patient come to the hospital that day. However symptoms continued to worsen and so presented today for evaluation. Per report the patient's apparently went on a golfing trip today. Patient presents to the emergency department in the setting of being admitted to this facility from 05/12-05/14 for acute on chronic pancreatitis. ROS: See above HPI for pertinent positives & negatives. A total of 10 systems reviewed and were otherwise negative. VITALS:See Below PHYSICAL EXAMINATION: GENERAL: Awake, alert, ill-appearing, in no distress HENT: Normocephalic, atraumatic. Oropharynx with dry mucous membranes and otherwise unremarkable. EYES: Normal conjunctiva. Sclera non-icteric. EOMI. No nystamgus. PEARRL. NECK: Supple. No nuchal rigidity. FROM. No JVD. RESPIRATORY: Rhonchi of left upper lung ryan. Otherwise CTA. CARDIAC: Tachycardic rate, normal rhythm. Extremities warm and well perfused. Pulses equal. ABDOMEN: Soft, non-distended. No tenderness to palpation. No rebound or guarding. No masses. MUSCULOSKELETAL: Chest examination reveals no tenderness. The back is symmetrical on inspection without obvious abnormality. There is no CVA tenderness to palpation. No joint edema. LOWER EXTREMITIES: Calves are equal size bilaterally and non-tender. No edema. No discoloration. NEURO: Normal sensorium. No sensory or motor deficits noted. SKIN: No rash or jaundice noted. ED COURSE: Critical Care: I have personally spent greater than 35 minutes of critical care time in the direct management of this patient. This includes bedside care, interpretation of diagnostic studies, and testing, discussion with consultants, patient, and family members, and other required patient management activities. This 35 minutes is in excess of all separately billable procedures. Junior Paul MD Past Med/Surg History Problem List (Updated 05/24/24 @ 02:42 by Junior Paul MD) Hyponatremia (Acute) Elevated troponin Hyponatremia Acute renal failure (Acute) Pneumonia (Acute) Confusion (Acute) Sepsis (Acute) Hyperlipidemia Nausea vomiting and diarrhea (Acute) Acute hyperglycemia (Acute) Acute upper abdominal pain (Acute) Acute pancreatitis (Acute) Type 2 diabetes mellitus Hypertension Periodic limb movement disorder Thrush, oral Atopic dermatitis Synovitis Gastroparesis Mood disorder Asthma allergy induced-- inh prn Chronic pancreatitis Pneumonia (Acute) Hypothyroidism Gastritis and duodenitis Eczema Bronchitis Seasonal rhinitis Mild persistent asthma Vision disturbance Dysphonia Dry mouth Vocal cord dysfunction Post-COVID syndrome Pancreatic cyst Migraine headache COPD (chronic obstructive pulmonary disease) Mild cardiomegaly Cervical radiculopathy at C7 Anemia Steatohepatitis, nonalcoholic Bipolar disorder Pancreatic insufficiency Hoarseness Laryngopharyngeal reflux (LPR) Abdominal pain Sleep disorder Periodic limb movement Tongue ulcer Headache Serotonin syndrome Pancreatic fistula Confusion Paronychia of finger Yeast pharyngitis Dermatitis Elevated blood pressure reading without diagnosis of hypertension Dream enactment behavior Parasomnia Insomnia Restless leg syndrome Sleep apnea cpap Anxiety GERD (gastroesophageal reflux disease) Tremor Medical History Uncontrolled diabetes mellitus with hyperglycemia Rash Dehydration Impaired glucose metabolism Chronic cough Sleep apnea hx; tested 10/2022, no longer needs device Chronic pancreatitis Herpes simplex hx Internal hemorrhoids Weight loss unintentional in 2021-currently "holding at the same weight" Gastritis and duodenitis Bipolar 1 disorder, mixed Abnormal CT of the abdomen "muscle that's not working in her abdomen" Hypothyroidism Mild cardiomegaly pt unaware Acute kidney injury CHI (closed head injury) pt denies Migraine with aura and without status migrainosus, not intractable H/O: pneumonia 2021, no current symptoms History of colon polyps Depression Bipolar disorder Surgical History S/P excision of lipoma 2017 from arm Status post incision and drainage pancreatic pseudocyst 01/25/16 History of total hysterectomy with bilateral salpingo-oophorectomy (BSO) History of colonoscopy History of esophagogastroduodenoscopy (EGD) History of cholecystectomy History of tooth extraction all upper teeth History of wisdom tooth extraction Family History Mother Hypertension Diabetes Father Migraine Brother Multiple sclerosis Sister Migraine Other No family history of adverse response to anesthesia Denies family history of Ovarian cancer Prostate cancer Breast cancer Lung cancer Colorectal cancer Stroke Social History Smoking Status: Never smoker Tobacco Type: Cigarettes Second Hand Exposure: No; Do You Dip or Chew Tobacco: No; Hx Alcohol Use: No Hx Substance Use: No Preferred Language: Belarusian Communication Ability: Effective Change Room Attendant Required: No Beliefs That Will Affect Care: None marital status: marital status details: spouse:Perez Valentine Current Living Situation: Spouse Current Living Situation Comment: Lives at home with Feels Safe at Home: Yes Assistive Devices: CPAP Allergies Allergies Allergy/AdvReac Type Severity Reaction Status Date / Time cat dander Allergy Intermediate FACIAL Verified 05/18/24 14:15 SWELLING AND RASH clarithromycin [From Biaxin] AdvReac Unknown contraindic Verified 05/18/24 14:15 ation levofloxacin AdvReac Unknown contraindication Verified 05/18/24 14:15 to med Home Meds Home Medications Medication Instructions Recorded Confirmed ascorbic acid (vitamin C) 1,000 mg 1 g PO QAM 03/02/19 05/18/24 tablet (Vitamin C) cholecalciferol (vitamin D3) 25 1,000 unit PO QAM 03/02/19 05/18/24 mcg (1,000 unit) tablet (Vitamin D3) fluvoxamine 100 mg tablet 200 mg PO HS 03/02/19 05/18/24 vitamin E 268 mg (400 unit) capsule 400 unit PO QAM 07/04/19 05/18/24 lithium carbonate 300 mg capsule 300 mg PO HS 07/10/22 05/18/24 olanzapine 7.5 mg tablet 7.5 mg PO HS 03/05/23 05/18/24 thiamine HCl (vitamin B1) 100 mg 100 mg PO QAM 06/20/23 05/18/24 tablet vitamin B complex 1 tab DAILY 11/26/23 05/18/24 lactobacillus combination no.9 4 4,000 mmu cells PO DAILY 12/10/23 05/18/24 billion cell capsule (Adult 50 Plus Probiotic) paroxetine HCl 40 mg tablet 40 mg PO QAM 12/10/23 05/18/24 linaclotide 72 mcg capsule 72 mcg PO DAILY 02/03/24 05/18/24 (Linzess) famotidine 40 mg tablet 40 mg PO BID 02/04/24 05/18/24 mometasone 0.1 % topical ointment 1 applic topical DAILY PRN Itching 05/12/24 05/18/24 nystatin 100,000 unit/mL oral 100,000 unit PO TID PRN Mouth 05/12/24 05/18/24 suspension Irritation triamcinolone acetonide 0.1 % 1 applic dental BID PRN Mouth 05/12/24 05/18/24 dental paste Irritation Previous Rx's Medication Instructions Recorded fluticasone propionate 50 2 spray intranasal DAILY #16 grams 09/09/23 mcg/actuation nasal spray,suspension ipratropium bromide 21 mcg (0.03 2 spray intranasal TID PRN 09/09/23 %) nasal spray postnasal drip #30 mL lancets 33 gauge (OneTouch Delica #100 ea 11/28/23 Plus Lancet) ubrogepant 100 mg tablet (Ubrelvy) 100 mg PO DAILY PRN headache #30 12/12/23 tabs albuterol sulfate 90 mcg/actuation 2 puff inhalation Q4H PRN 12/25/23 aerosol inhaler (Ventolin HFA) shortness of breath or wheezing #8.5 grams esomeprazole magnesium 40 mg 40 mg PO QAM #90 caps 01/27/24 capsule,delayed release levothyroxine 50 mcg tablet 50 mcg PO QAM #90 tabs 01/28/24 (Synthroid) glimepiride 4 mg tablet 4 mg PO DAILY #30 tabs 02/04/24 lancets 33 gauge (OneTouch Delica #100 ea 02/04/24 Plus Lancet) blood sugar diagnostic ([facility] ea 05/06/24 Verio test strips) ondansetron 4 mg disintegrating 4 mg PO Q6H PRN nausea and 05/14/24 tablet vomiting #20 tabs oxycodone 5 mg tablet 5 mg PO Q4H PRN pain #10 tabs 05/14/24 empagliflozin 10 mg tablet 10 mg PO DAILY #90 tabs 05/18/24 (Jardiance) metformin 750 mg tablet,extended 750 mg PO BID 90 days #180 tabs 05/18/24 release 24 hr Results & Data (ED) Vital Signs Vital Signs - 24 hr 05/23/24 20:26 05/23/24 21:58 05/23/24 22:20 Temperature 36.6 C Temperature Source Temporal Artery Scan Pulse Rate 128 H 122 H Pulse Rate [Apical] 115 H Respiratory Rate 18 24 Blood Pressure 139/79 Blood Pressure [Left Arm] 107/66 Blood Pressure Mean 99 Blood Pressure Mean [Left Arm] 79 Blood Pressure Position Sitting Pulse Oximetry 93 94 Oxygen Delivery Method Room Air Room Air Sepsis Recent Fever Within 48 Hours No Sepsis New/Unexplained Change in Mental Status N/A Sepsis Action Taken by Nursing No Action Required Laboratory Data Attestation: I reviewed the patient's lab results. 05/23/24 20:57 05/23/24 20:57 Lab Results 05/23/24 05/23/24 05/24/24 Range/Units 20:57 22:44 00:30 WBC 16.65 H (4.8-10.8) K/ul RBC 4.40 (4.20-5.40) M/uL Hgb 11.8 L (12.0-16.0) g/dl Hct 36.1 L (37.0-47.0) % MCV 82.0 (80.0-100.0) fL MCH 26.8 (25.0-34.0) pg MCHC 32.7 (32.0-36.0) g/dL RDW Std Deviation 41.2 (36.4-46.3) fL RDW Coeff of Donald 13.8 (11.5-14.5) % Plt Count 178 (130-400) K/uL MPV 11.3 (9.4-12.4) fL Immature Gran % (Auto) 0.8 % Neut % (Auto) 87.1 % Lymph % (Auto) 5.6 % Vernon % (Auto) 6.0 % Eos % (Auto) 0.2 % Baso % (Auto) 0.3 % Neut # (Auto) 14.50 H (1.40-6.50) K/uL Lymph # (Auto) 0.93 L (1.20-3.40) K/uL Vernon # (Auto) 1.00 H (0.11-0.59) K/uL Eos # (Auto) 0.04 (0.00-0.50) K/uL Baso # (Auto) 0.05 (0.00-0.20) K/uL Immature Gran # (Auto) 0.13 (0.01-0.20) K/uL Sodium 125 L (136-145) mmol/L Potassium 4.7 (3.5-5.1) mmol/L Chloride 92 L (98-107) mmol/L Carbon Dioxide 19 L (21-32) mmol/L Anion Gap 14 H (3-11) BUN 41 H (6-23) mg/dl Creatinine 3.15 H (0.6-1.2) mg/dl Est Cr Clr Drug Dosing 17.3 ml/min Est GFR ( Amer) 17.8 ml/min Est GFR (Non-Af Amer) 15.4 ml/min BUN/Creatinine Ratio 13.0 (10-20) Glucose 153 H (70-99(Fasting)) mg/dl Osmolality 279 L (280-300) mOsm/kg Lactate 1.4 (0.4-2.0) mmol/L Calcium 9.8 (8.6-10.3) mg/dl Magnesium 1.8 (1.7-2.4) mg/dl Total Bilirubin 0.6 (0.2-1.0) mg/dl Direct Bilirubin 0.2 (0-0.2) mg/dl AST 32 (13-39) U/L ALT 35 (7-52) U/L Alkaline Phosphatase 133 H (34-104) U/L Troponin I High Sens 25.2 H 24.0 H (0-14) pg/ml Total Protein 7.5 (6.0-8.3) gm/dl Albumin 4.1 (3.4-5.0) gm/dl Lipase < 3 L (11-82) U/L Procalcitonin 3.84 H (0-0.5) ng/ml TSH 0.999 (0.300-4.500) uIu/ml Urine Color Urine Appearance (Clear) Urine pH (4.5-7.5) Ur Specific Baring (1.000-1.030) Urine Protein (Negative) Urine Glucose (UA) (Negative) Urine Ketones (Negative) Urine Blood (Negative) Urine Nitrite (Negative) Urine Bilirubin (Negative) Urine Urobilinogen (Negative) Ur Leukocyte Esterase (Negative) Urine WBC (Auto) (0-5) /hpf Urine RBC (Auto) (0-2) /hpf U Hyaline Cast (Auto) (0-2) /lpf U Epithel Cells (Auto) (0-2) /hpf Urine Bacteria (Auto) (None Seen) Amorphous Sediment (None Prsent) Urine Osmolality (500-800) mOsm/kg Ur Random Sodium mmol/L Nasal Screen MRSA (PCR) Negative (Negative) [place] 0.6 (0.6-1.2) mmol/L 05/24/24 Range/Units 00:46 WBC (4.8-10.8) K/ul RBC (4.20-5.40) M/uL Hgb (12.0-16.0) g/dl Hct (37.0-47.0) % MCV (80.0-100.0) fL MCH (25.0-34.0) pg MCHC (32.0-36.0) g/dL RDW Std Deviation (36.4-46.3) fL RDW Coeff of Donald (11.5-14.5) % Plt Count (130-400) K/uL MPV (9.4-12.4) fL Immature Gran % (Auto) % Neut % (Auto) % Lymph % (Auto) % Vernon % (Auto) % Eos % (Auto) % Baso % (Auto) % Neut # (Auto) (1.40-6.50) K/uL Lymph # (Auto) (1.20-3.40) K/uL Vernon # (Auto) (0.11-0.59) K/uL Eos # (Auto) (0.00-0.50) K/uL Baso # (Auto) (0.00-0.20) K/uL Immature Gran # (Auto) (0.01-0.20) K/uL Sodium (136-145) mmol/L Potassium (3.5-5.1) mmol/L Chloride (98-107) mmol/L Carbon Dioxide (21-32) mmol/L Anion Gap (3-11) BUN (6-23) mg/dl Creatinine (0.6-1.2) mg/dl Est Cr Clr Drug Dosing ml/min Est GFR ( Amer) ml/min Est GFR (Non-Af Amer) ml/min BUN/Creatinine Ratio (10-20) Glucose (70-99(Fasting)) mg/dl Osmolality (280-300) mOsm/kg Lactate (0.4-2.0) mmol/L Calcium (8.6-10.3) mg/dl Magnesium (1.7-2.4) mg/dl Total Bilirubin (0.2-1.0) mg/dl Direct Bilirubin (0-0.2) mg/dl AST (13-39) U/L ALT (7-52) U/L Alkaline Phosphatase (34-104) U/L Troponin I High Sens (0-14) pg/ml Total Protein (6.0-8.3) gm/dl Albumin (3.4-5.0) gm/dl Lipase (11-82) U/L Procalcitonin (0-0.5) ng/ml TSH (0.300-4.500) uIu/ml Urine Color Dark Yellow Urine Appearance Cloudy A (Clear) Urine pH 5.0 (4.5-7.5) Ur Specific Baring 1.018 (1.000-1.030) Urine Protein 1+ H (Negative) Urine Glucose (UA) 2+ H (Negative) Urine Ketones Negative (Negative) Urine Blood Negative (Negative) Urine Nitrite Negative (Negative) Urine Bilirubin Negative (Negative) Urine Urobilinogen Negative (Negative) Ur Leukocyte Esterase 1+ H (Negative) Urine WBC (Auto) 6-10 H (0-5) /hpf Urine RBC (Auto) 0-2 (0-2) /hpf U Hyaline Cast (Auto) >20 H (0-2) /lpf U Epithel Cells (Auto) 3-5 H (0-2) /hpf Urine Bacteria (Auto) None Seen (None Seen) Amorphous Sediment Present A (None Prsent) Urine Osmolality 347 L (500-800) mOsm/kg Ur Random Sodium 19 mmol/L Nasal Screen MRSA (PCR) (Negative) [place] (0.6-1.2) mmol/L Administered Medications Discontinued Medications Sodium Chloride (Nss) 1,000 mls @ 999 mls/hr IV .Q1H1M ONE Stop: 05/23/24 21:36 Last Infusion: 05/24/24 00:46 Dose: Infused Documented By: Admin: 05/23/24 21:12 Dose: 999 mls/hr Documented By: HUNG Acetaminophen (Ofirmev) 1,000 mg in 100 mls @ 400 mls/hr IV NOW STA Stop: 05/23/24 21:48 Last Infusion: 05/23/24 23:30 Dose: Infused Documented By: Admin: 05/23/24 22:02 Dose: 400 mls/hr Documented By: HUNG Famotidine (Pepcid 20mg Iv Push) 20 mg in 5 mls @ 2.5 mls/min IV NOW STA Stop: 05/23/24 21:35 Last Admin: 05/23/24 22:03 Dose: 2.5 mls/min Documented By: HUNG Ceftriaxone Sodium (Rocephin) 2,000 mg in 50 mls @ 100 mls/hr IV NOW STA Stop: 05/23/24 22:22 Last Infusion: 05/24/24 00:22 Dose: Infused Documented By: Admin: 05/23/24 23:31 Dose: 100 mls/hr Documented By: MIN Daptomycin 350 mg/ Syringe 7 mls @ 3.5 mls/min IV NOW STA; Protocol Stop: 05/23/24 21:54 Last Admin: 05/23/24 23:39 Dose: 3.5 mls/min Documented By: MIN Doxycycline Hyclate 100 mg/ (Dextrose) 100 mls @ 50 mls/hr IV NOW STA Stop: 05/24/24 01:13 Last Admin: 05/24/24 00:22 Dose: 50 mls/hr Documented By: MIN Sodium Chloride (Nss) 1,000 mls @ 999 mls/hr IV .Q1H1M ONE Stop: 05/24/24 00:15 Last Infusion: 05/24/24 02:23 Dose: Infused Documented By: Admin: 05/24/24 00:47 Dose: 999 mls/hr Documented By: MIN Ondansetron HCl (Ondansetron Inj 2 Mg/Ml 2 Ml Vial) 4 mg IV NOW STA Stop: 05/23/24 21:35 Last Admin: 05/23/24 22:02 Dose: 4 mg Documented By: [facility] Imaging Data Radiologist's Impression: Head CT 05/23/24 21:32 Exam(s): CT HEAD Without Contrast EXAM: CT Head Without Intravenous Contrast CLINICAL HISTORY: Reason for exam: confusion, aphasia. TECHNIQUE: Axial computed tomography images of the head/brain without intravenous contrast. CTDI is 35.92 mGy and DLP is 546.36 mGy-cm. Automated exposure control was utilized for the study. A dose lowering technique was utilized adhering to the principles of ALARA. COMPARISON: No relevant prior studies available. FINDINGS: No acute intracranial hemorrhage. No midline shift or mass effect. The territorial bonilla-white matter differentiation is maintained throughout. The ventricles and sulci are commensurate with age. The visualized orbits appear grossly unremarkable. The calvarium is intact. The visualized paranasal sinuses and mastoid air cells are grossly clear. IMPRESSION: No acute intracranial hemorrhage, midline shift, or mass effect. Electronically signed by: Jeff Burns MD 05/24/24 00:22 AM Abdomen/Pelvis CT 05/23/24 21:51 Exam(s): CT ABDOMEN + PELVIS Without Contrast EXAM: CT Abdomen and Pelvis Without Intravenous Contrast CLINICAL HISTORY: Reason for exam: abd pain, n/v, h/o pancreaitis. TECHNIQUE: Axial computed tomography images of the abdomen and pelvis without intravenous contrast. CTDI is 23.15 mGy and DLP is 1164.06 mGy-cm. Automated exposure control was utilized for the study. A dose lowering technique was utilized adhering to the principles of ALARA. COMPARISON: No relevant prior studies available. FINDINGS: Lung bases: Airspace consolidation in the LEFT upper lobe, recommend CXR. ABDOMEN: Liver: Hepatic steatosis. Gallbladder and bile ducts: Cholecystectomy. No ductal dilation. Pancreas: Unremarkable. No ductal dilation. Spleen: Splenomegaly measuring up to 16 cm. Adrenals: Unremarkable. No mass. Kidneys and ureters: Unremarkable. No hydronephrosis, nephrolithiasis, or obstructive uropathy. Stomach and bowel: Unremarkable. No obstruction. No mucosal thickening. PELVIS: Appendix: No findings to suggest acute appendicitis. Bladder: Unremarkable. No stones. Reproductive: Unremarkable as visualized. ABDOMEN and PELVIS: Intraperitoneal space: Unremarkable. No free air. No significant fluid collection. Bones/joints: No acute fracture. No dislocation. Soft tissues: Unremarkable. Vasculature: Unremarkable. No abdominal aortic aneurysm. Lymph nodes: Unremarkable. No enlarged lymph nodes. IMPRESSION: 1. No hydronephrosis, nephrolithiasis, or obstructive uropathy. 2. Airspace consolidation in the LEFT upper lobe, recommend CXR. 3. Hepatic steatosis. 4. Cholecystectomy. Electronically signed by: Jeff Burns MD 05/24/24 01:00 AM Discharge Plan Visit Data Chief Complaint: Confusion Stated Complaint: CONFUSION/DISORIENTED, POSSIBLE DEHYDRATION ED Provider: Junior Paul Discharge Problem: Sepsis, Confusion, Pneumonia, Acute renal failure, Hyponatremia Discharge Instructions Interventions: ED Discharge Assessment Last Done: 05/24/24 02:12 Discharge Problem: Sepsis Qualifiers: Sepsis type: sepsis due to unspecified organism Sepsis acute organ dysfunction status: with acute organ dysfunction Severe sepsis acute organ dysfunction type: acute renal failure Acute renal failure type: unspecified Severe sepsis shock status: without septic shock Qualified Code(s): A41.9 - Sepsis, unspecified organism Pneumonia Qualifiers: Pneumonia type: due to unspecified organism Laterality: left Lung location: u pper lobe of lung Qualified Code(s): J18.9 - Pneumonia, unspecified organism Acute renal failure Qualifiers: Acute renal failure type: unspecified Qualified Code(s): N17.9 - Acute kidney failure, unspecified
[2024-05-23] MEDS: ONDANSETRON INJ 2 MG/ML 2 ML VIAL IV STA (22:02)
[2024-05-23] MEDS: ACETAMINOPHEN 1,000 MG/100 ML VIAL IV STA (22:02)
[2024-05-23] MEDS: FAMOTIDINE 20MG IV PUSH 20 MG/5 ML SYR IV STA (22:03)
[2024-05-23] MEDS: cefTRIAXone SODIUM 2,000 MG/50 ML BAG IV STA (23:31)
[2024-05-23] MEDS: DAPTOmycin 350 MG in SYRINGE 0 ML IV STA (23:39)
[2024-05-24 00:10] LABS: Thyroid Stimulating Hormone 0.999 uIu/ml (0.300-4.500)
[2024-05-24] MEDS: DOXYCYCLINE HYCLATE 100 MG in DEXTROSE 5% MINI-B 100 ML IV STA (00:22)
--- NOTE | 2024-05-24 00:23 | CT Scan Report ---
Exam(s): CT HEAD Without Contrast EXAM: CT Head Without Intravenous Contrast CLINICAL HISTORY: Reason for exam: confusion, aphasia. TECHNIQUE: Axial computed tomography images of the head/brain without intravenous contrast. CTDI is 35.92 mGy and DLP is 546.36 mGy-cm. Automated exposure control was utilized for the study. A dose lowering technique was utilized adhering to the principles of ALARA. COMPARISON: No relevant prior studies available. FINDINGS: No acute intracranial hemorrhage. No midline shift or mass effect. The territorial bonilla-white matter differentiation is maintained throughout. The ventricles and sulci are commensurate with age. The visualized orbits appear grossly unremarkable. The calvarium is intact. The visualized paranasal sinuses and mastoid air cells are grossly clear. IMPRESSION: No acute intracranial hemorrhage, midline shift, or mass effect. Electronically signed by: Jeff Burns MD 05/24/24 00:22 AM
[2024-05-24] MEDS: SODIUM CHLORIDE 0.9% 1,000 ML IV ONE (00:47)
--- NOTE | 2024-05-24 01:01 | CT Scan Report ---
Exam(s): CT ABDOMEN + PELVIS Without Contrast EXAM: CT Abdomen and Pelvis Without Intravenous Contrast CLINICAL HISTORY: Reason for exam: abd pain, n/v, h/o pancreaitis. TECHNIQUE: Axial computed tomography images of the abdomen and pelvis without intravenous contrast. CTDI is 23.15 mGy and DLP is 1164.06 mGy-cm. Automated exposure control was utilized for the study. A dose lowering technique was utilized adhering to the principles of ALARA. COMPARISON: No relevant prior studies available. FINDINGS: Lung bases: Airspace consolidation in the LEFT upper lobe, recommend CXR. ABDOMEN: Liver: Hepatic steatosis. Gallbladder and bile ducts: Cholecystectomy. No ductal dilation. Pancreas: Unremarkable. No ductal dilation. Spleen: Splenomegaly measuring up to 16 cm. Adrenals: Unremarkable. No mass. Kidneys and ureters: Unremarkable. No hydronephrosis, nephrolithiasis, or obstructive uropathy. Stomach and bowel: Unremarkable. No obstruction. No mucosal thickening. PELVIS: Appendix: No findings to suggest acute appendicitis. Bladder: Unremarkable. No stones. Reproductive: Unremarkable as visualized. ABDOMEN and PELVIS: Intraperitoneal space: Unremarkable. No free air. No significant fluid collection. Bones/joints: No acute fracture. No dislocation. Soft tissues: Unremarkable. Vasculature: Unremarkable. No abdominal aortic aneurysm. Lymph nodes: Unremarkable. No enlarged lymph nodes. IMPRESSION: 1. No hydronephrosis, nephrolithiasis, or obstructive uropathy. 2. Airspace consolidation in the LEFT upper lobe, recommend CXR. 3. Hepatic steatosis. 4. Cholecystectomy. Electronically signed by: Jeff Burns MD 05/24/24 01:00 AM
--- NOTE | 2024-05-24 01:13 | History & Physical Report ---
Date of Service May 24, 2024 Assessment & Plan (1) Sepsis: Plan: - + SIRS with leukocytosis and tachycardia, likely source PNA-> given location of infiltrate concern for aspiration PNA - currently stable on room air - MRSA nares negative-> plan to cover for aspiration PNA with ceftriaxone, Flagyl - s/p 2L NSS in ED-> full sepsis bolus of 30cc/kg-> will continue NSS @125ml/hr for an additional 2L (2) Acute renal failure: Plan: - Creatine= 3.14, baseline= 1 - likely prerenal secondary to hypovolemia in the setting of acute illness - Fluids as per above, trend creatine (3) Confusion: Plan: - altered mental status without focal neurologic deficit - medical alcohol is pending - Head CT without acute pathology - likely metabolic encephalopathy in the setting of sepsis/electrolyte abnormalities, although polypharmacy also possible given combination of medications (4) Pneumonia: Plan: - concern for aspiration PNA, antibiotic regimen as per above (5) Hyponatremia: Plan: - Na-125 - likely hypovolemic hyponatremia in the setting of poor PO intake/acute illness - urine studies pending (6) Elevated troponin: Plan: - mildly elevated troponin, likely demand in the setting of sepsis - downtrending, EKG without acute ischemic changes (7) Type 2 diabetes mellitus: Plan: - well controlled, last hemoglobin a1c= 7.5 01/2024 - hold home medications - SSI while in patient (8) Bipolar disorder: Plan: - continue home medications (9) GERD (gastroesophageal reflux disease): Plan: - continue famotidine, PPI (10) Hypothyroidism: Plan: - TSH= 0.99 - continue levothyroxine Plan Code: Full Dispo: Med Surg with Tele VTE Prophylaxis: Heparin Diet: DM2 History of Present Illness Primary Care Provider: Rocky Long MD 58 year old female with a past medical history of DM2, gastroparesis, Bipolar disorder, hypothyroidism, 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 Friend is with her and helps provide some of the history. Symptoms started - cough, congestion, fatigue, subjective fever, intermittent vomiting. Her friend called her today and she was not make sense on the phone, which prompted her to bring her in. Friend notes some word finding difficulties and confusion, denies weakness, sensory changes. Patient's left for [place] trip today. Recently admitted from 05/12-05/14 for acute on chronic pancreatitis. At present she denies chest pain, dyspnea, abdominal pain, nausea. ED Course Significant for: SIRS+ with WBC=16, RY=793c. CXR with left upper lobe infiltrates. Na= 125. Creatine= 3.15. Procal= 3.8. Interventions-> 2L NSS, 100mg doxycycline, 350mg daptomycin,2g ceftriaxone. Allergies Allergy/AdvReac Type Severity Reaction Status Date / Time cat dander Allergy Intermediate FACIAL Verified 05/18/24 14:15 SWELLING AND RASH clarithromycin [From Biaxin] AdvReac Unknown contraindic Verified 05/18/24 14:15 ation levofloxacin AdvReac Unknown contraindication Verified 05/18/24 14:15 to med Home Medications Medication Instructions Recorded Confirmed Type ascorbic acid (vitamin C) 1,000 mg 1 g PO QAM 03/02/19 05/18/24 History tablet (Vitamin C) cholecalciferol (vitamin D3) 25 1,000 unit PO QAM 03/02/19 05/18/24 History mcg (1,000 unit) tablet (Vitamin D3) fluvoxamine 100 mg tablet 200 mg PO HS 03/02/19 05/18/24 History vitamin E 268 mg (400 unit) capsule 400 unit PO QAM 07/04/19 05/18/24 History lithium carbonate 300 mg capsule 300 mg PO HS 07/10/22 05/18/24 History olanzapine 7.5 mg tablet 7.5 mg PO HS 03/05/23 05/18/24 History thiamine HCl (vitamin B1) 100 mg 100 mg PO QAM 06/20/23 05/18/24 History tablet fluticasone propionate 50 2 spray intranasal DAILY #16 grams 09/09/23 05/18/24 Rx mcg/actuation nasal spray,suspension ipratropium bromide 21 mcg (0.03 2 spray intranasal TID PRN 09/09/23 05/18/24 Rx %) nasal spray postnasal drip #30 mL vitamin B complex 1 tab DAILY 11/26/23 05/18/24 History lancets 33 gauge (OneTouch Delica #100 ea 11/28/23 05/18/24 Rx Plus Lancet) lactobacillus combination no.9 4 4,000 mmu cells PO DAILY 12/10/23 05/18/24 History billion cell capsule (Adult 50 Plus Probiotic) paroxetine HCl 40 mg tablet 40 mg PO QAM 12/10/23 05/18/24 History ubrogepant 100 mg tablet (Ubrelvy) 100 mg PO DAILY PRN headache #30 12/12/23 05/18/24 Rx tabs albuterol sulfate 90 mcg/actuation 2 puff inhalation Q4H PRN 12/25/23 05/18/24 Rx aerosol inhaler (Ventolin HFA) shortness of breath or wheezing #8.5 grams esomeprazole magnesium 40 mg 40 mg PO QAM #90 caps 01/27/24 05/18/24 Rx capsule,delayed release levothyroxine 50 mcg tablet 50 mcg PO QAM #90 tabs 01/28/24 05/18/24 Rx (Synthroid) linaclotide 72 mcg capsule 72 mcg PO DAILY 02/03/24 05/18/24 History (Linzess) famotidine 40 mg tablet 40 mg PO BID 02/04/24 05/18/24 History glimepiride 4 mg tablet 4 mg PO DAILY #30 tabs 02/04/24 05/18/24 Rx lancets 33 gauge (OneTouch Delica #100 ea 02/04/24 05/18/24 Rx Plus Lancet) blood sugar diagnostic (OneTouch #100 ea 05/06/24 05/18/24 Rx Verio test strips) mometasone 0.1 % topical ointment 1 applic topical DAILY PRN Itching 05/12/24 05/18/24 History nystatin 100,000 unit/mL oral 100,000 unit PO TID PRN Mouth 05/12/24 05/18/24 History suspension Irritation triamcinolone acetonide 0.1 % 1 applic dental BID PRN Mouth 05/12/24 05/18/24 History dental paste Irritation ondansetron 4 mg disintegrating 4 mg PO Q6H PRN nausea and 05/14/24 05/18/24 Rx tablet vomiting #20 tabs oxycodone 5 mg tablet 5 mg PO Q4H PRN pain #10 tabs 05/14/24 05/18/24 Rx empagliflozin 10 mg tablet 10 mg PO DAILY #90 tabs 05/18/24 05/18/24 Rx (Jardiance) metformin 750 mg tablet,extended 750 mg PO BID 90 days #180 tabs 05/18/24 05/18/24 Rx release 24 hr Past Med/Surg History Problem List (Updated 05/24/24 @ 02:42 by Junior Paul MD) Hyponatremia (Acute) Elevated troponin Hyponatremia Acute renal failure (Acute) Pneumonia (Acute) Confusion (Acute) Sepsis (Acute) Hyperlipidemia Nausea vomiting and diarrhea (Acute) Acute hyperglycemia (Acute) Acute upper abdominal pain (Acute) Acute pancreatitis (Acute) Type 2 diabetes mellitus Hypertension Periodic limb movement disorder Thrush, oral Atopic dermatitis Synovitis Gastroparesis Mood disorder Asthma allergy induced-- inh prn Chronic pancreatitis Pneumonia (Acute) Hypothyroidism Gastritis and duodenitis Eczema Bronchitis Seasonal rhinitis Mild persistent asthma Vision disturbance Dysphonia Dry mouth Vocal cord dysfunction Post-COVID syndrome Pancreatic cyst Migraine headache COPD (chronic obstructive pulmonary disease) Mild cardiomegaly Cervical radiculopathy at C7 Anemia Steatohepatitis, nonalcoholic Bipolar disorder Pancreatic insufficiency Hoarseness Laryngopharyngeal reflux (LPR) Abdominal pain Sleep disorder Periodic limb movement Tongue ulcer Headache Serotonin syndrome Pancreatic fistula Confusion Paronychia of finger Yeast pharyngitis Dermatitis Elevated blood pressure reading without diagnosis of hypertension Dream enactment behavior Parasomnia Insomnia Restless leg syndrome Sleep apnea cpap Anxiety GERD (gastroesophageal reflux disease) Tremor Medical History Uncontrolled diabetes mellitus with hyperglycemia Rash Dehydration Impaired glucose metabolism Chronic cough Sleep apnea hx; tested 10/2022, no longer needs device Chronic pancreatitis Herpes simplex hx Internal hemorrhoids Weight loss unintentional in 2021-currently "holding at the same weight" Gastritis and duodenitis Bipolar 1 disorder, mixed Abnormal CT of the abdomen "muscle that's not working in her abdomen" Hypothyroidism Mild cardiomegaly pt unaware Acute kidney injury CHI (closed head injury) pt denies Migraine with aura and without status migrainosus, not intractable H/O: pneumonia 2021, no current symptoms History of colon polyps Depression Bipolar disorder Surgical History S/P excision of lipoma 2017 from arm Status post incision and drainage pancreatic pseudocyst 01/25/16 History of total hysterectomy with bilateral salpingo-oophorectomy (BSO) History of colonoscopy History of esophagogastroduodenoscopy (EGD) History of cholecystectomy History of tooth extraction all upper teeth History of wisdom tooth extraction Family History Mother Hypertension Diabetes Father Migraine Brother Multiple sclerosis Sister Migraine Other No family history of adverse response to anesthesia Denies family history of Ovarian cancer Prostate cancer Breast cancer Lung cancer Colorectal cancer Stroke Social History Smoking Status: Never smoker Tobacco Type: Cigarettes Second Hand Exposure: No; Do You Dip or Chew Tobacco: No; Hx Alcohol Use: No Hx Substance Use: No Preferred Language: Lao Communication Ability: Effective Curator Of Collections Required: No Beliefs That Will Affect Care: None marital status: marital status details: spouse:Perez Valentine Current Living Situation: Spouse Current Living Situation Comment: Lives at home with Feels Safe at Home: Yes Safety Concerns: Feels Safe At This Time Assistive Devices: CPAP and Denture - Upper Review of Systems Review of Systems: As per above Physical Exam Physical Exam: Constitutional: well-appearing, no acute distress HEENT: NCAT, no conjunctival injection CV: regular rhythm, no murmur appreciated, extremities well-perfused, no LE edema Resp: Scattered wheezing, + rhonchi left, no increased work of breathing GI: soft, nondistended, nontender MSK: no gross deformities appreciated Skin: warm, dry, no rash appreciated Neuro: alert, oriented, no focal neurologic deficit appreciated- CN II-XII intact, moving all extremties Results & Data Results & Data Vital Signs (Past 12 Hours) Vital Signs Temp Pulse Pulse Resp BP BP Pulse Ox 05/23/24 22:20 115 H 24 107/66 94 05/23/24 21:58 122 H 05/23/24 20:26 36.6 C 128 H 18 139/79 93 O2 Del Method 05/23/24 22:20 Room Air 05/23/24 21:58 05/23/24 20:26 Room Air Supervising Physician Co-Signing Physician Notes Attending addendum: I have physically seen this patient, have supervised the medical residents activities, and agree with the H&P unless as otherwise noted. Assessment and Plan: Sepsis secondary to left upper lobe pneumonia/probable aspiration- MRSA nares negative Ceftriaxone 2 g IV daily Flagyl 500 mg IV every 8 hours Duonebs every 4 hours while awake and every 2 hours when necessary. Acute kidney injury- Creatinine 3.15, with base 0.77- Status post 2 L normal saline bolus from the ED Continue with normal saline at 125 mL/h x 2 additional liters Repeat laboratories in a.m. Confusion/metabolic encephalopathy/likely secondary to sepsis as above, and hyponatremia CT head negative Treat pneumonia and follow-up for symptomatology improvement Hyponatremia- Sodium 125 Appears hypovolemic secondary to poor oral intake IV fluids as above Sodium chloride 1 g p.o. twice daily to be considered if not improved in a.m. [place] may be contributing even though the levels normal Alcohol level less than 10 Diabetes mellitus- Hold empagliflozin, glimepiride, metformin Place on Accu-Cheks with NovoLog SSI Resident Activity Tracking Resident Involvement: Resident Care Provided Care Provided: Adult [facility] Medicine (7) Type 2 diabetes mellitus Diabetes mellitus complication status: without complication Diabetes mellitus joint terminal attack controller insulin use: without prison use Qualified Code(s): E11.9 - Type 2 diabetes mellitus without complications
[2024-05-24 01:36] LABS: Amorphous Sediment Urine Present (None Prsent); Appearance Urine Cloudy (Clear); Bacteria Urine Automated None Seen (None Seen); Bilirubin Urine Negative (Negative); Blood Urine Negative (Negative); Cast Urine Automated >20 /lpf (0-2); Color Urine Dark Yellow; Glucose Urine UA 2+ (Negative); Ketones Urine Negative (Negative); Leukocyte Esterase Urine 1+ (Negative); Nitrite Urine Negative (Negative); Protein Urine 1+ (Negative); RBC Urine Automated 0-2 /hpf (0-2); Specific Gravity Urine 1.018 (1.000-1.030); Urobilinogen Urine Negative (Negative)
[2024-05-24] MEDS ORDERED: GLUCAGON FOR INJ 1 MG VIAL SQ PRN (02:48)
[2024-05-24] MEDS ORDERED: GLUCOSE 40% GEL 15 GM TUBE PO PRN (02:48)
[2024-05-24] MEDS ORDERED: GLUCOSE 10 TAB/TUBE PO PRN (02:48)
[2024-05-24] MEDS: SODIUM CHLORIDE 0.9% 1,000 ML IV SCH (03:10)
[2024-05-24] MEDS: LEVOTHYROXINE SODIUM 50 MCG TABLET PO SCH (05:50)
[2024-05-24 06:25] LABS: Basophils # (auto) 0.04 K/uL (0.00-0.20); Basophils % (auto) 0.4 %; Hematocrit (blood only) 31.2 % (37.0-47.0); Hemoglobin 10.1 g/dl (12.0-16.0); Immature Granulocytes # (auto) 0.08 K/uL (0.01-0.20); Immature Granulocytes % (auto) 0.7 %; Lymphocytes # (auto) 0.68 K/uL (1.20-3.40); Lymphocytes % (auto) 6.3 %; Mean Corpuscular Hemoglobin 26.9 pg (25.0-34.0); Mean Corpuscular Hgb Conc 32.4 g/dL (32.0-36.0); Mean Platelet Volume 11.5 fL (9.4-12.4); Monocytes # (auto) 0.69 K/uL (0.11-0.59); Monocytes % (auto) 6.4 %; Neutrophils # (auto) 9.28 K/uL (1.40-6.50); Neutrophils % (auto) 86.2 %; Platelet Count 128 K/uL (130-400); RDW Standard Deviation 42.2 fL (36.4-46.3); Red Blood Count 3.76 M/uL (4.20-5.40); White Blood Count 10.77 K/ul (4.8-10.8)
--- NOTE | 2024-05-24 06:32 | Billing Data ---
Date of Service May 24, 2024 Coding Level of Care Code 16412 INT INP/OBS CARE
[2024-05-24 06:36] LABS: Albumin Globulin Ratio 1.2 (0.9-2); Albumin Level 3.2 gm/dl (3.4-5.0); BUN Creatinine Ratio 12.1 (10-20); Bilirubin,Total 0.4 mg/dl (0.2-1.0); Calcium 8.5 mg/dl (8.6-10.3); Creatinine Clr Calc Pharmacy 14.4 ml/min; Est GFR (Non-African American) 12.9 ml/min; Globulin 2.7 gm/dl (2.5-4.0); Potassium 4.2 mmol/L (3.5-5.1); Total Protein 5.9 gm/dl (6.0-8.3)
--- NOTE | 2024-05-24 06:46 | XRay Report ---
XR chest 1V portable CLINICAL HISTORY: Sepsis. COMPARISON STUDY: Chest CT November 26, 2023. Chest radiograph May 12, 2024. FINDINGS: Lung volumes are normal. Left upper lung consolidation has developed. There is no pneumotho rax or pleural effusion. Cardiac size is normal. Mediastinal contours are normal. There is no evidenc e for pulmonary edema. IMPRESSION: Interval development of left upper lobe consolidation consistent with pneumonia. Post tr eatment radiographs to ensure resolution are recommended. ACT 112: Negative or not required by law. Electronically signed by: Otto Hill M.D. 05/24/2024 6:44 AM
[2024-05-24] MEDS: CARBOHYDRATES FOR HYPOGLYCEMIA PO PRN (07:20)
[2024-05-24] MEDS: 4.5GM X1 IV STA (07:41)
[2024-05-24] MEDS: linaCLOtide 72 MCG CAPSULE PO SCH (08:09)
[2024-05-24] MEDS: PARoxetine HCL 20 MG TAB PO SCH (08:10)
[2024-05-24] MEDS: INSULIN ASPART PER UNIT CHARGE SC SCH (08:10)
[2024-05-24] MEDS: PANTOprazole 40 MG TAB PO SCH (08:10)
[2024-05-24] MEDS: FAMOTIDINE 40 MG TABLET PO SCH (08:10)
[2024-05-24] MEDS: DOXYCYCLINE HYCLATE 100 MG in DEXTROSE 5% MINI-B 100 ML IV SCH (08:26)
[2024-05-24] MEDS ORDERED: metroNIDAZOLE 500 MG/100 ML BAG IV SCH (09:00)
[2024-05-24 09:02] LABS: Influenza A virus by PCR Negative (Neg); Influenza B virus by PCR Negative (Neg); RSV by PCR Negative (Neg); SARS CoV2 RNA(COVID-19) Ceph NEGATIVE (Negative)
[2024-05-24] MEDS: HEPARIN SOD 5,000 UNIT/0.5 ML VIAL SQ SCH (09:18)
[2024-05-24] MEDS: D5W AND LACTATED RINGERS 1,000 ML IV SCH (13:30)
[2024-05-24 14:48] LABS: BUN Creatinine Ratio 12.7 (10-20); Creatinine Clr Calc Pharmacy 16.2 ml/min; Est GFR (African American) 17.2 ml/min; Est GFR (Non-African American) 14.9 ml/min; Potassium 3.9 mmol/L (3.5-5.1)
--- NOTE | 2024-05-24 15:02 | Hospitalist Progress Note ---
Date of Service May 24, 2024 Assessment & Plan (1) Severe sepsis: Plan: 2nd to BROCK pneumonia. Patient is at risk of nosocomial acquired infection in light of recent hospitalization (05/12 to 05/14) thus needs broader gram negative coverage. Stop rocephin, stop flagyl. Change to zosyn for gram negative pneumonia coverage. Doxycycline IV for atypical coverage. Defer on MRSA coverage - MRSA MANAGER STRATEGY swab negative. Consider speech therapy eval - r/o aspiration, but no reported history of such. Follow blood cx's. (2) Hypoglycemia secondary to sulfonylurea: Plan: Checked cortisol level - very robust --> level 32. Has not received any insulin to date. Home DM regimen - Jardiance, glimepiride, metformin. Certainly severe sepsis can cause hypoglycemia. However, the severity & refractoriness of her low sugars is likely due to persistent effects of her sulfonylurea in the setting of acute renal failure. Today - despite adding 5% dextrose to her fluids and ultimately titration of that dextrose to 10% - her BSGs have remained low in the 50s/60s. Thus - start octreotide 100mcg SC TID. If still hypoglycemic despite octreotide then add IV steroids. Cont serial BSG checks. (3) ATN (acute tubular necrosis): Plan: Oliguric since admission. ATN is sepsis-associated. No evidence of obstruction on admission CT. Serial BMPs obtained today - peak Cr 3.6, falling to 3.2 this afternoon. Baseline Cr <1. Cont copious IV fluids. Serial BMPs. (4) Acute metabolic encephalopathy: Plan: 2nd to ATN/ERNIE, severe sepsis/pneumonia, hypoglycemia, etc. Treat all components. Serial exams. Head CT at admission negative. (5) Acute renal failure: Plan: 2nd to sepsis-associated ATN see above (6) Pneumonia: Plan: BROCK at risk of gram negatives given her recent hospital stay can't rule out aspiration pneumonia either MRSA swab negative change rocephin/flagyl to IV zosyn + IV doxy (latter for atypicals) defer on MRSA coverage will ask speech therapy to see in consult for bedside swallow (7) Hyponatremia: Plan: Presenting Na level - 125 Now 132 improved with isotonic fluids cont NS bmp am Cortisol level wnl TSH wnl (8) Elevated troponin: Plan: mild elevation at 25 this is most likely myocardial demand ischemia in the setting of severe sepsis no evidence of ACS (9) Type 2 diabetes mellitus: Plan: hemoglobin a1c = 7.5% - 01/2024 hold ALL oral home medications now with refractory hypoglycemia - see #2 above (10) Bipolar disorder: Plan: continue home medications including lithium (level acceptable), olanzapine, fluvoxamine (11) GERD (gastroesophageal reflux disease): Plan: continue famotidine, PPI but reduce dose of H2 richy due to ERNIE/ATN (12) Hypothyroidism: Plan: TSH= 0.99 continue levothyroxine (13) Chronic pancreatitis: Plan: known history of such based on records prior h/p pancreatic pseudocyst recent hospitalization 1 week ago for acute/chronic pancreatitis lipase level undetectable today follows with [facility] for her chronic pancreatitis, MASH without fibrosis/cirrhosis, etc. (14) Gastroparesis: Plan: history of such per records (15) COPD (chronic obstructive pulmonary disease): Plan: no flare at this time (16) Sleep apnea: Plan: on CPAP at home ? (17) Metabolic dysfunction-associated steatohepatitis (MASH): Plan: in light of altered MS check ammonia level am Plan DVT proph - SC Heparin 5000 units BID updated at bedside PT/OT evals requested in addition to speech therapy Patient medically complex & ill; extensive chart review completed 2x's today; complex care coordination & management including Rx of refractory hypoglycemia, pneumonia, etc. total time spent on all care activities today - 80 minutes Admission and Anticipated Discharge Date Admission Date: May 24, 2024 Subjective patient feels terrible no appetite continues with nausea with dry heaves frequently coughing no sputum very weak confused per during the visit it was hard for patient to answer questions appropriately telemetry wnl overnight of note - patient had been in [place] for her father's , returned to [facility] April 28 Review of Systems Review of Systems: gen - no fevers or chills; fatigued, weak, no appetite cv - no chest pain, no orthopnea, no edema pulm - mild dyspnea, cough (mainly dry) GI - no abd pain, ongoing nausea/dry heaves Physical Exam Physical Exam: gen - looks ill/toxic, confused, dehydrated, coughing, no distress or pain neck - no JVD mouth - MM dry heart - tachy, s1 s2, no murmur lungs - left upper lobe crackles (anterior chest, and posterior left chest); left base clear; right lung clear; no respiratory distress or wheeze abd - soft NT ND BS+ ext - no edema, pulses 2+ b/l psych - confused Results & Data Results & Data Vital Signs (Past 12 Hours) Vital Signs Temp Pulse Pulse Resp BP Pulse Ox O2 Del Method 05/24/24 14:12 107 H 05/24/24 11:51 37.4 C 112 H 18 129/70 97 Room Air 05/24/24 08:02 37.4 C 103 H 17 104/66 90 Room Air 05/24/24 07:30 118 H Laboratory Results Laboratory Results - last 24 hr 05/24/24 05/24/24 05/24/24 05:45 07:18 07:30 WBC 10.77 RBC 3.76 L Hgb 10.1 L Hct 31.2 L MCV 83.0 MCH 26.9 MCHC 32.4 RDW Std Deviation 42.2 RDW Coeff of Donald 14.0 Plt Count 128 L MPV 11.5 Immature Gran % (Auto) 0.7 Neut % (Auto) 86.2 Lymph % (Auto) 6.3 [place] % (Auto) 6.4 Eos % (Auto) 0.0 Baso % (Auto) 0.4 Neut # (Auto) 9.28 H Lymph # (Auto) 0.68 L [place] # (Auto) 0.69 H Eos # (Auto) 0.00 Baso # (Auto) 0.04 Immature Gran # (Auto) 0.08 Sodium 131 L Potassium 4.2 Chloride 102 Carbon Dioxide 18 L Anion Gap 11 BUN 44 H Creatinine 3.64 H D Est Cr Clr Drug Dosing 14.4 Est GFR ( Amer) 15.0 Est GFR (Non-Af Amer) 12.9 BUN/Creatinine Ratio 12.1 Glucose 54 L POC Glucose 59 L* Calcium 8.5 L Total Bilirubin 0.4 AST 29 ALT 32 Alkaline Phosphatase 110 H Total Protein 5.9 L D Albumin 3.2 L Globulin 2.7 Albumin/Globulin Ratio 1.2 Random Cortisol SARS-CoV-2 (PCR) NEGATIVE Influenza Type A (PCR) Negative Influenza Type B (PCR) Negative RSV (RT-PCR) Negative 05/24/24 05/24/24 05/24/24 07:42 08:08 12:12 WBC RBC Hgb Hct MCV MCH MCHC RDW Std Deviation RDW Coeff of Donald Plt Count MPV Immature Gran % (Auto) Neut % (Auto) Lymph % (Auto) [place] % (Auto) Eos % (Auto) Baso % (Auto) Neut # (Auto) Lymph # (Auto) [place] # (Auto) Eos # (Auto) Baso # (Auto) Immature Gran # (Auto) Sodium Potassium Chloride Carbon Dioxide Anion Gap BUN Creatinine Est Cr Clr Drug Dosing Est GFR ( Amer) Est GFR (Non-Af Amer) BUN/Creatinine Ratio Glucose POC Glucose 66 L* 100 H 65 L* Calcium Total Bilirubin AST ALT Alkaline Phosphatase Total Protein Albumin Globulin Albumin/Globulin Ratio Random Cortisol SARS-CoV-2 (PCR) Influenza Type A (PCR) Influenza Type B (PCR) RSV (RT-PCR) 05/24/24 05/24/24 05/24/24 12:13 12:42 14:08 WBC RBC Hgb Hct MCV MCH MCHC RDW Std Deviation RDW Coeff of Donald Plt Count MPV Immature Gran % (Auto) Neut % (Auto) Lymph % (Auto) [place] % (Auto) Eos % (Auto) Baso % (Auto) Neut # (Auto) Lymph # (Auto) [place] # (Auto) Eos # (Auto) Baso # (Auto) Immature Gran # (Auto) Sodium 132 L Potassium 3.9 Chloride 102 Carbon Dioxide 20 L Anion Gap 10 BUN 41 H Creatinine 3.24 H D Est Cr Clr Drug Dosing 16.2 Est GFR ( Amer) 17.2 Est GFR (Non-Af Amer) 14.9 BUN/Creatinine Ratio 12.7 Glucose 83 POC Glucose 65 L* 76 Calcium 9.0 Total Bilirubin AST ALT Alkaline Phosphatase Total Protein Albumin Globulin Albumin/Globulin Ratio Random Cortisol 32.48 SARS-CoV-2 (PCR) Influenza Type A (PCR) Influenza Type B (PCR) RSV (RT-PCR) 05/24/24 05/24/24 05/24/24 17:12 17:13 20:05 WBC RBC Hgb Hct MCV MCH MCHC RDW Std Deviation RDW Coeff of Donald Plt Count MPV Immature Gran % (Auto) Neut % (Auto) Lymph % (Auto) [place] % (Auto) Eos % (Auto) Baso % (Auto) Neut # (Auto) Lymph # (Auto) [place] # (Auto) Eos # (Auto) Baso # (Auto) Immature Gran # (Auto) Sodium Potassium Chloride Carbon Dioxide Anion Gap BUN Creatinine Est Cr Clr Drug Dosing Est GFR ( Amer) Est GFR (Non-Af Amer) BUN/Creatinine Ratio Glucose POC Glucose 64 L* 71 59 L* Calcium Total Bilirubin AST ALT Alkaline Phosphatase Total Protein Albumin Globulin Albumin/Globulin Ratio Random Cortisol SARS-CoV-2 (PCR) Influenza Type A (PCR) Influenza Type B (PCR) RSV (RT-PCR) Diagnostic Findings Chest X-Ray 05/23/24 20:36 XR chest 1V portable CLINICAL HISTORY: Sepsis. COMPARISON STUDY: Chest CT November 26, 2023. Chest radiograph May 12, 2024. FINDINGS: Lung volumes are normal. Left upper lung consolidation has developed. There is no pneumothorax or pleural effusion. Cardiac size is normal. Mediastinal contours are normal. There is no evidence for pulmonary edema. IMPRESSION: Interval development of left upper lobe consolidation consistent with pneumonia. Post treatment radiographs to ensure resolution are recommended. ACT 112: Negative or not required by law. Electronically signed by: Otto Hill M.D. 05/24/2024 6:[address] 05/23/24 21:32 Exam(s): CT HEAD Without Contrast EXAM: CT Head Without Intravenous Contrast CLINICAL HISTORY: Reason for exam: confusion, aphasia. TECHNIQUE: Axial computed tomography images of the head/brain without intravenous contrast. CTDI is 35.92 mGy and DLP is 546.36 mGy-cm. Automated exposure control was utilized for the study. A dose lowering technique was utilized adhering to the principles of ALARA. COMPARISON: No relevant prior studies available. FINDINGS: No acute intracranial hemorrhage. No midline shift or mass effect. The territorial bonilla-white matter differentiation is maintained throughout. The ventricles and sulci are commensurate with age. The visualized orbits appear grossly unremarkable. The calvarium is intact. The visualized paranasal sinuses and mastoid air cells are grossly clear. IMPRESSION: No acute intracranial hemorrhage, midline shift, or mass effect. Electronically signed by: Jeff Burns MD 05/24/24 00:22 AM Abdomen/Pelvis CT 05/23/24 21:51 Exam(s): CT ABDOMEN + PELVIS Without Contrast EXAM: CT Abdomen and Pelvis Without Intravenous Contrast CLINICAL HISTORY: Reason for exam: abd pain, n/v, h/o pancreaitis. TECHNIQUE: Axial computed tomography images of the abdomen and pelvis without intravenous contrast. CTDI is 23.15 mGy and DLP is 1164.06 mGy-cm. Automated exposure control was utilized for the study. A dose lowering technique was utilized adhering to the principles of ALARA. COMPARISON: No relevant prior studies available. FINDINGS: Lung bases: Airspace consolidation in the LEFT upper lobe, recommend CXR. ABDOMEN: Liver: Hepatic steatosis. Gallbladder and bile ducts: Cholecystectomy. No ductal dilation. Pancreas: Unremarkable. No ductal dilation. Spleen: Splenomegaly measuring up to 16 cm. Adrenals: Unremarkable. No mass. Kidneys and ureters: Unremarkable. No hydronephrosis, nephrolithiasis, or obstructive uropathy. Stomach and bowel: Unremarkable. No obstruction. No mucosal thickening. PELVIS: Appendix: No findings to suggest acute appendicitis. Bladder: Unremarkable. No stones. Reproductive: Unremarkable as visualized. ABDOMEN and PELVIS: Intraperitoneal space: Unremarkable. No free air. No significant fluid collection. Bones/joints: No acute fracture. No dislocation. Soft tissues: Unremarkable. Vasculature: Unremarkable. No abdominal aortic aneurysm. Lymph nodes: Unremarkable. No enlarged lymph nodes. IMPRESSION: 1. No hydronephrosis, nephrolithiasis, or obstructive uropathy. 2. Airspace consolidation in the LEFT upper lobe, recommend CXR. 3. Hepatic steatosis. 4. Cholecystectomy. Electronically signed by: Jeff Burns MD 05/24/24 01:00 AM Microbiology 05/23/24 20:57 Blood Aerobic Blood Culture - Preliminary No growth in Aerobic bottle after 24 hours. 05/23/24 20:57 Blood Anaerobic Blood Culture - Preliminary No growth in Anaerobic bottle after 24 hours. PG Care Time/CCT Total # of Minutes Spent Total Time Spent with Patient: Total time spent is greater than 50% in coordination of care (as documented) at patient's floor/unit and/or counseling patient: Prolonged Care Time Prolonged Care Time: Yes Total Prolonged Care Time: 80 Coding Level of Care Code 15585 SUB INP/OBS CARE 3/50MIN (25 - SIGNIFICANT, SEPARATELY IDENTIFIABLE ) Diagnoses Severe sepsis A41.9; R65.20 Hypoglycemia secondary to sulfonylurea T38.3X1A; E16.0 ATN (acute tubular necrosis) N17.0 Acute metabolic encephalopathy G93.41 Acute renal failure N17.9 Acute renal failure type: unspecified Pneumonia J18.9 Laterality: left Lung location: upper lobe of lung Pneumonia type: due to unspecified organism Hyponatremia E87.1 Elevated troponin R79.89 Type 2 diabetes mellitus without complication, without long-term current use of insulin E11.9 Diabetes mellitus complication status: without complication Diabetes mellitus prison insulin use: without terminal carman use Bipolar disorder F31.9 GERD (gastroesophageal reflux disease) K21.9 Hypothyroidism E03.9 Chronic pancreatitis K86.1 Gastroparesis K31.84 COPD (chronic obstructive pulmonary disease) J44.9 Sleep apnea G47.30 Metabolic dysfunction-associated steatohepatitis (MASH) K75.81 Additional Codes Prolonged Care Time - Prolonged Care Time: Yes ([id number]) (5) Acute renal failure Acute renal failure type: unspecified Qualified Code(s): N17.9 - Acute kidney failure, unspecified (6) Pneumonia Laterality: left Lung location: upper lobe of lung Pneumonia type: due to unspecified organism Qualified Code(s): J18.9 - Pneumonia, unspecified organism (9) Type 2 diabetes mellitus Diabetes mellitus complication status: without complication Diabetes mellitus terminal carman insulin use: without prison use Qualified Code(s): E11.9 - Type 2 diabetes mellitus without complications
[2024-05-24] MEDS: PIPERACILLIN/TAZOBACTAM 4.5 GM/100 ML BAG IV SCH (17:25)
[2024-05-24] MEDS: D10 NSS IV SCH (20:15)
[2024-05-24] MEDS: DEXTROSE 50% 50 ML SYRINGE IV PRN (20:27)
[2024-05-24] MEDS: OLANZAPINE 2.5 MG TAB PO SCH (20:45)
[2024-05-24] MEDS: fluvoxaMINE MALEATE 50 MG TAB PO SCH (20:45)
[2024-05-24] MEDS: LITHIUM CARBONATE 300 MG TAB PO SCH (20:45)
[2024-05-24] MEDS: OCTREOTIDE ACETATE 100 MCG/ML VIAL SQ SCH (21:14)
[2024-05-24] MEDS ORDERED: cefTRIAXone SODIUM 2,000 MG/50 ML BAG IV SCH (22:00)
[2024-05-24] MEDS: ACETAMINOPHEN 325 MG TAB PO PRN (23:26)
[2024-05-25 06:13] LABS: Basophils # (auto) 0.01 K/uL (0.00-0.20); Basophils % (auto) 0.2 %; Eosinophils # (auto) 0.01 K/uL (0.00-0.50); Eosinophils % (auto) 0.2 %; Hematocrit (blood only) 28.5 % (37.0-47.0); Hemoglobin 9.3 g/dl (12.0-16.0); Immature Granulocytes # (auto) 0.05 K/uL (0.01-0.20); Immature Granulocytes % (auto) 1.1 %; Lymphocytes # (auto) 0.44 K/uL (1.20-3.40); Lymphocytes % (auto) 9.7 %; Mean Corpuscular Hemoglobin 27.4 pg (25.0-34.0); Mean Corpuscular Hgb Conc 32.6 g/dL (32.0-36.0); Mean Corpuscular Volume 83.8 fL (80.0-100.0); Mean Platelet Volume 11.6 fL (9.4-12.4); Monocytes # (auto) 0.31 K/uL (0.11-0.59); Monocytes % (auto) 6.9 %; Neutrophils % (auto) 81.9 %; Platelet Count 105 K/uL (130-400); RDW Standard Deviation 42.8 fL (36.4-46.3); White Blood Count 4.52 K/ul (4.8-10.8)
[2024-05-25 06:19] LABS: Albumin Globulin Ratio 1.2 (0.9-2); Albumin Level 3.1 gm/dl (3.4-5.0); BUN Creatinine Ratio 13.7 (10-20); Bilirubin,Total 0.4 mg/dl (0.2-1.0); Est GFR (African American) 28.8 ml/min; Est GFR (Non-African American) 24.8 ml/min; Globulin 2.5 gm/dl (2.5-4.0); Potassium 3.5 mmol/L (3.5-5.1); Total Protein 5.6 gm/dl (6.0-8.3)
--- NOTE | 2024-05-25 06:33 | Electrocardiogram Report ---
Test Reason : Blood Pressure : */* mmHG Vent. Rate : 124 BPM Atrial Rate : 124 BPM P-R Int : 146 ms QRS Dur : 94 ms QT Int : 302 ms P-R-T Axes : 11 3 51 degrees QTcB Int : 433 ms Sinus tachycardia Otherwise normal ECG When compared with ECG of 26-Nov-2023 15:15, No significant change was found Confirmed by Natalio Garcia ([id number]) on 05/25/2024 6:33:18 AM Referred By: REFERRED SELF Confirmed By: Natalio Garcia
[2024-05-25] MEDS: FAMOTIDINE 20 MG TAB PO SCH (09:49)
[2024-05-25] MEDS ORDERED: STAT IV/IM STA (10:12)
[2024-05-25] MEDS: SODIUM BICARBONATE 8.4% 150 MEQ in DEXTROSE 5% 1,000 ML IV SCH (11:00)
[2024-05-25] MEDS: PIPERACILLIN/TAZOBACTAM 4.5 GM/100 ML BAG IV SCH (12:16)
--- NOTE | 2024-05-25 17:01 | Hospitalist Progress Note ---
Date of Service May 25, 2024 Assessment & Plan (1) Severe sepsis: Plan: 2nd to BROCK pneumonia. Patient is at risk of nosocomial acquired infection in light of recent hospitalization (05/12 to 05/14) thus needs broader gram negative coverage. improving still remains acutely ill, still febrile overnight, leukocytosis resolved, not on oxygen continue pip-tazo Doxycycline IV for atypical coverage. discussed with speech therapist - no overt aspiration on bedside swallow eval, if aspiration was a factor here it probably occurred back when she had prolonged nausea and vomiting with the onset of a pancreatitis thus a transient event. her baseline mental status is normal with no risk factors for aspiration Follow blood cx's. (2) Hypoglycemia secondary to sulfonylurea: Plan: Checked cortisol level - very robust --> level 32. Home DM regimen - Jardiance, glimepiride, metformin. a.m. cortisol was 32 triggered by sepsis and sulfonylurea seems to have resolved stop octreotide, continue D5 bicarbonate drip for metabolic acidosis, continue holding above meds, start as needed short acting insulin only, monitor serial blood glucose checks (3) ATN (acute tubular necrosis): Plan: ATN is sepsis-associated. No evidence of obstruction on admission CT. urine output and creatinine significantly improved, today's creatinine improved from threes down to 2.1. Continue sodium bicarbonate drip for metabolic acidosis (4) Acute metabolic encephalopathy: Plan: 2nd to ATN/ERNIE, severe sepsis/pneumonia, hypoglycemia, etc. Head CT at admission negative. resolved (5) Acute renal failure: Plan: see above (6) Pneumonia: Plan: BROCK see above (7) Hyponatremia: Plan: Presenting Na level - 125. resolved with IV fluids and treatment of sepsis Cortisol level wnl TSH wnl (8) Elevated troponin: Plan: mild elevation at 25 this is most likely myocardial demand ischemia in the setting of severe sepsis no evidence of ACS (9) Type 2 diabetes mellitus: Plan: hemoglobin a1c = 7.5% - 01/2024 oral medications held short acting insulin only at this time because of refractory hypoglycemia at time of admission (10) Bipolar disorder: Plan: continue home medications including lithium (level acceptable), olanzapine, fluvoxamine (11) GERD (gastroesophageal reflux disease): Plan: continue famotidine, PPI but reduce dose of H2 richy due to ERNIE/ATN (12) Hypothyroidism: Plan: TSH= 0.99 continue levothyroxine (13) Chronic pancreatitis: Plan: known history of such based on records prior h/p pancreatic pseudocyst recent hospitalization 1 week ago for acute/chronic pancreatitis lipase level undetectable today follows with [facility] for her chronic pancreatitis, MASH without fibrosis/cirrhosis, etc. Plan gastroparesis COPD Obstructive sleep apnea - clarify whether on home CPAP Mash DVT proph - SC Heparin 5000 units BID updated at bedside 05/25 PT/OT Admission and Anticipated Discharge Date Admission Date: May 24, 2024 Rafael Lemus is seen with her in the room, she is sitting up in the chair by the window. She had a low appetite ate only a little bit of fruit. Continues coughing otherwise feels much better today her reports that confusion has resolved she has no more abdominal pain related to her recent bout of acute pancreatitis, her reports that until development of pneumonia symptoms she had been eating and drinking normally with no ongoing abdominal pain Physical Exam 2 Physical Exam: PHYSICAL EXAMINATION Last 24h vital signs reviewed, see documentation in flowsheet General: comfortable appearing, no distress HEENT: Normocephalic, atraumatic, pupils round and equal, sclerae anicteric, no conjunctival injection, moist mucus membranes Lungs: Normal respiratory effort. coughing. Left upper lobe crackles heard posteriorly otherwise fairly clear Heart: Regular rate and rhythm, no murmurs. No JVD Abdomen: Soft, nontender, nondistended. Bowel sounds present. Extremities: Warm, dry, well-perfused. No extremity edema. Neuro: Alert and oriented x 4, face symmetric, moves 4 extremities well Psych: Normal affect and behavior Results & Data Results & Data Vital Signs (Past 12 Hours) Vital Signs Temp Pulse Pulse Resp BP Pulse Ox O2 Del Method 05/25/24 15:18 37.2 C 100 H 26 H 122/70 92 Room Air 05/25/24 14:01 96 H 05/25/24 12:25 37.5 C 96 H 28 H 110/60 96 Room Air 05/25/24 10:52 36.7 C 65 18 124/79 95 Room Air 05/25/24 07:35 36.6 C 93 H 26 H 111/71 90 Room Air 05/25/24 07:26 87 Laboratory Results 05/25/24 05:40 05/25/24 05:40 PG Care Time/CCT Total # of Minutes Spent Total Time Spent with Patient: Total time spent is greater than 50% in coordination of care (as documented) at patient's floor/unit and/or counseling patient: Coding Level of Care Code 59629 SUB INP/OBS CARE 3/50MIN Diagnoses Severe sepsis A41.9; R65.20 Hypoglycemia secondary to sulfonylurea T38.3X1A; E16.0 ATN (acute tubular necrosis) N17.0 Acute metabolic encephalopathy G93.41 Acute renal failure N17.9 Acute renal failure type: unspecified Pneumonia J18.9 Laterality: left Lung location: upper lobe of lung Pneumonia type: due to unspecified organism Hyponatremia E87.1 Elevated troponin R79.89 Type 2 diabetes mellitus without complication, without long-term current use of insulin E11.9 Diabetes mellitus chcf insulin use: without long term acute care registered nurse use Diabetes mellitus complication status: without complication Bipolar disorder F31.9 GERD (gastroesophageal reflux disease) K21.9 Hypothyroidism E03.9 Chronic pancreatitis K86.1 (5) Acute renal failure Acute renal failure type: unspecified Qualified Code(s): N17.9 - Acute kidney failure, unspecified (6) Pneumonia Laterality: left Lung location: upper lobe of lung Pneumonia type: due to unspecified organism Qualified Code(s): J18.9 - Pneumonia, unspecified organism (9) Type 2 diabetes mellitus Diabetes mellitus long term acute care registered nurse insulin use: without chcf use Diabetes mellitus complication status: without complication Qualified Code(s): E11.9 - Type 2 diabetes mellitus without complications
[2024-05-25] MEDS: ALBUTEROL HFA 8 GM INHALER INH PRN (23:21)
[2024-05-26 09:04] LABS: Calcium 9.1 mg/dl (8.6-10.3); Creatinine Clr Calc Pharmacy 37.2 ml/min; Est GFR (African American) 46.7 ml/min; Est GFR (Non-African American) 40.3 ml/min; Potassium 3.3 mmol/L (3.5-5.1)
[2024-05-26] MEDS ORDERED: NYSTATIN SUSP 500,000 U/5 ML UDC PO PRN (11:00)
[2024-05-26] MEDS: POTASSIUM CHLORIDE CRTAB 20 MEQ TABCR PO STA (12:25)
--- NOTE | 2024-05-26 18:02 | Hospitalist Progress Note ---
Date of Service May 26, 2024 Assessment & Plan (1) Severe sepsis: Plan: 58 y/o with recent admission for acute pancreatitis admitted with sepsis due to BROCK pneumonia sepsis resolved, afebrile >24h and leukocytosis resolved. blood cx NGTD continue doxycycline and pip-tazo for pneumonia add guaifenex and flutter valve (2) Hypoglycemia secondary to sulfonylurea: Plan: Home DM regimen - Jardiance, glimepiride, metformin. a.m. cortisol was 32 triggered by sepsis and sulfonylurea resolved (3) ATN (acute tubular necrosis): Plan: ATN is sepsis-associated. No evidence of obstruction on admission CT. Cr improved to 1.4, metabolic acidosis resolved -stop bicarb drip, stop IV fluids -AM BMP (4) Acute metabolic encephalopathy: Plan: 2nd to ATN/ERNIE, severe sepsis/pneumonia, hypoglycemia, etc. Head CT at admission negative. resolved (5) Acute renal failure: Plan: see above (6) Pneumonia: Plan: BROCK see above (7) Hyponatremia: Plan: Presenting Na level - 125. resolved with IV fluids and treatment of sepsis Cortisol level wnl TSH wnl (8) Elevated troponin: Plan: mild elevation at 25 this is most likely myocardial demand ischemia in the setting of severe sepsis no evidence of ACS (9) Type 2 diabetes mellitus: Plan: hemoglobin a1c = 7.5% - 01/2024 oral medications held short acting insulin only at this time because of refractory hypoglycemia at time of admission BG at goal 05/26 (10) Bipolar disorder: Plan: continue home medications including lithium (level acceptable), olanzapine, fluvoxamine (11) GERD (gastroesophageal reflux disease): Plan: continue famotidine, PPI but reduce dose of H2 richy due to ERNIE/ATN (12) Hypothyroidism: Plan: TSH= 0.99 continue levothyroxine (13) Chronic pancreatitis: Plan: known history of such based on records prior h/p pancreatic pseudocyst recent hospitalization 1 week ago for acute/chronic pancreatitis lipase level undetectable on admission follows with [facility] for her chronic pancreatitis, MASH without fibrosis/cirrhosis, etc. Plan gastroparesis COPD Obstructive sleep apnea - order HS CPAP Mash DVT proph - SC Heparin 5000 units BID updated at bedside 05/25 PT/OT Admission and Anticipated Discharge Date Admission Date: May 24, 2024 Subjective doing better, no confusion, has significant cough, no abdominal pain, no chest pain Physical Exam 2 Physical Exam: PHYSICAL EXAMINATION Last 24h vital signs reviewed, see documentation in flowsheet General: was sleeping but awoke easily HEENT: Normocephalic, atraumatic, pupils round and equal, sclerae anicteric, no conjunctival injection, moist mucus membranes Lungs: nonlabored, very coarse BROCK ant and post, frequent cough Heart: Regular rate and rhythm, no murmurs. No JVD Abdomen: Soft, nontender, nondistended. Bowel sounds present. Extremities: Warm, dry, well-perfused. No extremity edema. Neuro: Alert and oriented x 4, face symmetric, moves 4 extremities well Psych: Normal affect and behavior Results & Data Results & Data Vital Signs (Past 12 Hours) Vital Signs Temp Pulse Pulse Resp BP Pulse Ox O2 Del Method 05/26/24 14:29 36.8 C 90 18 130/79 91 Room Air 05/26/24 07:17 80 05/26/24 07:04 36.6 C 87 18 117/67 94 Room Air Laboratory Results 05/25/24 05:40 05/26/24 08:21 PG Care Time/CCT Total # of Minutes Spent Total Time Spent with Patient: Total time spent is greater than 50% in coordination of care (as documented) at patient's floor/unit and/or counseling patient: Coding Level of Care Code 00557 SUB INP/OBS CARE 2/35MIN Diagnoses Severe sepsis A41.9; R65.20 Hypoglycemia secondary to sulfonylurea T38.3X1A; E16.0 ATN (acute tubular necrosis) N17.0 Acute metabolic encephalopathy G93.41 Acute renal failure N17.9 Acute renal failure type: unspecified Pneumonia J18.9 Laterality: left Lung location: upper lobe of lung Pneumonia type: due to unspecified organism Hyponatremia E87.1 Elevated troponin R79.89 Type 2 diabetes mellitus without complication, without long-term current use of insulin E11.9 Diabetes mellitus terminal system operator insulin use: without terminal system operator use Diabetes mellitus complication status: without complication Bipolar disorder F31.9 GERD (gastroesophageal reflux disease) K21.9 Hypothyroidism E03.9 Chronic pancreatitis K86.1 (5) Acute renal failure Acute renal failure type: unspecified Qualified Code(s): N17.9 - Acute kidney failure, unspecified (6) Pneumonia Laterality: left Lung location: upper lobe of lung Pneumonia type: due to unspecified organism Qualified Code(s): J18.9 - Pneumonia, unspecified organism (9) Type 2 diabetes mellitus Diabetes mellitus longterm insulin use: without terminal system operator use Diabetes mellitus complication status: without complication Qualified Code(s): E11.9 - Type 2 diabetes mellitus without complications
[2024-05-26] MEDS: guaiFENesin 600 MG TABCR PO SCH (20:36)
--- NOTE | 2024-05-26 22:57 | Communication Note ---
Date of Service: May 26, 2024 Concern for increased oxygen requirement to 2L, some increased lethargy. Evaluated pt at bedside, she was arousable and answering all questions approp riately, but feel back to sleep easily. Lungs with some scattered rhonchi. No focal neurological deficits. Given that she has not required supplemental oxygen this admission and seems more lethargic, repeat labs obtained. CBC, VBG, CMP, troponin, lactate. CXR with increased opacity on left side compared to prior -> ordered CT chest. K=2.7, Mg=1.5-> repleted. Trop with increase from 24-> 34- no EKG obtained without ischemic changes. Will trend, likely demand in the setting of acute infection. Mild transaminitis- ammonia= 30.
[2024-05-26 23:35] LABS: Base Excess VBG 9.7 mEq/L; HCO3 VBG 34 mmol/L; Oxygen Saturation VBG 93.1 %; PCO2 VBG 45 mmHg (38-50); PO2 VBG 62 mmHg; pH VBG 7.49 (7.36-7.41)
[2024-05-26 23:45] LABS: Eosinophils # (auto) 0.03 K/uL (0.00-0.50); Eosinophils % (auto) 0.8 %; Hematocrit (blood only) 25.7 % (37.0-47.0); Hemoglobin 8.2 g/dl (12.0-16.0); Immature Granulocytes # (auto) 0.04 K/uL (0.01-0.20); Immature Granulocytes % (auto) 1.1 %; Lymphocytes # (auto) 0.62 K/uL (1.20-3.40); Lymphocytes % (auto) 17.1 %; Mean Corpuscular Hemoglobin 26.8 pg (25.0-34.0); Mean Corpuscular Hgb Conc 31.9 g/dL (32.0-36.0); Mean Platelet Volume 12.2 fL (9.4-12.4); Monocytes # (auto) 0.34 K/uL (0.11-0.59); Monocytes % (auto) 9.4 %; Neutrophils # (auto) 2.59 K/uL (1.40-6.50); Neutrophils % (auto) 71.6 %; Platelet Count 98 K/uL (130-400); RDW Coefficient of Variation 13.5 % (11.5-14.5); RDW Standard Deviation 41.1 fL (36.4-46.3); Red Blood Count 3.06 M/uL (4.20-5.40); White Blood Count 3.62 K/ul (4.8-10.8)
[2024-05-26 23:57] LABS: Albumin Globulin Ratio 1.2 (0.9-2); Albumin Level 2.7 gm/dl (3.4-5.0); BUN Creatinine Ratio 10.9 (10-20); Bilirubin,Total 0.7 mg/dl (0.2-1.0); Calcium 8.6 mg/dl (8.6-10.3); Creatinine Clr Calc Pharmacy 41.3 ml/min; Est GFR (Non-African American) 45.7 ml/min; Globulin 2.3 gm/dl (2.5-4.0); Magnesium 1.5 mg/dl (1.7-2.4); Potassium 2.7 mmol/L (3.5-5.1)
[2024-05-27 00:03] LABS: Troponin I High Sensitivity 34.8 pg/ml (0-14)
[2024-05-27] MEDS: MAGNESIUM SULFATE / D5W 1 GM/100 ML BAG IV SCH (00:49)
[2024-05-27] MEDS: POTASSIUM CHLORIDE CRTAB 20 MEQ TABCR PO STA ×2 (00:49→11:06)
--- NOTE | 2024-05-27 05:26 | CT Scan Report ---
Exam(s): CT CHEST Without Contrast EXAM: CT Chest Without Intravenous Contrast CLINICAL HISTORY: Reason for exam: Increased hypoxia-> worsening CXR. TECHNIQUE: Axial computed tomography images of the chest without intravenous contrast. CTDI is 17.92 mGy and DLP is 529.8 mGy-cm. Automated exposure control was utilized for the study. A dose lowering technique was utilized adhering to the principles of ALARA. COMPARISON: No relevant prior studies available. FINDINGS: Lungs: There is extensive airspace disease seen in the left upper lobe. No mass. No consolidation. Pleural space: There is moderate left-sided effusion. No pneumothorax. Heart: Unremarkable. No cardiomegaly. No significant pericardial effusion. No significant coronary artery calcifications. Bones/joints: See above. Soft tissues: Unremarkable. Vasculature: Unremarkable. No thoracic aortic aneurysm. Lymph nodes: Unremarkable. No enlarged lymph nodes. Spleen: Moderate splenomegaly. IMPRESSION: 1. Left upper lobe pneumonia 2. Left pleural effusion Electronically signed by: Matthew Izquierdo MD 05/27/24 05:25 AM
--- NOTE | 2024-05-27 06:41 | XRay Report ---
XR chest 1V portable CLINICAL HISTORY: Increased oxygen requirement COMPARISON STUDY: Chest radiograph May 23, 2024. FINDINGS: Extensive left upper lobe consolidation with air bronchograms has progressed. There is a sm all left pleural effusion. There is no pneumothorax. A right lung is clear. Cardiomediastinal silhoue tte is stable. No evidence for pulmonary edema. IMPRESSION: 1. Increase in extensive left upper lobe consolidation consistent with pneumonia. 2. Small left pleural effusion. ACT 112: Negative or not required by law. Electronically signed by: Otto Hill M.D. 05/27/2024 6:40 AM
[2024-05-27 07:01] LABS: BUN Creatinine Ratio 10.8 (10-20); Calcium 9.2 mg/dl (8.6-10.3); Creatinine Clr Calc Pharmacy 44.2 ml/min; Est GFR (African American) 57.3 ml/min; Est GFR (Non-African American) 49.4 ml/min; Potassium 3.6 mmol/L (3.5-5.1)
[2024-05-27 07:10] LABS: Troponin I High Sensitivity 14.9 pg/ml (0-14)
--- NOTE | 2024-05-27 07:19 | Hospitalist Progress Note ---
Date of Service May 27, 2024 Assessment & Plan (1) Severe sepsis: Plan: 58 y/o with recent admission for acute pancreatitis admitted with sepsis due to BROCK pneumonia sepsis resolved, afebrile >24h and leukocytosis resolved. blood cx NGTD increased O2 requirement overnight (0-->2L), CT chest obtained - extensive BROCK consolidation, L pleural effusion - Lasix 20 mg IV x 1 with potassium, a.m. BMP continue doxycycline and pip-tazo for pneumonia attempt to get sputum culture although it has been nonproductive thus far, MRSA nares was negative guaifenex and flutter valve monitor moderate L effusion - reviewed CT images, effusion may not be large enough for thoracentesis follow up imaging to resolution (2) Hypoglycemia secondary to sulfonylurea: Plan: Home DM regimen - Jardiance, glimepiride, metformin. a.m. cortisol was 32 triggered by sepsis and sulfonylurea resolved (3) ATN (acute tubular necrosis): Plan: ATN is sepsis-associated. No evidence of obstruction on admission CT. Cr improved to 1.2, metabolic acidosis resolved - a.m. BMP ordered (4) Acute metabolic encephalopathy: Plan: 2nd to ATN/ERNIE, severe sepsis/pneumonia, hypoglycemia, etc. Head CT at admission negative. resolved (5) Acute renal failure: Plan: see above (6) Pneumonia: Plan: BROCK see above (7) Hyponatremia: Plan: Presenting Na level - 125. resolved with IV fluids and treatment of sepsis Cortisol level wnl TSH wnl (8) Elevated troponin: Plan: mild elevation at 25 --> 35 -->15 this is most likely myocardial demand ischemia in the setting of severe sepsis no evidence of ACS (9) Type 2 diabetes mellitus: Plan: hemoglobin a1c = 7.5% - 01/2024 oral medications held short acting insulin only at this time because of refractory hypoglycemia at time of admission BG at goal 05/27, reviewed poc glucose (10) Bipolar disorder: Plan: continue home medications including lithium (level acceptable), olanzapine, fluvoxamine (11) GERD (gastroesophageal reflux disease): Plan: continue famotidine, PPI but reduce dose of H2 richy due to ERNIE/ATN (12) Hypothyroidism: Plan: TSH= 0.99 continue levothyroxine (13) Chronic pancreatitis: Plan: known history of such based on records prior h/p pancreatic pseudocyst recent hospitalization 1 week ago for acute/chronic pancreatitis lipase level undetectable on admission follows with [facility] for her chronic pancreatitis, MASH without fibrosis/cirrhosis, etc. Plan elevated AST and ALTbilirubin remains normal no abdominal pain I think this is mild ischemic hepatitis related to her known underlying VARNER similar thing happened last admission, will repeat LFTs in a.m. gastroparesis COPD Obstructive sleep apnea - HS CPAP Mash DVT proph - SC Heparin 5000 units BID updated at bedside 05/25 PT/OT Admission and Anticipated Discharge Date Admission Date: May 24, 2024 Subjective increased O2 requirement overnight (0-->2L), CT chest obtained - extensive BROCK consolidation, L pleural effusion 2 L oxygen breathing is very coarse in the left upper lobe she is having a frequent cough but it is nonproductive she continues to have generalized malaise does not feel well, no abdominal pain Physical Exam 2 Physical Exam: PHYSICAL EXAMINATION Last 24h vital signs reviewed, see documentation in flowsheet General: awake continues to be ill-appearing HEENT: Normocephalic, atraumatic, pupils round and equal, sclerae anicteric, no conjunctival injection, moist mucus membranes Lungs: still coughing frequently very coarse left upper lobe anteriorly and posteriorly, right side is clear Heart: Regular rate and rhythm, no murmurs. No JVD Abdomen: Soft, nontender, nondistended. Bowel sounds present. Extremities: Warm, dry, well-perfused. 1+ extremity edema. Neuro: Alert and oriented x 4, face symmetric, moves 4 extremities well Psych: Normal affect and behavior Results & Data Results & Data Vital Signs (Past 12 Hours) Vital Signs Temp Pulse Pulse Resp BP Pulse Ox O2 Del Method 05/27/24 02:53 36.7 C 80 18 112/69 97 Nasal Cannula 05/26/24 22:30 73 05/26/24 22:27 36.8 C 73 18 103/61 94 Nasal Cannula 05/26/24 21:47 Nasal Cannula 05/26/24 21:25 85 05/26/24 21:03 95 Nasal Cannula 05/26/24 21:02 37.1 C 88 20 128/74 87 L Room Air O2 Flow Rate 05/27/24 02:53 2 05/26/24 22:30 05/26/24 22:27 2 05/26/24 21:47 2 05/26/24 21:25 05/26/24 21:03 2 05/26/24 21:02 Laboratory Results 05/26/24 23:24 05/27/24 06:02 PG Care Time/CCT Total # of Minutes Spent Total Time Spent with Patient: Total time spent is greater than 50% in coordination of care (as documented) at patient's floor/unit and/or counseling patient: Coding Level of Care Code 11755 SUB INP/OBS CARE 3/50MIN Diagnoses Severe sepsis A41.9; R65.20 Hypoglycemia secondary to sulfonylurea T38.3X1A; E16.0 ATN (acute tubular necrosis) N17.0 Acute metabolic encephalopathy G93.41 Acute renal failure N17.9 Acute renal failure type: unspecified Pneumonia J18.9 Laterality: left Lung location: upper lobe of lung Pneumonia type: due to unspecified organism Hyponatremia E87.1 Elevated troponin R79.89 Type 2 diabetes mellitus without complication, without long-term current use of insulin E11.9 Diabetes mellitus complication status: without complication Diabetes mellitus solutions delivery consultant insulin use: without solutions delivery consultant use Bipolar disorder F31.9 GERD (gastroesophageal reflux disease) K21.9 Hypothyroidism E03.9 Chronic pancreatitis K86.1 (5) Acute renal failure Acute renal failure type: unspecified Qualified Code(s): N17.9 - Acute kidney failure, unspecified (6) Pneumonia Laterality: left Lung location: upper lobe of lung Pneumonia type: due to unspecified organism Qualified Code(s): J18.9 - Pneumonia, unspecified organism (9) Type 2 diabetes mellitus Diabetes mellitus complication status: without complication Diabetes mellitus care home insulin use: without care home use Qualified Code(s): E11.9 - Type 2 diabetes mellitus without complications
[2024-05-27] MEDS: FUROSEMIDE INJ 20 MG/2 ML VIAL IV ONE (11:07)
--- NOTE | 2024-05-27 12:07 | Electrocardiogram Report ---
Test Reason : Blood Pressure : */* mmHG Vent. Rate : 73 BPM Atrial Rate : 73 BPM P-R Int : 170 ms QRS Dur : 108 ms QT Int : 416 ms P-R-T Axes : 13 13 60 degrees QTcB Int : 458 ms Normal sinus rhythm Normal ECG When compared with ECG of 23-May-2024 21:08, Vent. rate has decreased by 51 bpm Confirmed by Odin Delaney ([id number]) on 05/27/2024 12:07:38 PM Referred By: REFERRED SELF Confirmed By: Odin Delaney
[2024-05-28 07:16] LABS: Albumin Level 2.8 gm/dl (3.4-5.0); BUN Creatinine Ratio 14.2 (10-20); Bilirubin Direct 0.3 mg/dl (0-0.2); Bilirubin,Total 0.6 mg/dl (0.2-1.0); Calcium 9.3 mg/dl (8.6-10.3); Creatinine Clr Calc Pharmacy 49.8 ml/min; Est GFR (African American) 66.6 ml/min; Est GFR (Non-African American) 57.4 ml/min; Potassium 3.6 mmol/L (3.5-5.1); Total Protein 5.3 gm/dl (6.0-8.3)
--- NOTE | 2024-05-28 15:16 | Hospitalist Progress Note ---
Date of Service May 28, 2024 Assessment & Plan (1) Severe sepsis: Plan: 58 y/o with recent admission for acute pancreatitis admitted with sepsis due to BROCK pneumonia sepsis resolved, afebrile >24h and leukocytosis resolved. blood cx NGTD increased O2 requirement 05/27, CT chest obtained - extensive BROCK consolidation, L pleural effusion - hypoxia significantly improved after dose of IV Lasix on 05/27 continue doxycycline and pip-tazo for pneumonia attempt to get sputum culture although it has been nonproductive thus far, MRSA nares was negative. still has not produced sputum for sample guaifenex and flutter valve monitor moderate L effusion - reviewed CT images, effusion may not be large enough for thoracentesis follow up imaging to resolution (2) Hypoglycemia secondary to sulfonylurea: Plan: Home DM regimen - Jardiance, glimepiride, metformin. a.m. cortisol was 32 triggered by sepsis and sulfonylurea resolved (3) ATN (acute tubular necrosis): Plan: ATN is sepsis-associated. No evidence of obstruction on admission CT. resolved Cr improved to baseline of 1, metabolic acidosis resolved (4) Acute metabolic encephalopathy: Plan: 2nd to ATN/ERNIE, severe sepsis/pneumonia, hypoglycemia, etc. Head CT at admission negative. resolved (5) Acute renal failure: Plan: see above (6) Pneumonia: Plan: BROCK see above (7) Hyponatremia: Plan: Presenting Na level - 125. resolved with IV fluids and treatment of sepsis Cortisol level wnl TSH wnl (8) Elevated troponin: Plan: mild elevation at 25 --> 35 -->15 this is most likely myocardial demand ischemia in the setting of severe sepsis no evidence of ACS (9) Type 2 diabetes mellitus: Plan: hemoglobin a1c = 7.5% - 01/2024 oral medications held continue short acting insulin - today I increased the CF and CR because she has had 2 glucose checks above goal (10) Bipolar disorder: Plan: continue home medications including lithium (level acceptable), olanzapine, fluvoxamine (11) GERD (gastroesophageal reflux disease): Plan: continue famotidine, PPI (12) Hypothyroidism: Plan: TSH= 0.99 continue levothyroxine (13) Chronic pancreatitis: Plan: known history of such based on records prior h/p pancreatic pseudocyst recent hospitalization 1 week prior to admission for acute/chronic pancreatitis lipase level undetectable on admission follows with [facility] for her chronic pancreatitis, MASH without fibrosis/cirrhosis, etc. Plan elevated AST and ALTbilirubin remains normal no abdominal pain I think this is mild ischemic hepatitis related to her known underlying VARNER similar thing happened last admission, LFTs improved on 05/28 gastroparesis COPD Obstructive sleep apnea - HS CPAP Mash DVT proph - SC Heparin 5000 units BID updated at bedside 05/25 PT/OT Admission and Anticipated Discharge Date Admission Date: May 24, 2024 Subjective still fatigued and dyspneic with nonproductive cough hypoxia significantly improved after dose of diuretics yesterday with large urine output Physical Exam 2 Physical Exam: PHYSICAL EXAMINATION Last 24h vital signs reviewed, see documentation in flowsheet General: lying on side in bed appears fatigued, still ill-appearing HEENT: Normocephalic, atraumatic, pupils round and equal, sclerae anicteric, no conjunctival injection, moist mucus membranes Lungs: left upper lobe coarse, right side anteriorly and posteriorly is clear, frequent nonproductive cough Heart: Regular rate and rhythm, no murmurs. No JVD Abdomen: Soft, nontender, nondistended. Bowel sounds present. Extremities: Warm, dry, well-perfused. no extremity edema. Neuro: Alert and oriented x 4, face symmetric, moves 4 extremities well Psych: Normal affect and behavior Results & Data Results & Data Vital Signs (Past 12 Hours) Vital Signs Temp Pulse Pulse Resp BP Pulse Ox O2 Del Method 05/28/24 14:30 75 05/28/24 11:46 36.5 C 81 16 104/66 90 Room Air 05/28/24 08:16 36.5 C 93 H 20 131/84 94 Nasal Cannula 05/28/24 07:01 68 05/28/24 07:00 Nasal Cannula 05/28/24 03:18 36.7 C 75 18 128/74 93 Nasal Cannula O2 Flow Rate 05/28/24 14:30 05/28/24 11:46 05/28/24 08:16 1.5 05/28/24 07:01 05/28/24 07:00 1.5 05/28/24 03:18 1.5 Laboratory Results 05/26/24 23:24 05/28/24 06:19 PG Care Time/CCT Total # of Minutes Spent Total Time Spent with Patient: Total time spent is greater than 50% in coordination of care (as documented) at patient's floor/unit and/or counseling patient: Coding Level of Care Code 14030 SUB INP/OBS CARE 235MIN Diagnoses Severe sepsis A41.9; R65.20 Hypoglycemia secondary to sulfonylurea T38.3X1A; E16.0 ATN (acute tubular necrosis) N17.0 Acute metabolic encephalopathy G93.41 Acute renal failure N17.9 Acute renal failure type: unspecified Pneumonia J18.9 Laterality: left Lung location: upper lobe of lung Pneumonia type: due to unspecified organism Hyponatremia E87.1 Elevated troponin R79.89 Type 2 diabetes mellitus without complication, without long-term current use of insulin E11.9 Diabetes mellitus residential insulin use: without roasterman use Diabetes mellitus complication status: without complication Bipolar disorder F31.9 GERD (gastroesophageal reflux disease) K21.9 Hypothyroidism E03.9 Chronic pancreatitis K86.1 (5) Acute renal failure Acute renal failure type: unspecified Qualified Code(s): N17.9 - Acute kidney failure, unspecified (6) Pneumonia Laterality: left Lung location: upper lobe of lung Pneumonia type: due to unspecified organism Qualified Code(s): J18.9 - Pneumonia, unspecified organism (9) Type 2 diabetes mellitus Diabetes mellitus residential insulin use: without residential use Diabetes mellitus complication status: without complication Qualified Code(s): E11.9 - Type 2 diabetes mellitus without complications
[2024-05-29 15:28] VITALS: BP 129/79; PULSE 65; RESP 20; TEMP 98.1; O2SAT 93
--- NOTE | 2024-05-29 16:15 | Discharge Summary ---
Discharge Summary Date of Service May 29, 2024 Principal Dx & Hospital Course #1 = Principal Diagnosis (1) Severe sepsis: 58 y/o with recent admission for acute pancreatitis admitted with sepsis due to BROCK pneumonia - Sepsis resolved, afebrile >24h and leukocytosis resolved. Blood cx showed no growth. Patient not requiring oxygen. She is in no acute distress. She is requesting to go home. Reports she has been up to the chair and walking around with difficulty or SOB. - On Doxy and Pip-Tazo during admission - will transition to Augmentin x 4.5 more days and Doxy x 1 additional day. RX sent to pharmacy. - Was not able to obtain sputum culture, patient reports mild ongoing dry cough, but that it is much improved. - MRSA nares was negative. - Flutter Valve - Message sent to PCP recommending follow up imaging in 6-8 weeks to ensure resolution of PNA. (2) Hypoglycemia secondary to sulfonylurea: Home DM regimen - Jardiance, glimepiride, metformin. Instructed to continue Jardiance and Metformin, hold glimepiride x 1 week then restart once appetite has returned to normal. (3) ATN (acute tubular necrosis): ATN is sepsis-associated. No evidence of obstruction on admission CT. - Now resolved. - Cr improved to baseline of 1.06, metabolic acidosis resolved (4) Acute metabolic encephalopathy: Secondary to ATN/ERNIE, severe sepsis/pneumonia, hypoglycemia, etc. Head CT at admission negative. This has resolved. (5) Acute renal failure: See Above (6) Pneumonia: See Above. (7) Hyponatremia: Presenting Na level - 125. resolved with IV fluids and treatment of sepsis Cortisol level wnl TSH wnl (8) Elevated troponin: - Mild elevation at 25 --> 35 -->15 - This is most likely myocardial demand ischemia in the setting of severe sepsis - No evidence of ACS (9) Type 2 diabetes mellitus: See #2 (10) Bipolar disorder: continue home medications including lithium, olanzapine, fluvoxamine (11) GERD (gastroesophageal reflux disease): continue famotidine, PPI (12) Hypothyroidism: TSH= 0.99 - Continue levothyroxine (13) Chronic pancreatitis: known history of such based on records prior h/p pancreatic pseudocyst recent hospitalization 1 week prior to admission for acute/chronic pancreatitis lipase level undetectable on admission follows with [facility] for her chronic pancreatitis, MASH without fibrosis/cirrhosis, etc. Plan Discharge patient to home where she lives with her . Admission HPI Per Admitting Provider 58 year old female with a past medical history of DM2, gastroparesis, Bipolar disorder, hypothyroidism, 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 Symptoms started 05/20 with cough, congestion, fatigue, subjective fever, intermittent vomiting. Her friend called her on 05/24 and she was not making sense on the phone, which prompted her to bring her in to the ER. Friend notes some word finding difficulties and confusion, denies weakness, sensory changes. Recently admitted from 05/12-05/14 for acute on chronic pancreatitis. At present she denies chest pain, dyspnea, abdominal pain, nausea. Patient evaluated in the ER- she was septic with WBC=16, EE=739x. CXR with left upper lobe infiltrates. Na= 125. Cr = 3.15. Procal= 3.8. CT chest showed L upper lobe pneumonia and L pleural effusion. She was treated in the ER with Doxycycline, Daptomycin, and Ceftriaxone. Patient was admitted to the hospital and started on Zosyn and Doxycycline. Admission Exam Per Admitting Provider Constitutional: well-appearing, no acute distress HEENT: NCAT, no conjunctival injection CV: regular rhythm, no murmur appreciated, extremities well-perfused, no LE edema Resp: Scattered wheezing, + rhonchi left, no increased work of breathing GI: soft, nondistended, nontender MSK: no gross deformities appreciated Skin: warm, dry, no rash appreciated Neuro: alert, oriented, no focal neurologic deficit appreciated- CN II-XII intact, moving all extremties Discharge Exam Constitutional well developed and well nourished; no acute distress and not ill appearing Eyes PERRL and EOM intact bilaterally Neck normal visual inspection and trachea midline Respiratory normal respiratory effort; no respiratory distress, no labored breathing and does not use accessory muscles Auscultation: lungs clear to auscultation bilaterally Cardiovascular RRR, no murmur, no edema Gastrointestinal (Abdomen) normal bowel sounds, soft, nontender, no hepatosplenomegaly Musculoskeletal Extremities: extremities normal to inspection Skin no rashes, warm and dry Psychiatric A+Ox3, euthymic affect Discharge Plan Discharge Items Patient Disposition: Home - Self-Care Reason For Visit: SEPSIS Discharge Diagnosis: Pneumonia Activity: Resume your previous activity Non-emergency contact: Primary Care Provider Call non-emergency contact if: your symptoms worsen Follow-up/Referrals: Rocky Long MD [Primary Care Provider] - Diet: Regular Addtl Attending Provider Instructions: Please take your antibiotics as prescribed. Follow up with your primary care provider for further management. You will take Augmentin twice daily for 5 more days and doxycycline twice daily for 1 additional day. Please hold your glimepiride x 1 week until your appetite has normalized - restart next Friday. Use flutter valve. Pending Studies at Discharge: No Stand-Alone Forms: My [employer], Smoking Cessation Medications and DC Order Prescriptions: New amoxicillin-pot clavulanate 875-125 mg tablet 1 tab PO BID Qty: 9 0RF doxycycline hyclate 100 mg capsule 100 mg PO BID Qty: 2 0RF Continued Ubrelvy 100 mg tablet 100 mg PO DAILY PRN (Reason: headache) Qty: 30 3RF Rx Instructions: She may repeat in 2 hours as needed albuterol sulfate [Ventolin HFA] 90 mcg/actuation HFA aerosol inhaler 2 puff inhalation Q4H PRN (Reason: shortness of breath or wheezing) Qty: 8.5 11RF levothyroxine [Synthroid] 50 mcg tablet 50 mcg PO QAM Qty: 90 3RF Linzess 72 mcg capsule 72 mcg PO DAILY (DME) OneTouch Verio test strips Strip See Rx Instructions .Route Qty: 100 11RF Rx Instructions: As directed fluticasone propionate 50 mcg/actuation spray,suspension 2 spray intranasal DAILY Qty: 16 11RF Rx Instructions: administer into each nostril ipratropium bromide 21 mcg (0.03 %) spray,non-aerosol 2 spray intranasal TID PRN (Reason: postnasal drip) Qty: 30 11RF Rx Instructions: administer into each nostril olanzapine 7.5 mg tablet 7.5 mg PO HS paroxetine HCl 40 mg tablet 40 mg PO QAM Adult 50 Plus Probiotic 4 billion cell capsule 4,000 mmu cells PO DAILY Rx Instructions: administer with a meal famotidine 40 mg tablet 40 mg PO BID metformin 750 mg tablet extended release 24 hr 750 mg PO BID 90 Days Qty: 180 3RF Jardiance 10 mg tablet 10 mg PO DAILY Qty: 90 3RF esomeprazole magnesium 40 mg capsule,delayed release(DR/EC) 40 mg PO QAM Qty: 90 3RF (DME) lancets [OneTouch Delica Plus Lancet] 33 gauge misc See Rx Instructions .Route Qty: 100 12RF Rx Instructions: check blood sugar 3 times a day ascorbic acid (vitamin C) [Vitamin C] 1,000 mg Tablet 1 g PO QAM fluvoxamine 100 mg Tablet 200 mg PO HS cholecalciferol (vitamin D3) [Vitamin D3] 1,000 unit Tablet 1,000 unit PO QAM lithium carbonate 300 mg capsule 300 mg PO HS vitamin E 400 unit Capsule 400 unit PO QAM thiamine HCl (vitamin B1) 100 mg tablet 100 mg PO QAM vitamin B complex Tablet 1 tab DAILY (DME) lancets [OneTouch Delica Plus Lancet] 33 gauge misc See Rx Instructions .Route Qty: 100 0RF Rx Instructions: As directed triamcinolone acetonide 0.1 % paste 1 applic dental BID PRN (Reason: Mouth Irritation) Rx Instructions: use after food and/or drink and/or oral hygiene mometasone 0.1 % ointment 1 applic topical DAILY PRN (Reason: Itching) ondansetron 4 mg tablet,disintegrating 4 mg PO Q6H PRN (Reason: nausea and vomiting) Qty: 20 0RF Held glimepiride 4 mg tablet 4 mg PO DAILY Qty: 30 2RF Hold Instructions: Resume on 06/05/24. Rx Instructions: take one half tablet for 4 days then increase to one tablet daily Discontinued nystatin 100,000 unit/mL suspension 100,000 unit PO TID PRN (Reason: Mouth Irritation) oxycodone 5 mg Tablet 5 mg PO Q4H PRN (Reason: pain) Qty: 10 0RF Discharge Orders: Discharge Order (Routine); Ordered 05/29/24 Ordered By: Rekha Valerio/Other Patient Handouts: What Is Pneumonia?, When You Have Pneumonia Admission Data Admit Date/Time: 05/24/24 00:57 Attending Provider: Rekha Mancilla Admit Provider: Geneva Grayson Primary Care Provider: Rocky Long Other Interventions: Discharge Summary Assessment (RN) Last Done: 05/29/24 15:20 Hospital Stay Data Diagnostic Imagining Performed 05/23/24 21:32 CT head/brain wo con Stat 05/23/24 21:51 CT abd pelvis wo con Stat 05/27/24 03:36 CT chest diagnostic wo con Urgent Pending Results Patient Have Any Pending Studies at Discharge: No Discharge Instructions Given to Patient (Per Discharging Provider) Please take your antibiotics as prescribed. Follow up with your primary care provider for further management. You will take Augmentin twice daily for 5 more days and doxycycline twice daily for 1 additional day. Please hold your glimepiride x 1 week until your appetite has normalized - restart next Friday. Use flutter valve. Total Time Total Time Spent Total Time Spent (In Minutes): 30 Coding [place] [address] IN/OBS DISCH 30 MIN/LESS Patient Type Established History Expanded Problem Focused Exam Expanded Problem Focused Medical Decision Making Moderate Complexity Diagnoses Severe sepsis A41.9; R65.20 Hypoglycemia secondary to sulfonylurea T38.3X1A; E16.0 ATN (acute tubular necrosis) N17.0 Acute metabolic encephalopathy G93.41 Acute renal failure N17.9 Acute renal failure type: unspecified Pneumonia J18.9 Laterality: left Lung location: upper lobe of lung Pneumonia type: due to unspecified organism Hyponatremia E87.1 Elevated troponin R79.89 Type 2 diabetes mellitus without complication, without long-term current use of insulin E11.9 Diabetes mellitus lobsterman insulin use: without lobsterman use Diabetes mellitus complication status: without complication Bipolar disorder F31.9 GERD (gastroesophageal reflux disease) K21.9 Hypothyroidism E03.9 Chronic pancreatitis K86.1
== END 2024-05-29 15:49 | disposition home or self-care (01) | DRG 871 ==
LOC: ED 20:19 → 2N 05-24 00:57 → SUATTDRO 05-24 00:57 → 2N 05-24 02:12